=== PATIENT | female | born 1960 | race Caucasian/White ===

== ENCOUNTER 2023-03-08 10:03 | Outpatient (CLI) | payer MEDICARE, MEDICAID, SELFPAY | END 2023-03-08 10:04 | disposition home or self-care (01) | LOC: AMB 03-13 17:09 | PROVIDERS: PCP Family Medicine; Visit Provider Student in an Organized Health Care Education/Training Program | DX: S79.912A Unspecified injury of left hip, initial encounter (principal); W06.XXXA Fall from bed, initial encounter; Y92.003 Bedroom of unspecified non-institutional (private) residence as the place of occurrence of the external cause | CPT/HCPCS: A0425; A0427 ==

== ENCOUNTER 2023-03-08 10:17 | Inpatient (IN) | payer MEDICARE, MEDICAID, SELFPAY ==
[2023-03-08] VITALS (11 sets, daily range): BP systolic 83–154; BP diastolic 26–84; PULSE 90–110; RESP 16–18; TEMP 36.7–37; O2SAT 86–97; BMI 55.7; BMI 57.2
--- NOTE | 2023-03-08 11:15 | CRLHL7_ITS ---
For Patients: As a result of the Century Cures Act, medical imaging exams and procedure reports are released immediately into your electronic medical record. You may view this report before your referring provider. If you have questions, please contact your health care provider. HISTORY: Blunt trauma. Fall. Pain. TECHNIQUE: Intravenous contrast enhanced CT of the chest, abdomen and pelvis. 150 mL Isovue-370 intravenous contrast was administered. COMPARISON: Chest CT from 06/03/2021. FINDINGS: Chest: Atherosclerotic changes of the thoracic aorta without aneurysm or dissection. There is no pericardial effusion. No mediastinal hematoma. Assessment for pulmonary embolism limited by respiratory motion artifact. There is no large/central pulmonary embolism. No technically enlarged mediastinal or hilar lymph nodes. - Lung parenchymal assessment limited by respiratory motion artifact. There are areas of atelectasis within both lungs. Ground-glass opacity within the right middle lobe laterally may relate either to atelectasis or ground-glass infiltrate. There is no lung consolidation. No pleural effusion or pneumothorax. Assessment for pulmonary nodules is severely limited by respiratory motion artifact. - Rib assessment limited by motion artifact. No acute displaced rib fracture is seen. No acute sternal fracture. There degenerative changes of the thoracic spine. No acute thoracic spine fracture. ----- Abdomen and pelvis: No acute liver parenchymal injury. There is fatty infiltration of liver. Gallbladder is distended with small gallstones. No biliary ductal dilatation. No definite acute splenic parenchymal injury. The low density noted posteriorly is felt to be artifactual. No focal pancreatic abnormality. Bilateral adrenal gland nodules are unchanged. No acute renal parenchymal injury. No hydronephrosis. No renal mass is inherent. Urinary bladder is decompressed by a catheter. - No dilated small bowel loops. No appendicitis. Colonic diverticulosis without acute diverticulitis. No fluid collection or free air. - Atherosclerotic changes of the abdominal aorta without aneurysm. Small nonspecific retroperitoneal lymph nodes. - No acute pelvic fracture. There are degenerative changes of the sacroiliac joints and hips. Degenerative changes within the spine. IMPRESSION: 1. No acute fractures. 2. Areas of atelectasis within both lungs. Ground-glass opacity within the right middle lobe may relate to atelectasis or ground-glass infiltrate. No pneumothorax or pleural effusion. 3. No mediastinal hematoma or acute traumatic aortic injury. 4. No solid organ injury within the abdomen. No abdominal or pelvic free fluid. 5. Fatty infiltration of the liver. Distended gallbladder with small gallstones. 6. No change in adrenal gland nodules. Dictated by Conor Ballard MD @ 03/08/2023 4:58:35 PM Please note that all CT scans at this facility use dose modulation, iterative reconstruction, and/or weight-based dosing when appropriate to reduce radiation dose to as low as reasonably achievable. Dictated by: Conor Ballard MD @ 03/08/2023 16:59:01 (Electronically Signed)
--- NOTE | 2023-03-08 11:15 | CRLHL7_ITS ---
For Patients: As a result of the Cures Act, medical imaging exams and procedure reports are released immediately into your electronic medical record. You may view this report before your referring provider. If you have questions, please contact your health care provider. INDICATION: Fall. Neck pain. COMPARISON: 06/03/2021. TECHNIQUE: Noncontrast CT cervical spine. FINDINGS: Stable straightening and reversal of the normal cervical lordosis. Otherwise, normal vertebral body and facet alignment. No acute fractures. No vertebral body loss of height. No spondylolisthesis. No fractures of the visualized upper ribs. No prevertebral soft tissue swelling. Cervical spondylosis with multilevel disc degeneration. C1-2: No spinal canal narrowing. C2-3, C3-4 and C4-5: No spinal canal neural foraminal narrowing. C5-6: No spinal canal neural foraminal narrowing. C6-7: Disc degeneration. No narrowing of the spinal canal. Mild narrowing of the right neural foramen. No narrowing of left neural foramen. C7-T1: No spinal canal neural foraminal narrowing. Lung apices are clear. Carotid artery calcifications at the level of C3-4. IMPRESSION: 1. Straightening of the normal cervical lordosis. Otherwise normal alignment. 2. No acute fractures. No vertebral body loss of height. 3. No prevertebral soft tissue swelling. 4. Stable cervical spondylosis Please note that all CT scans at this facility use dose modulation, iterative reconstruction, and/or weight-based dosing when appropriate to reduce radiation dose to as low as reasonably achievable. Dictated by Tre Sarmiento MD @ 03/08/2023 2:18:31 PM (Electronically Signed)
--- NOTE | 2023-03-08 11:16 | CRLHL7_ITS ---
For Patients: As a result of the Century Cures Act, medical imaging exams and procedure reports are released immediately into your electronic medical record. You may view this report before your referring provider. If you have questions, please contact your health care provider. INDICATION: Head trauma. Comparison 06/03/2021. TECHNIQUE: Noncontrast CT head. FINDINGS: Mild motion artifact. Normal brain parenchymal morphology. 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 Associated ex vacuo dilatation of the right lateral ventricle. No acute intracranial hemorrhage, acute infarct, mass effect, or fracture. No midline shift. Normal calvarium and skull base. Visualized paranasal sinuses are clear. Allowing for artifact, mastoid air cells are grossly clear. IMPRESSION: 1. Motion artifact. 2. No acute intracranial abnormality. 3. 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 Ex vacuo dilatation of the right lateral ventricle Please note that all CT scans at this facility use dose modulation, iterative reconstruction, and/or weight-based dosing when appropriate to reduce radiation dose to as low as reasonably achievable. Dictated by Tre Sarmiento MD @ 03/08/2023 1:52:07 PM (Electronically Signed)
--- NOTE | 2023-03-08 11:18 | CRLHL7_ITS ---
For Patients: As a result of the Cures Act, medical imaging exams and procedure reports are released immediately into your electronic medical record. You may view this report before your referring provider. If you have questions, please contact your health care provider. INDICATION: BLUNT TRAUMA SHOULDER PAIN HISTORY: Fall. Evaluate for fracture. COMPARISON: None. TECHNIQUE: Left shoulder, 3 views. 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 There is no acute fracture visualized. Mineralization is reduced. No foreign body or soft tissue gas. The scapula appears intact. No dislocation on the transscapular Y-view. IMPRESSION: 1. No acute bone abnormality. 2. Degenerative arthrosis. Dictated by Demetrio Watkins MD @ 03/08/2023 2:19:13 PM Dictated by: Demetrio Watkins MD @ 03/08/2023 14:19:20 (Electronically Signed)
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
[2023-03-08 11:34] LABS: Lactate* 2.3 mmol/L (0.5-1.9)
[2023-03-08 11:55] LABS: Albumin* 3.7 g/dL (3.3-5.0); Chloride* 100 mmol/L (96-114)
[2023-03-08 11:56] LABS: Sodium* 135 mmol/L (135-149)
[2023-03-08 11:58] LABS: Anion Gap 11 mEq/L (7-15); Bilirubin Total* 0.9 mg/dL (0.1-1.5); Carbon Dioxide* 24 mmol/L (20-32); Creatinine* 0.9 mg/dL (0.5-1.5); Est. Creatinine Clearance* 55.31; Estimated Glomerular Filt Rate 73 ml/min; Total Protein* 6.7 g/dL (6.0-8.3)
[2023-03-08 11:59] LABS: Alanine Aminotransferase* 21 U/L (4-35); Alkaline Phosphatase* 109 U/L (40-150); Blood Urea Nitrogen* 26 mg/dL (7-30); Calcium* 8.9 mg/dL (8.4-10.6); Glucose* 105 mg/dL (60-115)
[2023-03-08 12:11] LABS: Basophils Absolute Auto 0.01 K/uL (0.00-0.30); Basophils Percent Auto 0.1 % (0.0-3.0); Eosinophils Absolute Auto 0.08 K/uL (0.00-0.50); Eosinophils Percent Auto 1.2 % (0.0-7.0); Hematocrit 39.6 % (33.0-51.0); Hemoglobin* 11.9 gm/dL (12.0-16.0); Immature Granulocytes Abs Auto 0.01 K/uL (0.00-0.30); Immature Granulocytes Pct Auto 0.1 %; Lymphocytes Percent Auto 9.9 % (20-44); Mean Corpuscular HGB Conc 30 gm/dL (32-36); Mean Corpuscular Hemoglobin 27 pg (26-34); Mean Corpuscular Volume 90 fL (80-100); Monocytes Percent Auto 8.7 % (0.0-11.0); Platelet Count* 223 K/uL (140-440)
--- NOTE | 2023-03-08 12:12 | ED.NURSE ---
placed a anderson cath in #18 fr to gravity and collected the urine from the clean anderson bag and sent to lab. urine is cloudy, straw color, and sediment. drained out 600 plus urine.
[2023-03-08 12:14] LABS: Troponin I* < 0.01 ng/mL (0.01-0.04)
[2023-03-08 12:17] LABS: PCR FLU A Negative PCR FLU A (Negative); PCR FLU B Negative PCR FLU B (Negative); PCR RSV Negative PCR RSV (Negative)
[2023-03-08 12:18] LABS: Slide Review Reflex No
[2023-03-08 12:18] LABS: SARS PCR* Negative SARS-CoV-2 (Negative)
[2023-03-08 12:23] LABS: INR 2.62 (0.91-1.10); Prothrombin Time 29.3 Seconds
[2023-03-08 12:28] LABS: Aspartate Amino Transferase* 51 U/L (12-35); Potassium* 5.1 mmol/L (3.6-5.1)
[2023-03-08 12:32] LABS: Appearance Urine Cloudy (Clear); Bilirubin Urine Negative (Negative); Blood Urine 3+ (Negative); Color Urine Dark yellow (Yellow); Glucose Urine Negative (Negative); Ketones Urine Trace (Negative); Leukocyte Esterase Urine 3+ (Negative); Nitrite Urine Positive (Negative); Protein Urine 2+ (Negative); Specific Gravity Urine 1.025 (1.000-1.030); Urobilinogen Urine 0.2 (0.2-1.0)
[2023-03-08 12:38] LABS: Bacteria Urine Many; RBC Urine >100 (0-2); WBC Urine >100 (0-5)
[2023-03-08] MEDS: 0.9 % SODIUM CHLORIDE 1000 ml 1,000 ML IV (13:58)
[2023-03-08] MEDS: fentaNYL 100 MCG/2 ML inj 25 MCG IVP (14:01)
[2023-03-08] MEDS: cefTRIAXone 1 GM in 0.9 % SODIUM CHLORIDE Mini-bag 100 ML IVPB (14:29)
--- NOTE | 2023-03-08 18:58 | P.IMHP_ITS ---
Hospitalist- H&P: JUDY History of Present Illness Time Seen by Provider: 18:59 Date Seen: 03/08/23 Chief complaint: Fall, hip pain Narrative: Tatianna Stinson is a 62 year old female history of left arm and partial leg paresis secondary to a stroke in 2018 who lives at home with several generations, fell out of bed this morning and when EMS arrived, was reportedly covered in feces and the house was in shambles. Her daughter, Harriet, who does not live with her, is here with her and called Douglas, the patient's son who lives in [place], and put him on speaker for the duration of the visit. Harriet and Douglas asked me if the ER physician had clued me in, but would not speak of anything about the condition of the home or her care in front of her, and remained in her room with her. Tatianna remembers trying to get out of bed using the bar that she has above her bed. She felt dizzy and ended up falling onto her left side. She has been feeling dizzy frequently lately for which she saw Dr. Damon just this past week. Her daughter, Harriet, took her to that visit. At that visit her blood pressure was low as it had been for several visits previously. Dr. Damon decreased her lisinopril from 20 to 5. She just started taking that dose 2 days ago. He also stopped warfarin because she had been supratherapeutic for several checks and she was going to start on Eliquis instead. Please also says that she has been feeling foggy or cloudy in the head lately. Her children have not noticed any changes in her mentation, but note that she sometimes forgets what day it is and her memory has been declining over months. Harriet works at [employer], and tries to check in on her mom as often as she can. Douglas calls her to talk with her, but because he lives in [place] has only been able to see her about once a year, and does have a visit scheduled in a few weeks. Ivory tells me that she has been working with Tatianna's home health care case manager to get various things around the house fixed such as a tub. Tatianna has not been able to bathe in quite some time because the tub is not working and Tatianna often refuses care. Her children tell me that Tatianna will pick favorites for caregivers and if things are not done exactly as Tatianna wants, she will refuse cares altogether. Tatianna has been refusing to wear her home oxygen during the day. She will bleed it through her CPAP at night, but the mask is broken and so she just holds the hose near her mouth. Harriet tells me that this is what they were told to do until Harriet could get a new mask for it. Douglas is concerned that Tatianna has gained weight since she had a stroke in 2018 and her weight gain has made it difficult for her to move and so she has gotten weak. She is now using a wheelchair. Douglas also notes that Tatianna has had problems with incontinence of urine and he thinks that the mesh from her bladder repair many years ago is starting to give out. They have seen Dr. Damon about this, no referrals were made. Tatianna has had chronic lower extremity edema, but no shortness of breath. She has difficulty swallowing pills, but this is not new. Also since her stroke she has had chronic left shoulder pain and they have been told that this is likely from nerve damage from the stroke. In the last few days to weeks she has had increas ed frequency of urine, incontinence of urine although this is not new, and felt extra thirsty. All of them tell me that anxiety and depression have been a big problem and Tatianna has been working with a psychiatrist to adjust medications for insomnia. Review of Systems Status of ROS: Reports: 10 or more systems reviewed and unremarkable except as noted in History and below Narrative: Feels cold now in the hospital, but did not have chills before presenting here. Const: Reports: change in weight (weight gain since stroke, depression) and change in sleep pattern (worked nights for years, now retired, has difficulty sleeping); Denies: fever or chills Eyes: Denies: change in vision ENMT: Reports: difficulty swallowing (pills, h/o dysphagia, esoph dilation procedure) Cardio: Reports: edema, swelling of feet/ankles and lightheadedness; Denies: shortness of breath with exertion Resp: Denies: shortness of breath GI: Reports: difficulty swallowing (pills, h/o dysphagia, esoph dilation procedure); Denies: abdominal pain, nausea or vomiting : Reports: urinary frequency and urinary incontinence; Denies: painful urination Musculo: Reports: muscle weakness (generalized, also left arm from stroke) Integ/Breast: Reports: rash, skin pain and sores Neuro: Reports: dizziness and other Psych: Reports: anxiety, loss of interest, memory loss and other (cries out at night) Endo: Reports: excessive urination, excessive thirst and change in body appearance Justin/Lymph: Reports: easy bruising [facility] History (Updated 03/08/23 @ 23:23 by Diane Colvin MD) Pap smear for cervical cancer screening ?Z12.4 - Encounter for screening for malignant neoplasm of cervix (ICD-10) Morbid exogenous obesity ?E66.01 - Morbid (severe) obesity due to excess calories (ICD-10) Dementia with mood disturbance ?F03.93 - Unspecified dementia, unspecified severity, with mood disturbance (ICD-10) Seizures ?R56.9 - Unspecified convulsions (ICD-10) Paroxysmal atrial fibrillation ?I48.0 - Paroxysmal atrial fibrillation (ICD-10) Sensorineural hearing loss of both ears ?H90.3 - Sensorineural hearing loss, bilateral (ICD-10) Insomnia ?G47.00 - Insomnia, unspecified (ICD-10) Personality disorder ?F60.9 - Personality disorder, unspecified (ICD-10) Pharyngoesophageal dysphagia (~07/2017) ?R13.14 - Dysphagia, pharyngoesophageal phase (ICD-10) Pain medication agreement ?Z02.89 - Encounter for other administrative examinations (ICD-10) Hemiplegia ?G81.90 - Hemiplegia, unspecified affecting unspecified side (ICD-10) Anxiety disorder ?F41.9 - Anxiety disorder, unspecified (ICD-10) Severe episode of recurrent major depressive disorder, without psychotic features ?F33.2 - Major depressive disorder, recurrent severe without psychotic features (ICD-10) Hyperplastic colon polyp (~06/2012) ?K63.5 - Polyp of colon (ICD-10) Essential hypertension ?I10 - Essential (primary) hypertension (ICD-10) GERD (gastroesophageal reflux disease) ?K21.9 - Gastro-esophageal reflux disease without esophagitis (ICD-10) Nonunion of joint fusion Tobacco dependency ?F17.200 - Nicotine dependence, unspecified, uncomplicated (ICD-10) Hypercholesteremia ?E78.00 - Pure hypercholesterolemia, unspecified (ICD-10) CVA (cerebral vascular accident) (~09/2020) ?I63.9 - Cerebral infarction, unspecified (ICD-10) Surgical History (Updated 03/08/23 @ 18:51 by Diane Colvin MD) History of tubal ligation (~1988) ?Z98.51 - Tubal ligation status (ICD-10) Hx of tonsillectomy (~1969) ?Z90.89 - Acquired absence of other organs (ICD-10) H/O foot surgery (~09/15/12) ?Z98.890 - Other specified postprocedural states (ICD-10) History of axillary surgery (~11/08/10) ?Z98.890 - Other specified postprocedural states (ICD-10) Status post right foot surgery (~01/23/10) ?Z98.890 - Other specified postprocedural states (ICD-10) History of lumbar laminectomy (~1997) ?Z98.890 - Other specified postprocedural states (ICD-10) History of total knee arthroplasty ?Z96.659 - Presence of unspecified artificial knee joint (ICD-10) History of section ?Z98.891 - History of uterine scar from previous surgery (ICD-10) History of carpal tunnel release (~2010) ?Z98.890 - Other specified postprocedural states (ICD-10) History of bunionectomy (~2005) ?Z98.890 - Other specified postprocedural states (ICD-10) H/O bladder repair surgery ?Z98.890 - Other specified postprocedural states (ICD-10) H/O arthroscopy (~03/07/15) ?Z98.890 - Other specified postprocedural states (ICD-10) H/O esophagogastroduodenoscopy ?Z98.890 - Other specified postprocedural states (ICD-10) Hx of colonoscopy ?Z98.890 - Other specified postprocedural states (ICD-10) Family History (Updated 03/08/23 @ 18:55 by Diane Colvin MD) Brother Alcohol dependence Sister Alcohol dependence Brother Cancer Father Lymphoma Mother Lung cancer Diabetes Aunt Breast cancer Maternal Grandmother Breast cancer Brother Myocardial infarction, Onset Age: 47 Aunt Heart disease Uncle Heart disease Social History (Updated 03/08/23 @ 20:44 by Diane Colvin MD) Narrative: Lives with , 1 daughter and her son and his fiancee. She has smoked 1 pack of cigarettes per day for 30 years. She denies alcohol use. She tried some THC gummies earlier this month for sleeping, but they did not do anything, so she stopped them, and she says that was the only time she has ever used recreational drugs. What is your current living situation?: I presently have a place to live Problems where you live: no known problems Problems where you live details: n/a In the past 12 months, utilities in danger of being shut off: no In past 12 months, lack of transportation kept you from medical appts, meetings, work, or getting things needed for daily living: no In the past 12 mos, have been you worried that your food would run out before you had money to buy more?: never true In the past 12 mos, the food you bought just didn't last and you didn't have money to buy more?: never true Do you use any of these nicotine containing products: None Second hand tobacco smoke exposure: No How often do you have a drink containing alcohol: never How often do you have six or more drinks on one occasion: Never AUDIT-C Alcohol total score: 0 Caffeine: Yes (Soda) How often does anyone, including family, friends and others, physically hurt you : rarely How often does anyone, including family, friends and others, insult or talk down to you: frequently How often does anyone, including family, friends and others, threaten you with harm: rarely How often does anyone, including family, friends and others, scream or curse at you: rarely Meds Home Medications and Allergies Home Medications Medication Instructions Recorded Confirmed Type albuterol sulfate 90 mcg/actuation 2 puff inhalation Q4H PRN 03/08/23 03/08/23 History aerosol inhaler apixaban 5 mg tablet (Eliquis) 5 mg PO BID 03/08/23 03/08/23 History aspirin 81 mg capsule 81 mg PO DAILY 03/08/23 03/08/23 History atorvastatin 40 mg tablet 40 mg PO DAILY 03/08/23 03/08/23 History buspirone 30 mg tablet 30 mg PO BID 03/08/23 03/08/23 History escitalopram oxalate 20 mg tablet 20 mg PO DAILY 03/08/23 03/08/23 History fluticasone propionate 50 1 spray intranasal DAILY 03/08/23 03/08/23 History mcg/actuation nasal spray,suspension gabapentin 400 mg capsule 400 mg PO TID 03/08/23 03/08/23 History lamotrigine 100 mg tablet 200 mg PO QPM 03/08/23 03/08/23 History levetiracetam 500 mg tablet 500 mg PO BID 03/08/23 03/08/23 History lisinopril 5 mg tablet 5 mg PO DAILY 03/08/23 03/08/23 History loratadine 10 mg tablet (Claritin) 10 mg PO DAILY 03/08/23 03/08/23 History melatonin 5 mg capsule 10 mg PO QPM 03/08/23 03/08/23 History mirtazapine 30 mg tablet 30 mg PO QPM 03/08/23 03/08/23 History omeprazole 20 mg capsule,delayed 20 mg PO DAILY 03/08/23 03/08/23 History release oxybutynin chloride 15 mg 15 mg PO DAILY 03/08/23 03/08/23 History tablet,extended release 24 hr trazodone 100 mg tablet 200 mg PO QPM 03/08/23 03/08/23 History trazodone 50 mg tablet 25 mg PO DAILY PRN 03/08/23 03/08/23 History Home Medication Comments: Uses CPAP, home O2 (2L continuous), and wheelchair Allergies Allergy/AdvReac Type Severity Reaction Status Date / Time Penicillins Allergy Intermediate Verified 03/08/23 10:42 venlafaxine [From Effexor] Allergy Mild Hives Verified 03/08/23 10:42 Venlafaxine Analogues Allergy Mild hives Verified 03/08/23 14:21 Exam Narrative: Exam Narrative: General: No acute distress. Awake alert oriented x3 and to situation. Morbidly obese. Affect: Depressed, withdrawn. HEENT: Normocephalic atraumatic, pupils equally round and reactive to light and accommodation. Oropharynx clear, does not have teeth. Mucous membranes are moist. No cervical lymphadenopathy, thyromegaly or carotid bruits. No JVD. Cardiovascular: Regular rate and rhythm. No murmurs, gallops, or rubs. Chest: No increased work of breathing. Clear to auscultation bilaterally. No crackles or wheezes. Abdomen: Bowel sounds present. Soft, nondistended, nontender. Extremities: 2+ pitting edema bilaterally to the back of her thighs, no cyanosis or clubbing. Feet are edematous, without redness or ulcers. Skin: No jaundice, no pallor, extensive maceration and erythema in all skin folds especially the left groin and right breast. Large areas of ecchymosis over the anterior left chest, lateral left thigh, and posterior lateral left ankle. Neuro: Decreased strength of left leg and marked left arm. Strength of right arm and leg are intact. According to her daughter was in the room, these are baseline deficits. Const: Vital Signs, click to edit/add: Vital Signs - 24 hr 03/08/23 10:20 03/08/23 10:30 03/08/23 10:33 Temperature 98.6 F Pulse Rate [Pulse Oximeter] 106 H 102 H 107 H Respiratory Rate 18 18 16 Blood Pressure [Ri ght Arm] Blood Pressure [Ri ght Upper Arm] 112/59 L 83/64 L 112/59 L Pulse Oximetry 88 88 86 L Oxygen Delivery Me thod Room Air Room Air Room Air 03/08/23 11:00 03/08/23 11:45 03/08/23 12:00 Temperature Pulse Rate [Pulse Oximeter] 110 H 102 H 108 H Respiratory Rate 18 18 18 Blood Pressure [Ri ght Arm] Blood Pressure [Ri ght Upper Arm] 121/65 131/55 L 154/84 H Pulse Oximetry 89 91 91 Oxygen Delivery Mn thod Room Air Nasal Cannula Nasal Cannula 03/08/23 14:00 03/08/23 18:03 Temperature 98.4 F Pulse Rate [Pulse Oximeter] 97 90 Respiratory Rate 16 16 Blood Pressure [Ri ght Arm] 114/42 L Blood Pressure [Ri ght Upper Arm] 117/54 L Pulse Oximetry 97 90 Oxygen Delivery Me thod Room Air Room Air Hospitalist - H&P: Result Labs Labs: Short CBC 03/08/23 Range/Units 11:40 WBC 6.80 (4.50-11.00) K/uL Hgb 11.9 L (12.0-16.0) gm/dL Hct 39.6 (33.0-51.0) % Plt Count 223 (140-440) K/uL BMP 03/08/23 11:15 Sodium 135 Potassium 5.1 Chloride 100 Carbon Dioxide 24 BUN 26 Creatinine 0.9 Glucose 105 Calcium 8.9 Cardiac Enzymes 03/08/23 Range/Units 11:15 Troponin I < 0.01 L (0.01-0.04) ng/mL Liver Function 03/08/23 Range/Units 11:15 Total Bilirubin 0.9 (0.1-1.5) mg/dL AST 51 H (12-35) U/L ALT 21 (4-35) U/L Alkaline Phosphatase 109 (40-150) U/L Albumin 3.7 (3.3-5.0) g/dL Urine 03/08/23 Range/Units 12:10 Urine Color Dark yellow (Yellow) Urine Appearance Cloudy A (Clear) Urine pH 7.0 (5.0-8.5) Ur Specific [place] 1.025 (1.000-1.030) Urine Protein 2+ A (Negative) Urine Glucose (UA) Negative (Negative) EKG: Normal sinus rhythm, 97 beats per minute, cannot rule out anterior infarct, age undetermined. Ordering Physician: Carmelo Patel M.D. Date of Service: 03/08/23 Procedure(s): CT cervical spine wo con Accession Number(s): [id number] cc: Carmelo Patel M.D.; Cruz Damon M.D.~ For Patients: As a result of the Cures Act, medical imaging exams and procedure reports are released immediately into your electronic medical record. You may view this report before your referring provider. If you have questions, please contact your health care provider. INDICATION: Fall. Neck pain. COMPARISON: 06/03/2021. TECHNIQUE: Noncontrast CT cervical spine. FINDINGS: Stable straightening and reversal of the normal cervical lordosis. Otherwise, normal vertebral body and facet alignment. No acute fractures. No vertebral body loss of height. No spondylolisthesis. No fractures of the visualized upper ribs. No prevertebral soft tissue swelling. Cervical spondylosis with multilevel disc degeneration. C1-2: No spinal canal narrowing. C2-3, C3-4 and C4-5: No spinal canal neural foraminal narrowing. C5-6: No spinal canal neural foraminal narrowing. C6-7: Disc degeneration. No narrowing of the spinal canal. Mild narrowing of the right neural foramen. No narrowing of left neural foramen. C7-T1: No spinal canal neural foraminal narrowing. Lung apices are clear. Carotid artery calcifications at the level of C3-4. IMPRESSION: 1. Straightening of the normal cervical lordosis. Otherwise normal alignment. 2. No acute fractures. No vertebral body loss of height. 3. No prevertebral soft tissue swelling. 4. Stable cervical spondylosis Please note that all CT scans at this facility use dose modulation, iterative reconstruction, and/or weight-based dosing when appropriate to reduce radiation dose to as low as reasonably achievable. Dictated by Tre Sarmiento MD @ 03/08/2023 2:18:31 PM (Electronically Signed) Ordering Physician: Carmelo Patel M.D. Date of Service: 03/08/23 Procedure(s): CT chest abdomen pelv w con Accession Number(s): [id number] cc: Carmelo Patel M.D.; Cruz Damon M.D.~ For Patients: As a result of the Cures Act, medical imaging exams and procedure reports are released immediately into your electronic medical record. You may view this report before your referring provider. If you have questions, please contact your health care provider. HISTORY: Blunt trauma. Fall. Pain. TECHNIQUE: Intravenous contrast enhanced CT of the chest, abdomen and pelvis. 150 mL Isovue-370 intravenous contrast was administered. COMPARISON: Chest CT from 06/03/2021. FINDINGS: Chest: Atherosclerotic changes of the thoracic aorta without aneurysm or dissection. There is no pericardial effusion. No mediastinal hematoma. Assessment for pulmonary embolism limited by respiratory motion artifact. There is no large/central pulmonary embolism. No technically enlarged mediastinal or hilar lymph nodes. - Lung parenchymal assessment limited by respiratory motion artifact. There are areas of atelectasis within both lungs. Ground-glass opacity within the right middle lobe laterally may relate either to atelectasis or ground-glass infiltrate. There is no lung consolidation. No pleural effusion or pneumothorax. Assessment for pulmonary nodules is severely limited by respiratory motion artifact. - Rib assessment limited by motion artifact. No acute displaced rib fracture is seen. No acute sternal fracture. There degenerative changes of the thoracic spine. No acute thoracic spine fracture. ----- Abdomen and pelvis: No acute liver parenchymal injury. There is fatty infiltration of liver. Gallbladder is distended with small gallstones. No biliary ductal dilatation. No definite acute splenic parenchymal injury. The low density noted posteriorly is felt to be artifactual. No focal pancreatic abnormality. Bilateral adrenal gland nodules are unchanged. No acute renal parenchymal injury. No hydronephrosis. No renal mass is inherent. Urinary bladder is decompressed by a catheter. - No dilated small bowel loops. No appendicitis. Colonic diverticulosis without acute diverticulitis. No fluid collection or free air. - Atherosclerotic changes of the abdominal aorta without aneurysm. Small nonspecific retroperitoneal lymph nodes. - No acute pelvic fracture. There are degenerative changes of the sacroiliac joints and hips. Degenerative changes within the spine. IMPRESSION: 1. No acute fractures. 2. Areas of atelectasis within both lungs. Ground-glass opacity within the right middle lobe may relate to atelectasis or ground-glass infiltrate. No pneumothorax or pleural effusion. 3. No mediastinal hematoma or acute traumatic aortic injury. 4. No solid organ injury within the abdomen. No abdominal or pelvic free fluid. 5. Fatty infiltration of the liver. Distended gallbladder with small gallstones. 6. No change in adrenal gland nodules. Dictated by Conor Ballard MD @ 03/08/2023 4:58:35 PM Please note that all CT scans at this facility use dose modulation, iterative reconstruction, and/or weight-based dosing when appropriate to reduce radiation dose to as low as reasonably achievable. Dictated by: Conor Ballard MD @ 03/08/2023 16:59:01 (Electronically Signed) Ordering Physician: Carmelo Patel M.D. Date of Service: 03/08/23 Procedure(s): CT head/brain wo [facility] Accession Number(s): [id number] cc: Carmelo Patel M.D.; Cruz Damon M.D.~ For Patients: As a result of the 21st Century Cures Act, medical imaging exams and procedure reports are released immediately into your electronic medical record. You may view this report before your referring provider. If you have questions, please contact your health care provider. INDICATION: Head trauma. Comparison 06/03/2021. TECHNIQUE: Noncontrast CT head. FINDINGS: Mild motion artifact. Normal brain parenchymal morphology. 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 Associated ex vacuo dilatation of the right lateral ventricle. No acute intracranial hemorrhage, acute infarct, mass effect, or fracture. No midline shift. Normal calvarium and skull base. Visualized paranasal sinuses are clear. Allowing for artifact, mastoid air cells are grossly clear. IMPRESSION: 1. Motion artifact. 2. No acute intracranial abnormality. 3. 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 Ex vacuo dilatation of the right lateral ventricle Please note that all CT scans at this facility use dose modulation, iterative reconstruction, and/or weight-based dosing when appropriate to reduce radiation dose to as low as reasonably achievable. Dictated by Tre Sarmiento MD @ 03/08/2023 1:52:07 PM (Electronically Signed) Ordering Physician: Carmelo Patel M.D. Date of Service: 03/08/23 Procedure(s): XR shoulder LT min 2V Accession Number(s): [id number] cc: Carmelo Patel M.D.; Cruz Damon M.D.~ For Patients: As a result of the Century Cures Act, medical imaging exams and procedure reports are released immediately into your electronic medical record. You may view this report before your referring provider. If you have questions, please contact your health care provider. INDICATION: BLUNT TRAUMA SHOULDER PAIN HISTORY: Fall. Evaluate for fracture. COMPARISON: None. TECHNIQUE: Left shoulder, 3 views. 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 There is no acute fracture visualized. Mineralization is reduced. No foreign body or soft tissue gas. The scapula appears intact. No dislocation on the transscapular Y-view. IMPRESSION: 1. No acute bone abnormality. 2. Degenerative arthrosis. Dictated by Demetrio Watkins MD @ 03/08/2023 2:19:13 PM Dictated by: Demetrio Watkins MD @ 03/08/2023 14:19:20 (Electronically Signed Assessment and Plan Assessment and plan (1) Fall: Problem comment: - Multifactorial secondary to dizziness from low blood pressure, chronic weakne ss of the left arm and left leg from previous stroke, and possibly exacerbated by UTI and pneumonia. Status: Acute (2) Pneumonia: Problem comment: - RML infiltrate, got azithromycin in the emergency department. Will also start Vantin for community-acquired pneumonia. Status: Acute (3) UTI (urinary tract infection): Problem comment: - Symptoms of frequency, was covered in stool on admission, frequently resists cares at home - Start vantin, await culture results Status: Acute (4) Poor social situation: Problem comment: - consult SW Status: Acute (5) Contusion of hip: Problem comment: - CT pelvis shows no fracture - XR femur and ankle pending Status: Acute (6) Hemiparesis affecting left side as late effect of cerebrovascular accident: Status: Chronic (7) Morbid exogenous obesity: Problem comment: - Checked HgbA1C and TSH, both unremarkable Status: Chronic (8) Seizures: Problem comment: - Continue home medications Status: Chronic (9) Anxiety disorder: Problem comment: - Continue home medications Status: Chronic (10) CVA (cerebral vascular accident): Problem comment: - Ischemic embolic - Chronic left arm and some left leg weakness Status: Chronic (11) Pharyngoesophageal dysphagia: Problem comment: - Speech therapy consult for h/o dysphagia, possible aspiration Status: Chronic (12) Personality disorder: Problem comment: - Cluster B traits - Her daughter and son tell me she will have favorites, and this changes frequently. She frequently withdraws. She refuses various cares and does best when spoken to in a quiet voice with good eye contact, not talked down to. Status: Chronic (13) Paroxysmal atrial fibrillation: Problem comment: - She was on warfarin for anticoagulation, but was chronically supratherapeutic and warfarin was discontinued in late February 2023 with the intention of starting Eliquis instead. - She has not been on rate control. HR is mildly elevated, but regular and EKG shows NSR. Monitor on tele. Status: Chronic Plan - Admit for observation, PT, OT, SW consults - Speech therapy for dysphagia and pneumonia, possible aspiration - SW for VA and social situation concerns. - Hold antihypertensives due to low BPs, dizziness. I will try to avoid IVF since she is clinically hypervolemic. - VTE prophylaxis with anticoagulants. TEDs for edema.
[2023-03-08] MEDS: AZITHROMYCIN 500 MG in 0.9 % SODIUM CHLORIDE 250 ml 250 ML 255 MG IVPB (19:09)
--- NOTE | 2023-03-08 20:22 | CRLHL7_ITS ---
For Patients: As a result of the Century Cures Act, medical imaging exams and procedure reports are released immediately into your electronic medical record. You may view this report before your referring provider. If you have questions, please contact your health care provider. INDICATION: Pain and bruising. TECHNIQUE: Three views left ankle. COMPARISON : 05 Nov 2020 IMPRESSION: Band of high attenuation in the medial tibial metaphysis and plafond. Query methylmethacrylate cement from prior surgery. Recessed anchor screw medial pole of the navicular. No acute fracture. Mild osteoarthritis narrowing in the ankle. No obvious effusion. Spurring at the Achilles insertion posterior process calcaneus and moderate os calcis spur. Recessed screw incompletely assessed at the 1st metatarsal distal metaphysis and head. Overall, no meaningful change from comparison. Dictated by Clinton jJ MD @ 03/09/2023 7:24:14 AM (Electronically Signed)
--- NOTE | 2023-03-08 20:22 | CRLHL7_ITS ---
For Patients: As a result of the Cures Act, medical imaging exams and procedure reports are released immediately into your electronic medical record. You may view this report before your referring provider. If you have questions, please contact your health care provider. INDICATION: Fall with pain and bruising. TECHNIQUE: Two views left femur. IMPRESSION: Anatomic alignment at the hip. No obvious dislocation or significant degenerative or inflammatory change with some limitation due to body habitus. Total knee prosthesis. No knee joint effusion. No femoral fracture. Dictated by Clinton Jj MD @ 03/09/2023 7:22:11 AM (Electronically Signed)
[2023-03-08] MEDS: BUSPIRONE 10 MG TABLET 30 MG PO (21:34)
[2023-03-08] MEDS: GABAPENTIN 100 MG CAPSULE 400 MG PO (21:35)
[2023-03-08] MEDS: CEFPODOXIME PROXETIL 200 MG TABLET PO (21:35)
[2023-03-08] MEDS: NYSTATIN POWDER 1 APPLIC TOPICAL (21:36)
[2023-03-08] MEDS: levETIRAcetam 500 MG TABLET PO (21:36)
[2023-03-08] MEDS: APIXABAN 5 MG TABLET PO (21:36)
[2023-03-08 21:41] LABS: Hemoglobin A1C* 5.51 % (0-5.6)
--- NOTE | 2023-03-08 22:09 | PC.NURSE ---
Assist with cares as pt want to be turned. Encouraged to turn to other side to insistent on going back to same side. Repositioned with air mattress and multiple surrounding pillows with all cares explained. Pt yells out that she is scared she will fall off the bed. All cares explained that she is in the hospital with side rails and help as needed. Pt remains anxious. Md aware-no further orders noted.
[2023-03-08] MEDS: TRAZODONE HCL 50 MG TABLET 25 MG PO (22:12)
[2023-03-08] MEDS: ACETAMINOPHEN 325 MG TABLET PO (22:12)
[2023-03-09] VITALS (8 sets, daily range): BP systolic 96–126; BP diastolic 46–64; PULSE 90–99; RESP 16–20; TEMP 36.8–37.5; O2SAT 92–100
--- NOTE | 2023-03-09 05:59 | PC.NURSE ---
Addendum entered by Miguel Peacock RN 03/09/23 06:56: According to lab staff, pt refused lab drawn today. Original Note: Shift note: Pt has been in throughout the shift. Turn and reposition Q2h. Bp was soft at the start of the shift (90/26). Improved to 120/59 at 0300. Pt has been calling more frequently. Continue to has weakness to the left side. No pain reported. Patient has been 2L of oxygen throughout the night.
[2023-03-09] MEDS: BUSPIRONE 10 MG TABLET 30 MG PO ×2 (09:20→20:56)
[2023-03-09] MEDS: levETIRAcetam 500 MG TABLET PO ×2 (09:20→20:50)
[2023-03-09] MEDS: ASPIRIN 81 MG TABLET EC PO (09:20)
[2023-03-09] MEDS: LORATADINE 10 MG TABLET PO (09:20)
[2023-03-09] MEDS: OMEPRAZOLE 20 MG CAPSULE DR PO (09:21)
[2023-03-09] MEDS: GABAPENTIN 100 MG CAPSULE 400 MG PO ×3 (09:21→21:17)
[2023-03-09] MEDS: oxyBUTYnin chloride 5 MG TAB.ER.24 15 MG PO (09:21)
[2023-03-09] MEDS: ATORVASTATIN CALCIUM 40 MG TABLET PO (09:21)
[2023-03-09] MEDS: SODIUM CHLORIDE 0.9 % (FLUSH) 10 ML SYRINGE 5 ML IVF ×2 (09:22→20:57)
[2023-03-09] MEDS: NYSTATIN POWDER 1 APPLIC TOPICAL ×3 (09:23→20:56)
[2023-03-09 09:58] LABS: Eosinophils Absolute Auto 0.08 K/uL (0.00-0.50); Eosinophils Percent Auto 1.5 % (0.0-7.0); Hematocrit 35.5 % (33.0-51.0); Hemoglobin* 10.6 gm/dL (12.0-16.0); Immature Granulocytes Abs Auto 0.01 K/uL (0.00-0.30); Immature Granulocytes Pct Auto 0.2 %; Lymphocytes Percent Auto 18.9 % (20-44); Mean Corpuscular HGB Conc 30 gm/dL (32-36); Mean Corpuscular Hemoglobin 27 pg (26-34); Mean Corpuscular Volume 91 fL (80-100); Monocytes Percent Auto 7.1 % (0.0-11.0); Neutrophils Percent Auto 72.3 % (42.0-72.0); Platelet Count* 209 K/uL (140-440); RDW Coefficient of Variation % 16.9 % (11.5-15.5)
[2023-03-09 10:15] LABS: Slide Review Reflex Yes
[2023-03-09 10:19] LABS: Chloride* 101 mmol/L (96-114); Sodium* 137 mmol/L (135-149)
[2023-03-09 10:20] LABS: Potassium* 4.2 mmol/L (3.6-5.1)
[2023-03-09 10:22] LABS: Anion Gap 7 mEq/L (7-15); Blood Urea Nitrogen* 15 mg/dL (7-30); Carbon Dioxide* 29 mmol/L (20-32); Creatinine* 0.7 mg/dL (0.5-1.5); Est. Creatinine Clearance* 48.87; Estimated Glomerular Filt Rate 98 ml/min
[2023-03-09 10:23] LABS: Calcium* 8.7 mg/dL (8.4-10.6); Glucose* 110 mg/dL (60-115)
[2023-03-09 10:30] LABS: INR 2.31 (0.91-1.10); Prothrombin Time 26.5 Seconds
[2023-03-09 10:35] LABS: Slide Review Acceptable Review (Acceptable)
[2023-03-09] MEDS: ACETAMINOPHEN 325 MG TABLET PO ×2 (11:10→16:45)
[2023-03-09] MEDS: CEFPODOXIME PROXETIL 200 MG TABLET PO ×2 (11:10→20:50)
--- NOTE | 2023-03-09 15:31 | PC.NURSE ---
Shift Note: Significant valentina-cares/bed bath to armpits and groin this morning. Pt noted to have breakdown in both armpits, under right breast, and in her groin folds/under pannus. Nystatin powder applied to all reddened areas after cleansing and drying. Some areas macerated with small amounts of red blood on wiping. Kelley patent and draining cloudy, los colored, foul smelling urine. Total left sided weakness, left extremities padded and elevated. Encouraged low fat meal choices.
--- NOTE | 2023-03-09 16:42 | P.IMPN_ITS ---
Progress Note: A&P Assessment and plan (1) Fall: Problem details: - Multifactorial secondary to dizziness from low blood pressure, chronic weakness of the left arm and left leg from previous stroke, and possibly exacerbated by UTI and pneumonia. Status: Acute (2) UTI (urinary tract infection): Problem details: - Symptoms of frequency, was covered in stool on admission, frequently resists cares at home - Start vantin, await culture results Status: Acute (3) Pneumonia: Problem details: - RML infiltrate, got azithromycin in the emergency department. Will also start Vantin for community-acquired pneumonia. Status: Acute (4) Poor social situation: Problem details: - consult SW Status: Acute (5) CVA (cerebral vascular accident): Problem details: - Ischemic embolic - Chronic left arm and some left leg weakness Status: Chronic (6) Personality disorder: Problem details: - Cluster B traits - Her daughter and son tell me she will have favorites, and this changes frequently. She frequently withdraws. She refuses various cares and does best when spoken to in a quiet voice with good eye contact, not talked down to. Status: Chronic (7) Paroxysmal atrial fibrillation: Problem details: - She was on warfarin for anticoagulation, but was chronically supratherapeutic and warfarin was discontinued in late February 2023 with the intention of starting Eliquis instead. - She has not been on rate control. HR is mildly elevated, but regular and EKG shows NSR. Monitor on tele. Status: Chronic (8) Seizures: Problem details: - Continue home medications Status: Chronic (9) Morbid exogenous obesity: Problem details: - Checked HgbA1C and TSH, both unremarkable Status: Chronic (10) Hypoxia: Problem details: Chronic. Uncertain what baseline is. Also sleep apnea Status: Acute (11) Hemiparesis affecting left side as late effect of cerebrovascular accident: Status: Chronic (12) Acute shoulder pain: Status: Acute (13) Anxiety disorder: Problem details: - Continue home medications Status: Chronic (14) Dementia with mood disturbance: Problem details: Unclear how much cognitive impairment is present. Ongoing assessment. Status: Acute (15) Disability due to neurological disorder: Problem details: Patient is currently fairly severely disabled by left-sided weakness which is old but now recent history of subacute decline with inability to manage at home Status: Acute (16) Obstructive sleep apnea: Status: Acute (17) Pharyngoesophageal dysphagia: Problem details: - Speech therapy consult for h/o dysphagia, possible aspiration Status: Chronic Plan Patient is hospitalized for evaluation and treatment of multiple acute on chronic medical problems. My impression today is that she is fairly severely disabled and unable to care for herself and is not getting the care she needs in her home. Patient is seeking [facility] facility placement for rehabilitation as well. Acutely will treat her UTI and pneumonia and initiate evaluation for management of chronic disabilities and discharge planning Time Spent With Patient Total time spent: Total time spent today is 70 minutes, 50 minutes in coordination of care and discussing with patient and other providers ongoing evaluation management of disabilities and acute illness Subjective Date Seen: 03/09/23 Interval history: Tatianna Stinson is a 62 year old female history of left arm and partial leg paresis secondary to a stroke in 2018 who lives at home with several generations, fell out of bed this morning. When EMS arrived, was reportedly covered in feces and the house was in shambles. Tatianna remembers trying to get out of bed using the bar that she has above her bed. She felt dizzy and ended up falling onto her left side. She has been feeling dizzy frequently lately for which she saw Dr. Damon just this past week. Her daughter, Harriet, took her to that visit. At that visit her blood pressure was low as it had been for several visits previously. Dr. Damon decreased her lisinopril from 20 to 5. She just started taking that dose 2 days ago. He also stopped warfarin because she had been supratherapeutic for several checks and she was going to start on Eliquis instead. Please also says that she has been feeling foggy or cloudy in the head lately. Her children have not no ticed any changes in her mentation, but note that she sometimes forgets what day it is and her memory has been declining over months. Harriet works at [employer], and tries to check in on her mom as often as she can. Douglas calls her to talk with her, but because he lives in [place] has only been able to see her about once a year, and does have a visit scheduled in a few weeks. Harriet tells me that she has been working with Tatianna's manager case management to get various things around the house fixed such as a tub. Tatianna has not been able to bathe in quite some time because the tub is not working and Tatianna often refuses care. Her children tell me that Tatianna will pick favorites for caregivers and if things are not done exactly as Tatianna wants, she will refuse cares altogether. Tatianna has been refusing to wear her home oxygen during the day. She will bleed it through her CPAP at night, but the mask is broken and so she just holds the hose near her mouth. Harriet tells me that this is what they were told to do until Harriet could get a new mask for it. Douglas is concerned that Tatianna has gained weight since she had a stroke in 2018 and her weight gain has made it difficult for her to move and so she has gotten weak. She is now using a wheelchair. Douglas also notes that Tatianna has had problems with incontinence of urine and he thinks that the mesh from her bladder repair many years ago is starting to give out. Since her stroke she has had chronic left shoulder pain and they have been told that this is likely from nerve damage from the stroke. In the last few days to weeks she has had increased frequency of urine, incontinence of urine although this is not new, and felt extra thirsty. All of them tell me that anxiety and depression have been a big problem and Tatianna has been working with a psychiatrist to adjust medications for insomnia. On admission she was identified as having a urinary tract infection and possible pneumonia and was started on ceftriaxone for this. Evaluation today is shown that her hygiene remains poor and nursing staff or able to provide some cleaning. She was found to have erythema and superficial ulcerations in multiple areas of skin folds including her left axilla under breasts under her abdominal pannus and in the inguinal folds. She denies fever or dyspnea but does report she has had some cough. She tells me today that she is able to walk with a 3 prong cane at home but when I see her today she is unable to roll over in bed or sit up without assistance. She is requiring heavy assist of 2 for repositioning. She lives at home with her , a daughter and her daughter's fiance and a grandchild. She tells me that she would like her daughter to move out of their house. This was supposed to be a temporary arrangement but she is concerned it has become more permanent. Her daughter Harriet lives in [place] and is the healthcare power of deputy county attorney. Harriet also sets up her medications. Her son in [place] manages her finances Exam Narrative: Exam Narrative: She is alert and appears in no distress. Her speech is normal. She gives history of recent events with fairly good detail though a number of inconsistencies from what other providers report. Head is without trauma. Oropharynx with small airway. Respirations are clear to auscultation. Cardiovascular: S1, S2, distant heart sounds. Abdomen is soft. She reports mild diffuse tenderness with palpation. Skin folds with erythema and slight ulceration especially in inguinal areas and in the left axilla. Poor hygiene noted. She tolerates very poorly movement on her left side particular left shoulder is very painful with any repositioning. Also her left lower extremity is painful to move. Const: Vital Signs, click to edit/add: Vital Signs - 24 hr 03/08/23 18:03 03/08/23 18:03 03/08/23 19:00 Temperature 98.4 F 98.4 F Pulse Rate Pulse Rate [Pulse Oximeter] 90 102 H Respiratory Rate 16 16 16 Blood Pressure [Ri ght Arm] 114/42 L 90/26 L Pulse Oximetry 90 90 92 Oxygen Delivery Me thod Room Air Room Air Room Air Oxygen Flow Rate 03/08/23 22:37 03/08/23 22:37 03/08/23 22:37 Temperature 98.1 F Pulse Rate Pulse Rate [Pulse Oximeter] 96 96 Respiratory Rate 16 16 16 Blood Pressure [Ri ght Arm] 105/52 L Pulse Oximetry 90 90 Oxygen Delivery Me thod Room Air Nasal Cannula Oxygen Flow Rate 2 03/08/23 23:00 03/09/23 03:00 03/09/23 07:00 Temperature 98.3 F Pulse Rate 95 Pulse Rate [Pulse Oximeter] 92 Respiratory Rate 16 20 Blood Pressure [Ri ght Arm] 120/59 L Pulse Oximetry 93 100 Oxygen Delivery Me thod Nasal Cannula Nasal Cannula Oxygen Flow Rate 2 2 03/09/23 07:00 03/09/23 07:00 03/09/23 07:00 Temperature 98.6 F Pulse Rate 90 Pulse Rate [Pulse Oximeter] 90 90 Respiratory Rate 20 20 Blood Pressure [Ri ght Arm] 111/64 Pulse Oximetry 100 Oxygen Delivery Me thod Nasal Cannula Oxygen Flow Rate 1 03/09/23 11:00 03/09/23 15:40 03/09/23 15:40 Temperature 98.2 F 98.3 F Pulse Rate Pulse Rate [Pulse Oximeter] 92 94 Respiratory Rate 20 18 Blood Pressure [Ri ght Arm] 126/54 L 116/47 L Pulse Oximetry 95 92 92 Oxygen Delivery Me thod Nasal Cannula Room Air Oxygen Flow Rate 1 03/09/23 16:35 Temperature Pulse Rate 94 Pulse Rate [Pulse Oximeter] Respiratory Rate Blood Pressure [Ri ght Arm] Pulse Oximetry Oxygen Delivery Me thod Oxygen Flow Rate Documenting provider has reviewed patient's vital signs: yes Labs Labs: Laboratory Results - last 24 hr 03/08/23 03/08/23 03/09/23 11:15 20:31 09:46 WBC 5.50 RBC 3.90 L Hgb 10.6 L Hct 35.5 MCV 91 MCH 27 MCHC 30 L RDW Coeff of Arturo 16.9 H Plt Count 209 Neut % (Auto) 72.3 H Lymph % (Auto) 18.9 L Kershaw % (Auto) 7.1 Eos % (Auto) 1.5 Baso % (Auto) 0.0 Neut # (Auto) 4.00 Lymph # (Auto) 1.00 Kershaw # (Auto) 0.40 Eos # (Auto) 0.08 Baso # (Auto) 0.00 Abs Immat Gran (auto) 0.01 Imm/Tot Granulo (auto) 0.2 Diff Slide Review Acceptable Review INR 2.31 H Sodium 137 Potassium 4.2 Chloride 101 Carbon Dioxide 29 Anion Gap 7 BUN 15 Creatinine 0.7 Estimated Creat Clear 48.87 Estimated GFR 98 Glucose 110 Hemoglobin A1c 5.51 Calcium 8.7 TSH 2.970 3.250 Lab Acknowledgement Test Added
[2023-03-09] MEDS: AZITHROMYCIN 500 MG in 0.9 % SODIUM CHLORIDE 250 ml 250 ML 255 MG IVPB (17:07)
[2023-03-09] MEDS: lamoTRIgine 100 MG TABLET 200 MG PO (18:03)
[2023-03-09] MEDS: TRAZODONE HCL 50 MG TABLET 200 MG PO (18:04)
[2023-03-09] MEDS: MIRTAZAPINE 15 MG TABLET 30 MG PO (18:04)
--- NOTE | 2023-03-09 22:26 | PC.NURSE ---
Addendum entered by Lizabeth Ayala RN 03/09/23 23:00: Should read: Patient is turned and repositioned more often than Q2H... Original Note: Shift [id number]- Patient is often turned and repositioned >Q2H per her request, though does not want to be positioned toward left side. Ceiling lift utilized, tolerates well, though with some anxiety. Pillows used for offloading. Temperature is a little elevated this evening, later patient complains of being too hot, temperature is decreased at that time- see charting. She is cleaned between skin folds and nystatin applied. Kelley in place and patent. O2 saturations are decreased tonight, 1L O2 applied to keep saturation >90%.
[2023-03-10] VITALS (9 sets, daily range): BP systolic 108–123; BP diastolic 54–62; PULSE 78–92; RESP 16–19; TEMP 36–37.1; O2SAT 86–97
[2023-03-10] MEDS: ACETAMINOPHEN 325 MG TABLET PO ×2 (02:17→09:37)
[2023-03-10] MEDS: TRAZODONE HCL 50 MG TABLET 25 MG PO (02:17)
--- NOTE | 2023-03-10 06:44 | PC.NURSE ---
Shift note: Turned and repo in bed, c/o back discomfort, RN treated per eMAR with relief.
[2023-03-10] MEDS: CEFEPIME HCL 2 GM in 0.9 % SODIUM CHLORIDE Mini-bag 100 ML IVPB ×2 (08:24→20:10)
[2023-03-10] MEDS: NYSTATIN POWDER 1 APPLIC TOPICAL ×3 (08:25→20:36)
[2023-03-10] MEDS: APIXABAN 5 MG TABLET PO ×2 (09:12→20:37)
[2023-03-10] MEDS: levETIRAcetam 500 MG TABLET PO ×2 (09:13→20:36)
[2023-03-10] MEDS: ATORVASTATIN CALCIUM 40 MG TABLET PO (09:13)
[2023-03-10] MEDS: BUSPIRONE 10 MG TABLET 30 MG PO ×2 (09:13→20:37)
[2023-03-10] MEDS: ASPIRIN 81 MG TABLET EC PO (09:13)
[2023-03-10] MEDS: oxyBUTYnin chloride 5 MG TAB.ER.24 15 MG PO (09:13)
[2023-03-10] MEDS: OMEPRAZOLE 20 MG CAPSULE DR PO (09:14)
[2023-03-10] MEDS: FLUTICASONE PROPIONATE NASAL 1 SPRAY NOSTRIL-B (09:14)
[2023-03-10] MEDS: LORATADINE 10 MG TABLET PO (09:14)
[2023-03-10] MEDS: SODIUM CHLORIDE 0.9 % (FLUSH) 10 ML SYRINGE 5 ML IVF ×2 (09:15→23:38)
[2023-03-10] MEDS: GABAPENTIN 100 MG CAPSULE 400 MG PO ×3 (09:37→20:37)
[2023-03-10 09:46] LABS: INR 1.69 (0.91-1.10); Prothrombin Time 20.8 Seconds
--- NOTE | 2023-03-10 13:17 | PM.IMPN1 ---
Progress Note: A&P Assessment and plan (1) Fall: Problem details: - Multifactorial secondary to dizziness from low blood pressure, chronic weakness of the left arm and left leg from previous stroke, and possibly exacerbated by UTI and pneumonia. PT and OT evaluation and treatment. So far patient is requiring a lot of assistance for standing and transferring. Probably needs detention facility Status: Acute (2) UTI (urinary tract infection): Problem details: Gram-negative rods x3 on urine culture pending. Cefepime Status: Acute (3) Pneumonia: Problem details: Possible right middle lobe pneumonia. Initially treated with a azithromycin and ceftriaxone. Now on vancomycin and cefepime. Status: Acute (4) Poor social situation: Problem details: - consult SW. Current arrangements arm not meeting the patient's needs due to her immobility. There appears to be significant family issues. Concern about household and personal hygiene as well Status: Acute (5) CVA (cerebral vascular accident): Problem details: - Ischemic embolic - Chronic left arm and some left leg weakness. Also chronic pain on the left Status: Chronic (6) Personality disorder: Problem details: - Cluster B traits - Her daughter and son tell me she will have favorites, and this changes frequently. She frequently withdraws. She refuses various cares and does best when spoken to in a quiet voice with good eye contact, not talked down to. Status: Chronic (7) Paroxysmal atrial fibrillation: Problem details: - She was on warfarin for anticoagulation, but was chronically supratherapeutic and warfarin was discontinued in late February 2023 with the intention of starting Eliquis instead. - She has not been on rate control. HR is mildly elevated, but regular and EKG shows NSR. Monitor on tele. Status: Chronic (8) Seizures: Problem details: - Continue home medications Status: Chronic (9) Morbid exogenous obesity: Problem details: - Checked HgbA1C and TSH, both unremarkable Status: Chronic (10) Hypoxia: Problem details: Chronic. Uncertain what baseline is. Also sleep apnea. Status: Acute (11) Anxiety disorder: Problem details: - Continue home medications Status: Chronic (12) Dementia with mood disturbance: Problem details: Unclear how much cognitive impairment is present. Ongoing assessment. Status: Acute (13) Disability due to neurological disorder: Problem details: Patient is currently fairly severely disabled by left-sided weakness which is old but now recent history of subacute decline with inability to manage at home Status: Acute (14) Obstructive sleep apnea: Problem details: Not using CPAP Status: Acute (15) Pharyngoesophageal dysphagia: Problem details: Bedside evaluation by speech therapy is reassuring. No need for current dietary modifications Status: Chronic (16) Bacteremia: Problem details: Blood culture positive for Gram-positive cocci. Vancomycin. Recheck cultures. Monitor for source. Status: Acute Plan Admitted to hospital for management of multiple disabilities, urinary tract infection, bacteremia. IV antibiotics. Physical therapy. Barmaid consult Time Spent With Patient Total time spent: Total time spent today is 55 minutes, 40 minutes in coordination of care discussing with patient and other providers management of disabilities, acute infection, disposition Subjective Date Seen: 03/10/23 Interval history: Tatianna Stinson is a 62 year old female history of left arm and partial leg paresis secondary to a stroke in 2018 who lives at home with several generations, fell out of bed this morning. When EMS arrived, was reportedly covered in feces and the house was in shambles. Tatianna remembers trying to get out of bed using the bar that she has above her bed. She felt dizzy and ended up falling onto her left side. She has been feeling dizzy frequently lately for which she saw Dr. Damon just this past week. Her daughter, Harriet, took her to that visit. At that visit her blood pressure was low as it had been for several visits previously. Dr. Damon decreased her lisinopril from 20 to 5. She just started taking that dose 2 days ago. He also stopped warfarin because she had been supratherapeutic for several checks and she was going to start on Eliquis instead. Please also says that she has been feeling foggy or cloudy in the head lately. Her children have not noticed any changes in her mentation, but note that she sometimes forgets what day it is and her memory has been declining over months. Harriet works at [employer], and tries to check in on her mom as often as she can. Douglas calls her to talk with her, but because he lives in [place] has only been able to see her about once a year, and does have a visit scheduled in a few weeks. Harriet tells me that she has been working with Tatianna's rifle case repairer to get various things around the house fixed such as a tub. Tatianna has not been able to bathe in quite some time because the tub is not working and Tatianna often refuses care. Her children tell me that Tatianna will pick favorites for caregivers and if things are not done exactly as Tatianna wants, she will refuse cares altogether. Tatianna has been refusing to wear her home oxygen during the day. She will bleed it through her CPAP at night, but the mask is broken and so she just holds the hose near her mouth. Harriet tells me that this is what they were told to do until Harriet could get a new mask for it. Douglas is concerned that Tatianna has gained weight since she had a stroke in 2018 and her weight gain has made it difficult for her to move and so she has gotten weak. She is now using a wheelchair. Douglas also notes that Tatianna has had problems with incontinence of urine and he thinks that the mesh from her bladder repair many years ago is starting to give out. Since her stroke she has had chronic left shoulder pain and they have been told that this is likely from nerve damage from the stroke. In the last few days to weeks she has had increased frequency of urine, incontinence of urine although this is not new, and felt extra thirsty. All of them tell me that anxiety and depression have been a big problem and Tatianna has been working with a psychiatrist to adjust medications for insomnia. On admission she was identified as having a urinary tract infection and possible pneumonia and was started on ceftriaxone for this. Evaluation today is shown that her hygiene remains poor and nursing staff or able to provide some cleaning. She was found to have erythema and superficial ulcerations in multiple areas of skin folds including her left axilla under breasts under her abdominal pannus and in the inguinal folds. She denies fever or dyspnea but does report she has had some cough. She tells me today that she is able to walk with a 3 prong cane at home but when I see her today she is unable to roll over in bed or sit up without assistance. She is requiring heavy assist of 2 for repositioning. She lives at home with her , a daughter and her daughter's fiance and a grandchild. She tells me that she would like her daughter to move out of their house. Her daughter and family living with her was supposed to be a temporary arrangement but she is concerned it has become more permanent. Her daughter Harriet lives in [place] and is the healthcare power of assistant district attorney. Harriet also sets up her medications. Her son in [place] manages her finances Today she was able to stand holding onto a walker. Nursing staff for still using a ceiling lift to transfer bed to chair. One of her blood cultures is positive. Her urine cultures are still pending showing 3 different gram-negative rods. Exam Narrative: Exam Narrative: She is alert and appears in no distress. Breathing is unlabored with supplemental oxygen. Respirations are clear to auscultation. Cardiovascular: S1, S2, regular rate and rhythm. Abdomen: Bowel sounds active. She has mild diffuse tenderness. She has discomfort with attempts to move her left side. She has no significant edema. Const: Vital Signs, click to edit/add: Vital Signs - 24 hr 03/09/23 15:40 03/09/23 15:40 03/09/23 16:35 Temperature 98.3 F Pulse Rate 94 Pulse Rate [Pulse Oximeter] 94 Respiratory Rate 18 Blood Pressure [Le ft Radial Artery] Blood Pressure [Ri ght Arm] 116/47 L Pulse Oximetry 92 92 Oxygen Delivery Me thod Room Air Oxygen Flow Rate 03/09/23 19:05 03/09/23 23:00 03/09/23 23:00 Temperature 99.5 F Pulse Rate Pulse Rate [Pulse Oximeter] 99 99 Respiratory Rate 18 18 Blood Pressure [Le ft Radial Artery] Blood Pressure [Ri ght Arm] 110/46 L Pulse Oximetry 92 95 Oxygen Delivery Me thod Nasal Cannula Nasal Cannula Oxygen Flow Rate 1 1 03/09/23 23:00 03/09/23 23:54 03/10/23 03:00 Temperature 98.5 F Pulse Rate 92 Pulse Rate [Pulse Oximeter] 92 92 Respiratory Rate 18 18 Blood Pressure [Le ft Radial Artery] 96/51 L Blood Pressure [Ri ght Arm] Pulse Oximetry 94 93 Oxygen Delivery Me thod Nasal Cannula Nasal Cannula Oxygen Flow Rate 1 1 03/10/23 08:28 03/10/23 08:45 03/10/23 08:50 Temperature 96.8 F L Pulse Rate 78 Pulse Rate [Pulse Oximeter] 84 Respiratory Rate 16 Blood Pressure [Le ft Radial Artery] 115/56 L Blood Pressure [Ri ght Arm] Pulse Oximetry 86 L 92 Oxygen Delivery Me thod Room Air Nasal Cannula Oxygen Flow Rate 2 03/10/23 08:52 03/10/23 12:06 Temperature 98.2 F Pulse Rate Pulse Rate [Pulse Oximeter] 85 Respiratory Rate 16 Blood Pressure [Le ft Radial Artery] Blood Pressure [Ri ght Arm] 112/54 L Pulse Oximetry 92 97 Oxygen Delivery Me thod Nasal Cannula Nasal Cannula Oxygen Flow Rate 2 2 Labs Labs: Laboratory Results - last 24 hr 03/10/23 09:21 INR 1.69 H
[2023-03-10] MEDS: ONDANSETRON 2 MG/ML inj 4 MG IVP (14:18)
--- NOTE | 2023-03-10 14:46 | PC.NURSE ---
End of shift report: Patient has been up to the chair X2 for meals today via ceiling lift. Worked with PT/OT today. Was able to stand but very weak and fearful. PIV leaked, new IV placed in right hand. Continues to get IV antibiotics for pneumonia and UTI. Kelley patent and intact. Urine output adequate but on the low end. Encouraging fluids. Speech did a swallow evaluation today and no concerns of aspiration. Encouraged to be up in chair for all meals and tuck chin to swallow. Attempted multiple times to wean off of oxygen but continues to require 2L NC to stay above 90%. Incentive spirometer at bedside and has been doing every hour when nurse enters. Patient does not initiate herself. Left side is paralyzed from previous CVA. Able to feed herself with right hand. Telemetry shows NSR. manager clinical services following for likely need for placement after hospital stay. Skin folds are red and macerated. Bed bath was given and hair was washed. All folds cleaned and dried and nystatin placed. Bruising throughout on arms, legs and buttocks. Patient stated these are from the fall. Has left leg pain but states it is not neuropathic pain, it is from the fall. Tylenol was given for this for relief. Developed 2 bouts of nausea post meals. Zofran was given at 1430 with relief but patient did not want to take all of her gabapentin as she stated I am done, i want to nap, I don't want to take anymore. Patient felt cold all day but no fever present. Heating pad and warm blankets for comfort.
--- NOTE | 2023-03-10 16:39 | PC.SOCIAL ---
Discharge planning: Met with pt regarding d/c plan. Pt states she is willing to go for s short term rehab stay at a alf facility at discharge. Pt does not want to go to [facility] or [facility]. Pt requested hospice social worker contact [facility] and [facility]. Pt requested hospice social worker contact her son, Douglas, regarding other facilities to contact. Called sonDouglas, . Douglas states he lives in [place] and pt wants to come live with him, but needs to be stronger and more independent prior to that move. Emailed resource lists of nursing homes to son and awaiting a list from her regarding potential placement options. Son is aware options may be limited due to pt's weight and that not all facilities can provide care to patients of her weight. Son is pt;'s Healthcare agent and POA for finances. Completed forms are in medical chart.Called [facility], [facility] and [facility] at annika,s request and left messages requesting calls back regarding bed availability and weight limits. Received call from Maria E Pratt at [facility] office stating they have received a report on pt and pt can not safely return to her home. Informed hospice social worker that pt is agreeable to snf placement and this will be the plan for discharge. tanyard worker to update [facility] when placement is located. tanyard worker to follow up as needed. Faxed healthcare directive and POA forms to [facility] Department as requested.
[2023-03-10] MEDS: TRAZODONE HCL 50 MG TABLET 200 MG PO (18:07)
[2023-03-10] MEDS: MIRTAZAPINE 15 MG TABLET 30 MG PO (18:07)
[2023-03-10] MEDS: lamoTRIgine 100 MG TABLET 200 MG PO (18:08)
[2023-03-10] MEDS: MELATONIN 3 MG TABLET 9 MG FEED TUBE (21:35)
--- NOTE | 2023-03-10 23:00 | PC.NURSE ---
Patient alert and oriented to person, place, and time. Patient is 2 assist with ceiling lift. Frequent turn and reposition in bed. Patient has indwelling catheter and is continent of bowel. Patient denies pain at rest, but complains of left leg pain during repositioning. Patient reported mild nausea with movement, no emesis, tolerating regular diet. Family at bedside in evening, patient resting comfortably at end of shift.
[2023-03-11] VITALS (8 sets, daily range): BP systolic 98–127; BP diastolic 52–67; PULSE 75–94; RESP 12–22; TEMP 35.8–37.2; O2SAT 92–97
[2023-03-11 06:32] LABS: HCO3 VBG 33 mmol/L (21-28); PO2 VBG 35.2 mmHG (25-47); pH VBG 7.312 (7.32-7.43)
[2023-03-11 06:35] LABS: PCO2 VBG 65 mmHG (40-50)
[2023-03-11 06:43] LABS: Basophils Absolute Auto 0.01 K/uL (0.00-0.30); Basophils Percent Auto 0.2 % (0.0-3.0); Eosinophils Absolute Auto 0.17 K/uL (0.00-0.50); Hematocrit 39.6 % (33.0-51.0); Hemoglobin* 11.6 gm/dL (12.0-16.0); Immature Granulocytes Abs Auto 0.03 K/uL (0.00-0.30); Immature Granulocytes Pct Auto 0.5 %; Lymphocytes Absolute Auto 1.15 K/uL (0.90-2.90); Lymphocytes Percent Auto 20.3 % (20-44); Mean Corpuscular HGB Conc 29 gm/dL (32-36); Mean Corpuscular Hemoglobin 27 pg (26-34); Mean Corpuscular Volume 91 fL (80-100); Monocytes Percent Auto 7.1 % (0.0-11.0); Neutrophils Absolute Auto 3.91 K/uL (1.7-7.0); Neutrophils Percent Auto 68.9 % (42.0-72.0); Platelet Count* 226 K/uL (140-440); RDW Coefficient of Variation % 16.9 % (11.5-15.5); Red Blood Count 4.34 m/uL (4.00-5.20); White Blood Count* 5.67 K/uL (4.50-11.00)
[2023-03-11 06:49] LABS: Slide Review Reflex No
--- NOTE | 2023-03-11 06:49 | PC.NURSE ---
End of shift [id number]: Patient slept well throughout this shift. Pain to left leg reported with repositioning but denies pain at rest. Catheter patent, draining straw colored urine that is cloudy and has strong odor. Oxygen on at 3L per NC, attempted to reduce oxygen while sleeping but patient's O2 sats fell to 85%, able to maintain sats >89% on 3L. Patient goes between feeling hot and requesting all the bedding be removed to feeling chilled and requesting several warm blankets. Remained afebrile through the night, no diaphoresis noted.
[2023-03-11 07:03] LABS: Chloride* 104 mmol/L (96-114); Potassium* 4.1 mmol/L (3.6-5.1); Sodium* 141 mmol/L (135-149)
[2023-03-11 07:05] LABS: INR 1.59 (0.91-1.10); Prothrombin Time 19.8 Seconds
[2023-03-11 07:06] LABS: Creatinine* 0.6 mg/dL (0.5-1.5); Est. Creatinine Clearance* 48.87; Estimated Glomerular Filt Rate 102 ml/min
[2023-03-11 07:07] LABS: Anion Gap 7 mEq/L (7-15); Blood Urea Nitrogen* 10 mg/dL (7-30); Calcium* 8.7 mg/dL (8.4-10.6); Carbon Dioxide* 30 mmol/L (20-32); Glucose* 102 mg/dL (60-115)
[2023-03-11 07:10] LABS: C Reactive Protein* 5.8 mg/dL (0.5-1.0)
[2023-03-11] MEDS: 0.9 % SODIUM CHLORIDE 250 ml IV (07:49)
[2023-03-11] MEDS: CEFEPIME HCL 2 GM in 0.9 % SODIUM CHLORIDE Mini-bag 100 ML IVPB (07:50)
[2023-03-11] MEDS: SODIUM CHLORIDE 0.9 % (FLUSH) 10 ML SYRINGE 5 ML IVF ×2 (07:51→21:03)
[2023-03-11] MEDS: NYSTATIN POWDER 1 APPLIC TOPICAL ×3 (08:42→21:03)
[2023-03-11] MEDS: ATORVASTATIN CALCIUM 40 MG TABLET PO (09:17)
[2023-03-11] MEDS: APIXABAN 5 MG TABLET PO ×2 (09:17→21:02)
[2023-03-11] MEDS: ASPIRIN 81 MG TABLET EC PO (09:17)
[2023-03-11] MEDS: BUSPIRONE 10 MG TABLET 30 MG PO ×2 (09:18→21:02)
[2023-03-11] MEDS: FLUTICASONE PROPIONATE NASAL 1 SPRAY NOSTRIL-B (09:18)
[2023-03-11] MEDS: LORATADINE 10 MG TABLET PO (09:19)
[2023-03-11] MEDS: GABAPENTIN 100 MG CAPSULE 400 MG PO ×3 (09:19→21:02)
[2023-03-11] MEDS: levETIRAcetam 500 MG TABLET PO ×2 (09:19→21:02)
[2023-03-11] MEDS: oxyBUTYnin chloride 5 MG TAB.ER.24 15 MG PO (09:20)
[2023-03-11] MEDS: OMEPRAZOLE 20 MG CAPSULE DR PO (09:20)
[2023-03-11] MEDS: ACETAMINOPHEN 325 MG TABLET PO ×2 (09:21→21:44)
[2023-03-11] MEDS: DOCUSATE SODIUM 100 MG CAPSULE PO (09:38)
--- NOTE | 2023-03-11 09:47 | PC.NURSE ---
PROJECT FINANCIAL ANALYST ATTEMPTED TO WEAN O2 TO 2 LPM O2 SAT WAS NOTED TO BE 97% ON 2 LPM THOUGH PATIENT'S O2 SAT DROPPED TO 86-87% ON 2 LPM. O2 WAS THEN INCREASED BACK TO 2.5 LPM.
[2023-03-11] MEDS: levoFLOXacin 500 MG TABLET PO (11:47)
--- NOTE | 2023-03-11 14:32 | PC.NURSE ---
NURSING STAFF ASSISTED PATIENT WITH PIVOT TRANSFER FROM RECLINER TO COMMODE THIS MORNING WITH PHYSICAL THERAPIST ALSO ASSISTING. PATIENT BECOMES FEARFUL WHEN STANDING AND REQUIRES MUCH ENCOURAGEMENT TO INSURANCE INSTRUCTOR ORDER TO PIVOT TRANSFER. PATIENT UNABLE TO SAFELY AMBULATE AT THIS TIME. CEILING LIFT HAS OTHERWISE BEEN REQUIRED FOR TRANSFERRING THROUGHOUT THE REST OF THE SHIFT TODAY. PATIENT HAS NOT HAD A BM THIS SHIFT THOUGH BOWEL SOUNDS NOTED TO BE ACTIVE IN ALL FOUR QUADRANTS WITH FLUIDS ENCOURAGED AND PRN COLACE GIVEN. NYSTATIN POWDER CONTINUES TO BE APPLIED TO REDDENED AREAS UNDER R BREAST AND UNDER ABDOMINAL/GROIN FOLDS AFTER CLEANSING AND PATTING DRY. INTERDRY ALSO PLACED. PATIENT ABLE TO EAT INDEPENDENTLY AFTER SETUP SHE FEEDS HERSELF WITH RIGHT HAND. SHE ATE 90% FOR BREAKFAST AND 75% FOR LUNCH. SHE IS DEPENDENT ON STAFF FOR TOILETING AND REPOSITIONING. 350 ML URINARY OUTPUT FROM [employer] CATHETER THIS SHIFT. URINE IS NOT NOTED TO BE VALERY IN COLOR THOUGH URINE IS NOT NOTED TO BE CONCENTRATED. LS HAVE BEEN CLEAR THROUGHOUT THE SHIFT.
--- NOTE | 2023-03-11 14:42 | PM.IMPN1 ---
Progress Note: A&P Assessment and plan (1) Fall: Problem details: - Multifactorial secondary to dizziness from low blood pressure, chronic weakness of the left arm and left leg from previous stroke, and possibly exacerbated by UTI and pneumonia. PT and OT evaluation and treatment. So far patient is requiring a lot of assistance for standing and transferring. Probably needs fdc facility Status: Acute (2) UTI (urinary tract infection): Problem details: To Gram-negative organisms on urine culture susceptible to quinolones. Treat with Levaquin Status: Acute (3) Pneumonia: Problem details: Possible right middle lobe pneumonia. Clinically I do not suspect pneumonia. Will treat her UTI and possible pneumonia with Levaquin Status: Acute (4) Poor social situation: Problem details: - consult SW. Current arrangements arm not meeting the patient's needs due to her immobility. There appears to be significant family issues. Concern about household and personal hygiene as well. Patient has initially requested fdc facility rehab. She has changed her mind on a few occasions. Currently agreeing to fdc facility placement Status: Acute (5) CVA (cerebral vascular accident): Problem details: - Ischemic embolic - Chronic left arm and some left leg weakness. Also chronic pain on the left Status: Chronic (6) Personality disorder: Problem details: - Cluster B traits - Her daughter and son tell me she will have favorites, and this changes frequently. She frequently withdraws. She refuses various cares and does best when spoken to in a quiet voice with good eye contact, not talked down to. Status: Chronic (7) Paroxysmal atrial fibrillation: Problem details: - She was on warfarin for anticoagulation, but was chronically supratherapeutic and warfarin was discontinued in late February 2023 with the intention of starting Eliquis instead. - She has not been on rate control. HR is mildly elevated, but regular and EKG shows NSR. Monitor on tele. Status: Chronic (8) Seizures: Problem details: - Continue home medications Status: Chronic (9) Morbid exogenous obesity: Problem details: - Checked HgbA1C and TSH, both unremarkable Status: Chronic (10) Hypoxia: Problem details: Chronic. Uncertain what baseline is. Also sleep apnea. Status: Acute (11) Anxiety disorder: Problem details: - Continue home medications Status: Chronic (12) Dementia with mood disturbance: Problem details: Unclear how much cognitive impairment is present. Ongoing assessment. Appears competent to make decisions. Status: Acute (13) Disability due to neurological disorder: Problem details: Patient is currently fairly severely disabled by left-sided weakness which is old but now recent history of subacute decline with inability to manage at home Status: Acute (14) Obstructive sleep apnea: Problem details: Not using CPAP. Have daughter bring in equipment to see if it is salvageable and fixable Status: Acute (15) Pharyngoesophageal dysphagia: Problem details: Bedside evaluation by speech therapy is reassuring. No need for current dietary modifications Status: Chronic (16) Bacteremia: Problem details: Blood culture positive for Staph epi. Likely contaminant. Stop vanco. Status: Acute Plan Continue in hospital pending safe discharge plan. Continue therapy and appropriate wound care. Time Spent With Patient Total time spent: Total time spent today is 60 minutes, 40 minutes in coordination of care and discussing with patient and other providers management of above medical problems and disposition Subjective Date Seen: 03/11/23 Interval history: Tatianna Stinson is a 62 year old female history of left arm and partial leg paresis secondary to a stroke in 2018 who lives at home with several generations, fell out of bed this morning. When EMS arrived, was reportedly covered in feces and the house was in shambles. Tatianna remembers trying to get out of bed using the bar that she has above her bed. She felt dizzy and ended up falling onto her left side. She has been feeling dizzy frequently lately for which she saw Dr. Damon just this past week. Her daughter, Harriet, took her to that visit. At that visit her blood pressure was low as it had been for several visits previously. Dr. Damon decreased her lisinopril from 20 to 5. She just started taking that dose 2 days ago. He also stopped warfarin because she had been supratherapeutic for several checks and she was going to start on Eliquis instead. Please also says that she has been feeling foggy or cloudy in the head lately. Her children have not noticed any changes in her mentation, but note that she sometimes forgets what day it is and her memory has been declining over months. Harriet works at [employer], and tries to check in on her mom as often as she can. Douglas calls her to talk with her, but because he lives in [place] has only been able to see her about once a year, and does have a visit scheduled in a few weeks. Harriet tells me that she has been working with Tatianna's field nurse case manager to get various things around the house fixed such as a tub. Tatianna has not been able to bathe in quite some time because the tub is not working and Tatianna often refuses care. Her children tell me that Tatianna will pick favorites for caregivers and if things are not done exactly as Tatianna wants, she will refuse cares altogether. Tatianna has been refusing to wear her home oxygen during the day. She will bleed it through her CPAP at night, but the mask is broken and so she just holds the hose near her mouth. Harriet tells me that this is what they were told to do until Harriet could get a new mask for it. Douglas is concerned that Tatianna has gained weight since she had a stroke in 2018 and her weight gain has made it difficult for her to move and so she has gotten weak. She is now using a wheelchair. Douglas also notes that Tatianna has had problems with incontinence of urine and he thinks that the mesh from her bladder repair many years ago is starting to give out. Since her stroke she has had chronic left shoulder pain and they have been told that this is likely from nerve damage from the stroke. In the last few days to weeks she has had increased frequency of urine, incontinence of urine although this is not new, and felt extra thirsty. All of them tell me that anxiety and depression have been a big problem and Tatianna has been working with a psychiatrist to adjust medications for insomnia. On admission she was identified as having a urinary tract infection and possible pneumonia and was started on ceftriaxone for this. Evaluation on admission shows that her hygiene is poor and nursing staff are able to provide some cleaning. She was found to have erythema and superficial ulcerations in multiple areas of skin folds including her left axilla under breasts under her abdominal pannus and in the inguinal folds. She denies fever or dyspnea but does report she has had some cough. She tells me today that she is able to walk with a 3 prong cane at home but when I see her today she is unable to roll over in bed or sit up without assistance. She is requiring heavy assist of 2 for repositioning. She lives at home with her , a daughter and her daughter's fiance and a grandchild. She tells me that she would like her daughter to move out of their house. Her daughter and family living with her was supposed to be a temporary arrangement but she is concerned it has become more permanent. Her daughter Harriet lives in [place] and is the healthcare power of tag clerk. Harriet also sets up her medications. Her son in [place] manages her finances Today she was able to stand holding onto a walker. On March 10 Nursing staff were still using a ceiling lift to transfer bed to chair. On March 11 she was able to stand and hold onto a walker to pivot transfer. One of her blood cultures is positive for Staph epidermidis. Her urine cultures are still pending showing 2 different Gram-negative rods, both susceptible to quinolones. She is observed to be hypoxic at night and is on supplemental oxygen. Oxygen was turned up to 3 L due to O2 sats in the low 80s. This morning her venous blood gas shows a pCO2 of 65. Her daughter was asked to bring in her CPAP to see if this can be fixed to address her sleep apnea Exam Narrative: Exam Narrative: She is alert and appears in no distress. Respirations are clear to auscultation. Cardiovascular: S1, S2, regular rhythm. Abdomen: Bowel sounds are active. Abdomen is soft with mild tenderness primarily on the left side today. No mass no peritonitis. She has tenderness with palpation anywhere on her low left upper or lower extremity. No marked edema redness or swelling. Const: Vital Signs, click to edit/add: Vital Signs - 24 hr 03/10/23 15:00 03/10/23 15:00 03/10/23 15:00 Temperature 98.7 F Pulse Rate 83 Pulse Rate [Pulse Oximeter] 83 Respiratory Rate 16 16 Blood Pressure [Ri t Arm] 121/62 Pulse Oximetry 95 95 Oxygen Delivery Me thod Nasal Cannula Nasal Cannula Oxygen Flow Rate 2 2 03/10/23 19:00 03/10/23 23:00 03/10/23 23:00 Temperature 98.4 F 98.3 F Pulse Rate Pulse Rate [Pulse Oximeter] 84 79 Respiratory Rate 16 19 19 Blood Pressure [Ri ght Arm] 123/54 L 108/56 L Pulse Oximetry 92 93 93 Oxygen Delivery Me thod Nasal Cannula Nasal Cannula Nasal Cannula Oxygen Flow Rate 1 2.5 2.5 03/10/23 23:00 03/11/23 03:00 03/11/23 07:00 Temperature 98.4 F Pulse Rate 81 87 Pulse Rate [Pulse Oximeter] 88 Respiratory Rate 22 Blood Pressure [Nv ght Arm] 121/59 L Pulse Oximetry 93 Oxygen Delivery Me thod Room Air Oxygen Flow Rate 03/11/23 07:58 03/11/23 07:59 03/11/23 11:00 Temperature 98.2 F 97.9 F Pulse Rate Pulse Rate [Pulse Oximeter] 86 78 Respiratory Rate 16 16 18 [facility] 98/66 105/60 Pulse Oximetry 97 97 92 Oxygen Delivery Me thod Nasal Cannula Nasal Cannula Nasal Cannula Oxygen Flow Rate 2 2 Documenting provider has reviewed patient's vital signs: yes Labs Labs: Laboratory Results - last 24 hr 03/11/23 06:07 WBC 5.67 RBC 4.34 Hgb 11.6 L Hct 39.6 MCV 91 MCH 27 MCHC 29 L RDW Coeff of Arturo 16.9 H Plt Count 226 Neut % (Auto) 68.9 Lymph % (Auto) 20.3 [place] % (Auto) 7.1 Eos % (Auto) 3.0 Baso % (Auto) 0.2 Neut # (Auto) 3.91 Lymph # (Auto) 1.15 [place] # (Auto) 0.40 Eos # (Auto) 0.17 Baso # (Auto) 0.01 Abs Immat Gran (auto) 0.03 Imm/Tot Granulo (auto) 0.5 INR 1.59 H VBG pH 7.312 L VBG pCO2 65 H* VBG pO2 35.2 VBG HCO3 33 H Sodium 141 Potassium 4.1 Chloride 104 Carbon Dioxide 30 Anion Gap 7 BUN 10 Creatinine 0.6 Estimated Creat Clear 48.87 Estimated GFR 102 Glucose 102 Calcium 8.7 C-Reactive Protein 5.8 H
--- NOTE | 2023-03-11 16:07 | ED.GENADULT ---
HPI - General Adult General Chief complaint: Hip Injury/Pain Stated complaint: Fall, hip pain Time Seen by Provider: 03/08/23 11:02 History of Present Illness HPI narrative: THIS NOTE IS AN ADDENDUM TO MY ER NOTE FROM 03/08/23 (the date of service for this patient). THIS NOTE INCLUDES THE DIAGNOSES/CLINICAL IMPRESSION (below) THAT WERE INADVERTENTLY OMITTED FROM MY ORIGINAL NOTE Related Data Home Medications Medication Instructions Recorded Confirmed albuterol sulfate 90 mcg/actuation 2 puff inhalation Q4H PRN 03/08/23 03/08/23 aerosol inhaler apixaban 5 mg tablet (Eliquis) 5 mg PO BID 03/08/23 03/08/23 aspirin 81 mg capsule 81 mg PO DAILY 03/08/23 03/08/23 atorvastatin 40 mg tablet 40 mg PO DAILY 03/08/23 03/08/23 buspirone 30 mg tablet 30 mg PO BID 03/08/23 03/08/23 escitalopram oxalate 20 mg tablet 20 mg PO DAILY 03/08/23 03/08/23 fluticasone propionate 50 1 spray intranasal DAILY 03/08/23 03/08/23 mcg/actuation nasal spray,suspension gabapentin 400 mg capsule 400 mg PO TID 03/08/23 03/08/23 lamotrigine 100 mg tablet 200 mg PO QPM 03/08/23 03/08/23 levetiracetam 500 mg tablet 500 mg PO BID 03/08/23 03/08/23 lisinopril 5 mg tablet 5 mg PO DAILY 03/08/23 03/08/23 loratadine 10 mg tablet (Claritin) 10 mg PO DAILY 03/08/23 03/08/23 melatonin 5 mg capsule 10 mg PO QPM 03/08/23 03/08/23 mirtazapine 30 mg tablet 30 mg PO QPM 03/08/23 03/08/23 omeprazole 20 mg capsule,delayed 20 mg PO DAILY 03/08/23 03/08/23 release oxybutynin chloride 15 mg 15 mg PO DAILY 03/08/23 03/08/23 tablet,extended release 24 hr trazodone 100 mg tablet 200 mg PO QPM 03/08/23 03/08/23 trazodone 50 mg tablet 25 mg PO DAILY PRN 03/08/23 03/08/23 Allergies Allergy/AdvReac Type Severity Reaction Status Date / Time Penicillins Allergy Intermediate Verified 03/08/23 10:42 venlafaxine [From Effexor] Allergy Mild Hives Verified 03/08/23 10:42 Venlafaxine Analogues Allergy Mild hives Verified 03/08/23 14:21 [facility] Medical History (Updated 03/11/23 @ 14:49 by Remington Angel MD) Obstructive sleep apnea ?G47.33 - Obstructive sleep apnea (adult) (pediatric) (ICD-10) Disability due to neurological disorder ?R29.818 - Other symptoms and signs involving the nervous system (ICD-10) Pap smear for cervical cancer screening ?Z12.4 - Encounter for screening for malignant neoplasm of cervix (ICD-10) Morbid exogenous obesity ?E66.01 - Morbid (severe) obesity due to excess calories (ICD-10) Dementia with mood disturbance ?F03.93 - Unspecified dementia, unspecified severity, with mood disturbance (ICD-10) Seizures ?R56.9 - Unspecified convulsions (ICD-10) Paroxysmal atrial fibrillation ?I48.0 - Paroxysmal atrial fibrillation (ICD-10) Sensorineural hearing loss of both ears ?H90.3 - Sensorineural hearing loss, bilateral (ICD-10) Insomnia ?G47.00 - Insomnia, unspecified (ICD-10) Personality disorder ?F60.9 - Personality disorder, unspecified (ICD-10) Pharyngoesophageal dysphagia (~07/2017) ?R13.14 - Dysphagia, pharyngoesophageal phase (ICD-10) Pain medication agreement ?Z02.89 - Encounter for other administrative examinations (ICD-10) Hemiplegia ?G81.90 - Hemiplegia, unspecified affecting unspecified side (ICD-10) Anxiety disorder ?F41.9 - Anxiety disorder, unspecified (ICD-10) Severe episode of recurrent major depressive disorder, without psychotic features ?F33.2 - Major depressive disorder, recurrent severe without psychotic features (ICD-10) Hyperplastic colon polyp (~06/2012) ?K63.5 - Polyp of colon (ICD-10) Essential hypertension ?I10 - Essential (primary) hypertension (ICD-10) GERD (gastroesophageal reflux disease) ?K21.9 - Gastro-esophageal reflux disease without esophagitis (ICD-10) Nonunion of joint fusion Tobacco dependency ?F17.200 - Nicotine dependence, unspecified, uncomplicated (ICD-10) Hypercholesteremia ?E78.00 - Pure hypercholesterolemia, unspecified (ICD-10) CVA (cerebral vascular accident) (~09/2020) ?I63.9 - Cerebral infarction, unspecified (ICD-10) Surgical History (Updated 03/08/23 @ 18:51 by Diane Colvin MD) History of tubal ligation (~1988) ?Z98.51 - Tubal ligation status (ICD-10) Hx of tonsillectomy (~1969) ?Z90.89 - Acquired absence of other organs (ICD-10) H/O foot surgery (~09/15/12) ?Z98.890 - Other specified postprocedural states (ICD-10) History of axillary surgery (~11/08/10) ?Z98.890 - Other specified postprocedural states (ICD-10) Status post right foot surgery (~01/23/10) ?Z98.890 - Other specified postprocedural states (ICD-10) History of lumbar laminectomy (~1997) ?Z98.890 - Other specified postprocedural states (ICD-10) History of total knee arthroplasty ?Z96.659 - Presence of unspecified artificial knee joint (ICD-10) History of section ?Z98.891 - History of uterine scar from previous surgery (ICD-10) History of carpal tunnel release (~2010) ?Z98.890 - Other specified postprocedural states (ICD-10) History of bunionectomy (~2005) ?Z98.890 - Other specified postprocedural states (ICD-10) H/O bladder repair surgery ?Z98.890 - Other specified postprocedural states (ICD-10) H/O arthroscopy (~03/07/15) ?Z98.890 - Other specified postprocedural states (ICD-10) H/O esophagogastroduodenoscopy ?Z98.890 - Other specified postprocedural states (ICD-10) Hx of colonoscopy ?Z98.890 - Other specified postprocedural states (ICD-10) Family History (Updated 03/08/23 @ 18:55 by Diane Colvin MD) Brother Alcohol dependence Sister Alcohol dependence Brother Cancer Father Lymphoma Mother Lung cancer Diabetes Aunt Breast cancer Maternal Grandmother Breast cancer Brother Myocardial infarction, Onset Age: 47 Aunt Heart disease Uncle Heart disease Social History (Updated 03/08/23 @ 20:44 by Diane Colvin MD) Narrative: Lives with , 1 daughter and her son and his fiancee. She has smoked 1 pack of cigarettes per day for 30 years. She denies alcohol use. She tried some THC gummies earlier this month for sleeping, but they did not do anything, so she stopped them, and she says that was the only time she has ever used recreational drugs. What is your current living situation?: I presently have a place to live Problems where you live: no known problems Problems where you live details: n/a In the past 12 months, utilities in danger of being shut off: no In past 12 months, lack of transportation kept you from medical appts, meetings, work, or getting things needed for daily living: no In the past 12 mos, have been you worried that your food would run out before you had money to buy more?: never true In the past 12 mos, the food you bought just didn't last and you didn't have money to buy more?: never true Do you use any of these nicotine containing products: None Second hand tobacco smoke exposure: No How often do you have a drink containing alcohol: never How often do you have six or more drinks on one occasion: Never AUDIT-C Alcohol total score: 0 Caffeine: Yes (Soda) How often does anyone, including family, friends and others, physically hurt you: rarely How often does anyone, including family, friends and others, insult or talk down to you: frequently How often does anyone, including family, friends and others, threaten you with harm: rarely How often does anyone, including family, friends and others, scream or curse at you: rarely Course Vital Signs Vital signs: Initial Vital Signs Pulse Rate 106 H 03/08/23 10:20 Respiratory Rate 18 03/08/23 10:20 Respiratory Effort Normal, Spontaneous 03/08/23 10:20 Respiratory Depth Normal 03/08/23 10:20 Respiratory Pattern Normal 03/08/23 10:20 Blood Pressure 112/59 L 03/08/23 10:20 Blood Pressure Mean 76 03/08/23 10:20 Blood Pressure Position Supine 03/08/23 10:20 Pulse Oximetry 88 03/08/23 10:20 Oxygen Delivery Method Room Air 03/08/23 10:20 Vital Signs Pulse Rate 106 H 03/08/23 10:20 Respiratory Rate 18 03/08/23 10:20 Blood Pressure 112/59 L 03/08/23 10:20 Pulse Oximetry 88 03/08/23 10:20 Oxygen Delivery Method Room Air 03/08/23 10:20 Temperature 96.5 F L 03/11/23 15:00 Pulse Rate 77 03/11/23 15:00 Respiratory Rate 12 03/11/23 15:00 Blood Pressure 113/53 L 03/11/23 15:00 Pulse Oximetry 92 03/11/23 15:00 Oxygen Delivery Method Nasal Cannula 03/11/23 15:00 Oxygen Flow Rate 2 03/11/23 15:00 Medical Decision Making Lab Data Labs: Lab Results 03/08/23 03/08/23 03/08/23 Range/Units 11:15 11:33 11:40 WBC 6.80 (4.50-11.00) K/uL RBC 4.40 (4.00-5.20) m/uL Hgb 11.9 L (12.0-16.0) gm/dL Hct 39.6 (33.0-51.0) % MCV 90 (80-100) fL MCH 27 (26-34) pg MCHC 30 L (32-36) gm/dL RDW Coeff of Arturo 17.0 H (11.5-15.5) % Plt Count 223 (140-440) K/uL Neut % (Auto) 80.0 H (42.0-72.0) % Lymph % (Auto) 9.9 L (20-44) % [place] % (Auto) 8.7 (0.0-11.0) % Eos % (Auto) 1.2 (0.0-7.0) % Baso % (Auto) 0.1 (0.0-3.0) % Neut # (Auto) 5.40 (1.7-7.0) K/uL Lymph # (Auto) 0.70 L (0.90-2.90) K/uL [place] # (Auto) 0.60 (0.00-0.90) K/UL Eos # (Auto) 0.08 (0.00-0.50) K/uL Baso # (Auto) 0.01 (0.00-0.30) K/uL Abs Immat Gran (auto) 0.01 (0.00-0.30) K/uL Imm/Tot Granulo (auto) 0.1 % Diff Slide Review (Acceptable) INR 2.62 H (0.91-1.10) Sodium 135 (135-149) mmol/L Potassium 5.1 (3.6-5.1) mmol/L Chloride 100 (96-114) mmol/L Carbon Dioxide 24 (20-32) mmol/L Anion Gap 11 (7-15) mEq/L BUN 26 (7-30) mg/dL Creatinine 0.9 (0.5-1.5) mg/dL Estimated Creat Clear 55.31 Estimated GFR 73 ml/min Glucose 105 (60-115) mg/dL Hemoglobin A1c 5.51 (0-5.6) % Lactate 2.3 H (0.5-1.9) mmol/L Calcium 8.9 (8.4-10.6) mg/dL Total Bilirubin 0.9 (0.1-1.5) mg/dL AST 51 H (12-35) U/L ALT 21 (4-35) U/L Alkaline Phosphatase 109 (40-150) U/L Troponin I < 0.01 L (0.01-0.04) ng/mL Total Protein 6.7 (6.0-8.3) g/dL Albumin 3.7 (3.3-5.0) g/dL TSH 2.970 (0.270-4.20) uIU/mL Urine Color (Yellow) Urine Appearance (Clear) Urine pH (5.0-8.5) Ur Specific [place] (1.000-1.030) Urine Protein (Negative) Urine Glucose (UA) (Negative) Urine Ketones (Negative) Urine Blood (Negative) Urine Nitrite (Negative) Urine Bilirubin (Negative) Urine Urobilinogen (0.2-1.0) Ur Leukocyte Esterase (Negative) Urine RBC (0-2) Urine WBC (0-5) Ur Squamous Epith Cells (None-Few) Urine Bacteria (None) SARS-CoV-2 (PCR) Negative SARS-CoV-2 (Negative) Influenza Type A (PCR) Negative PCR FLU A (Negative) Influenza Type B (PCR) Negative PCR FLU B (Negative) RSV (PCR) Negative PCR RSV (Negative) Lab Acknowledgement 03/08/23 03/08/23 03/09/23 Range/Units 12:10 20:31 09:46 WBC 5.50 (4.50-11.00) K/uL RBC 3.90 L (4.00-5.20) m/uL Hgb 10.6 L (12.0-16.0) gm/dL Hct 35.5 (33.0-51.0) % MCV 91 (80-100) fL MCH 27 (26-34) pg MCHC 30 L (32-36) gm/dL RDW Coeff of Arturo 16.9 H (11.5-15.5) % Plt Count 209 (140-440) K/uL Neut % (Auto) 72.3 H (42.0-72.0) % Lymph % (Auto) 18.9 L (20-44) % [place] % (Auto) 7.1 (0.0-11.0) % Eos % (Auto) 1.5 (0.0-7.0) % Baso % (Auto) 0.0 (0.0-3.0) % Neut # (Auto) 4.00 (1.7-7.0) K/uL Lymph # (Auto) 1.00 (0.90-2.90) K/uL [place] # (Auto) 0.40 (0.00-0.90) K/UL Eos # (Auto) 0.08 (0.00-0.50) K/uL Baso # (Auto) 0.00 (0.00-0.30) K/uL Abs Immat Gran (auto) 0.01 (0.00-0.30) K/uL Imm/Tot Granulo (auto) 0.2 % Diff Slide Review Acceptable Review (Acceptable) INR 2.31 H (0.91-1.10) Sodium 137 (135-149) mmol/L Potassium 4.2 (3.6-5.1) mmol/L Chloride 101 (96-114) mmol/L Carbon Dioxide 29 (20-32) mmol/L Anion Gap 7 (7-15) mEq/L BUN 15 (7-30) mg/dL Creatinine 0.7 (0.5-1.5) mg/dL Estimated Creat Clear 48.87 Estimated GFR 98 ml/min Glucose 110 (60-115) mg/dL Hemoglobin A1c (0-5.6) % Lactate (0.5-1.9) mmol/L Calcium 8.7 (8.4-10.6) mg/dL Total Bilirubin (0.1-1.5) mg/dL AST (12-35) U/L ALT (4-35) U/L Alkaline Phosphatase (40-150) U/L Troponin I (0.01-0.04) ng/mL Total Protein (6.0-8.3) g/dL Albumin (3.3-5.0) g/dL TSH 3.250 (0.270-4.20) uIU/mL Urine Color Dark yellow (Yellow) Urine Appearance Cloudy A (Clear) Urine pH 7.0 (5.0-8.5) Ur Specific [place] 1.025 (1.000-1.030) Urine Protein 2+ A (Negative) Urine Glucose (UA) Negative (Negative) Urine Ketones Trace A (Negative) Urine Blood 3+ A (Negative) Urine Nitrite Positive A (Negative) Urine Bilirubin Negative (Negative) Urine Urobilinogen 0.2 (0.2-1.0) Ur Leukocyte Esterase 3+ A (Negative) Urine RBC >100 A (0-2) Urine WBC >100 A (0-5) Ur Squamous Epith Cells None (None-Few) Urine Bacteria Many A (None) SARS-CoV-2 (PCR) (Negative) Influenza Type A (PCR) (Negative) Influenza Type B (PCR) (Negative) RSV (PCR) (Negative) Lab Acknowledgement Test Added Discharge Plan Discharge Clinical Impression: Acute shoulder pain, UTI (urinary tract infection), Hemiparesis affecting left side as late effect of cerebrovascular accident, Contusion of hip, Hypoxia, Pneumonia, Fall Patient Disposition: Admitted As Observation
--- NOTE | 2023-03-11 16:19 | PC.SOCIAL ---
Addendum entered by ELSA Lobato 03/12/23 14:00: Received calls back from [facility] and [facility], stating they are declining pt for admit. baby formula worker to continue to look for placement. Original Note: Discharge planning: Met with pt in room and she conference called her son Douglas to participate in the conversation. Pt is requesting short term rehab placement in a chcf facility. Her goal is to get stronger so that she can move to [place] near her son, Douglas. Pt is not interested in alf placement in a half-way and does not want to discuss this at all. Provided pt and son with list of chcf facilities with their department of health ratings. Son and pt are not interested in placement at [facility] [place] but are interested in any other facilities nearby who can meet pt's needs, including her weight of 323 pounds. Son requested social worker delinquency prevention try [facility], [facility] and [facility]. baby formula worker contacted the following facilities with the listed results: 1. [facility] - declined pt, as weight is over their weight limit. 2. [facility] - sent information for evaluation and awaiting decision on admit. 3. [facility] - sent information for evaluation and awaiting decision on admit. 4. [facility] in [place] - declined pt due to not having available bariatric bed. 5. [facility] - declined pt due to not having available bariatric bed. baby formula worker to follow up as needed.
[2023-03-11] MEDS: MIRTAZAPINE 15 MG TABLET 30 MG PO (17:35)
[2023-03-11] MEDS: TRAZODONE HCL 50 MG TABLET 200 MG PO (17:35)
[2023-03-11] MEDS: lamoTRIgine 100 MG TABLET 200 MG PO (17:36)
[2023-03-11] MEDS: MELATONIN 3 MG TABLET 9 MG PO (21:02)
--- NOTE | 2023-03-11 22:58 | PC.NURSE ---
CPAP was checked by RT and cleaned by RN per RT recommendation. Patient compliant with CPAP use, O2 sat 88-89 while in use. Afebrile, no cough noted. Patient complaint of 10/10 pain in lower leg, interventions per MAR with improvement. Patient resting comfortably at end of shift.
[2023-03-11] MEDS: fentaNYL 100 MCG/2 ML inj 25 MCG IVP (23:52)
[2023-03-12] VITALS (8 sets, daily range): BP systolic 94–122; BP diastolic 42–70; PULSE 73–83; RESP 16–22; TEMP 36.6–36.9; O2SAT 90–96
--- NOTE | 2023-03-12 06:44 | PC.NURSE ---
Patient reporting pain to low back, assisted with repositioning per patient request with no relief of pain. Patient requesting medication due to increase back pain, prn utilized with effective results. CPAP utilized until 0000 when patient's O2 sats decreased to 82%, pattern chart writer attempted changing pulse oximeter to different fingers and new pulse oximeter utilized without change in O2 sats, CPAP removed and and O2 applied at 2L, patient has maintained sats >90% while on oxygen. Denies any shortness of breath or dyspnea. Kelley catheter patent, draining tea colored urine.
[2023-03-12 06:50] LABS: Eosinophils Percent Auto 3.4 % (0.0-7.0); Hematocrit 30.7 % (33.0-51.0); Hemoglobin* 9.1 gm/dL (12.0-16.0); Immature Granulocytes Pct Auto 0.9 %; Lymphocytes Percent Auto 24.5 % (20-44); Mean Corpuscular HGB Conc 30 gm/dL (32-36); Mean Corpuscular Hemoglobin 27 pg (26-34); Mean Corpuscular Volume 91 fL (80-100); Monocytes Percent Auto 8.8 % (0.0-11.0); Neutrophils Percent Auto 62.4 % (42.0-72.0); Platelet Count* 190 K/uL (140-440); Red Blood Count 3.37 m/uL (4.00-5.20); White Blood Count* 4.45 K/uL (4.50-11.00)
[2023-03-12 07:07] LABS: Chloride* 103 mmol/L (96-114); Potassium* 3.7 mmol/L (3.6-5.1); Sodium* 138 mmol/L (135-149)
[2023-03-12 07:10] LABS: Creatinine* 0.6 mg/dL (0.5-1.5); Est. Creatinine Clearance* 48.87; Estimated Glomerular Filt Rate 102 ml/min
[2023-03-12 07:11] LABS: Anion Gap 6 mEq/L (7-15); Blood Urea Nitrogen* 11 mg/dL (7-30); Calcium* 8.3 mg/dL (8.4-10.6); Carbon Dioxide* 29 mmol/L (20-32); Glucose* 88 mg/dL (60-115)
[2023-03-12 07:12] LABS: Slide Review Reflex No
[2023-03-12 07:14] LABS: C Reactive Protein* 3.9 mg/dL (0.5-1.0)
[2023-03-12] MEDS: ACETAMINOPHEN 325 MG TABLET PO ×2 (08:42→20:33)
[2023-03-12] MEDS: DOCUSATE SODIUM 100 MG CAPSULE PO (08:42)
[2023-03-12] MEDS: FLUTICASONE PROPIONATE NASAL 1 SPRAY NOSTRIL-B (08:47)
[2023-03-12] MEDS: oxyBUTYnin chloride 5 MG TAB.ER.24 15 MG PO (08:49)
[2023-03-12] MEDS: LORATADINE 10 MG TABLET PO (08:49)
[2023-03-12] MEDS: OMEPRAZOLE 20 MG CAPSULE DR PO (08:49)
[2023-03-12] MEDS: GABAPENTIN 100 MG CAPSULE 400 MG PO ×3 (08:49→20:32)
[2023-03-12] MEDS: ATORVASTATIN CALCIUM 40 MG TABLET PO (08:50)
[2023-03-12] MEDS: levoFLOXacin 500 MG TABLET PO (08:50)
[2023-03-12] MEDS: ASPIRIN 81 MG TABLET EC PO (08:50)
[2023-03-12] MEDS: APIXABAN 5 MG TABLET PO ×2 (08:50→20:33)
[2023-03-12] MEDS: BUSPIRONE 10 MG TABLET 30 MG PO ×2 (08:50→20:33)
[2023-03-12] MEDS: SODIUM CHLORIDE 0.9 % (FLUSH) 10 ML SYRINGE 5 ML IVF ×2 (08:51→20:40)
[2023-03-12] MEDS: levETIRAcetam 500 MG TABLET PO ×2 (09:03→20:33)
[2023-03-12] MEDS: ONDANSETRON 2 MG/ML inj 4 MG IVP (12:52)
[2023-03-12] MEDS: SENNOSIDES 1 TAB TABLET 2 TAB PO ×2 (12:53→20:33)
[2023-03-12] MEDS: NYSTATIN POWDER 1 APPLIC TOPICAL (12:53)
[2023-03-12] MEDS: polyethylene glycoL 3350 17 GM PACK PO (12:54)
--- NOTE | 2023-03-12 14:01 | PC.SOCIAL ---
Addendum entered by ELSA Lobato 03/12/23 15:17: Received call back from [facility] stating they do not have any bariatric availability. Called these additional facilities with the listed results: 11. [facility] in [place]-Currently no available bariatric bed. 12. [facility] in [place] - Currently no available bariatric bed. 13. [facility] in [place] - Currently no available bariatric bed. fishing worker to follow up as needed. Original Note: Discharge planning: Emailed list of bariatric assisted facilities and update on facilities already declining pt to her son, Douglas and requested a new list of facilities to try for placement. Son is aware, child protective services social worker will continue to contact facilities in order of how near they are to [place] unless he requests a different plan. Called the following facilities with the listed results: 1. [facility] - Left message requesting call back if interested in receiving referral packet on this patient. 2. [facility] in [place] - Left message requesting call back if interested in receiving referral packet on this patient. 3. [facility] - [phone] - faxed information and awaiting call back with decision on admit. 4. [facility] - Left message requesting call back if interested in receiving referral packet on this patient. 5. [facility] in [place] - Left message requesting call back if interested in receiving referral packet on this patient. 6. [facility] in [place] - [phone] Faxed information and awaiting call back with decision on admit. 7. [facility] - Left message requesting call back if interested in receiving referral packet on this patient. 8. [facility] - Left message requesting call back if interested in receiving referral packet on this patient. 9 [facility] in [place] - Left message requesting call back if interested in receiving referral packet on this patient. 10. [facility] in [place] - Left message requesting call back if interested in receiving referral packet on this patient. fishing worker to follow up as needed.
--- NOTE | 2023-03-12 14:44 | PC.NURSE ---
RN spoke to Familia special education case manager for [facility] via phone. Adult Protection case has been opened. Disposition of this patient is still undecided. Field Technical Specialist given Familia's number for d/c planning on this patient. Please see eMar for medications provided. Tele indicates NSR. Report will be given to oncoming shift RN.
--- NOTE | 2023-03-12 15:46 | P.IMPN_ITS ---
Progress Note: A&P Assessment and plan (1) Fall: Problem details: - Multifactorial secondary to dizziness from low blood pressure, chronic weakness of the left arm and left leg from previous stroke, and possibly exacerbated by UTI and pneumonia. PT and OT evaluation and treatment. So far patient is requiring a lot of assistance for standing and transferring. Probably needs residential facility Status: Acute (2) UTI (urinary tract infection): Problem details: Proteus mirabilis and E coli on urine culture susceptible to quinolones. Treat with Levaquin Status: Acute (3) Pneumonia: Problem details: Possible right middle lobe pneumonia. Clinically I do not suspect pneumonia. Will treat her UTI and possible pneumonia with Levaquin Status: Acute (4) Poor social situation: Problem details: - consult SW. Current arrangements arm not meeting the patient's needs due to her immobility. There appears to be significant family issues. Concern about household and personal hygiene as well. Patient has initially requested residential facility rehab. She has changed her mind on a few occasions. Currently agreeing to residential facility placement Status: Acute (5) CVA (cerebral vascular accident): Problem details: - Ischemic embolic - Chronic left arm and some left leg weakness. Also chronic pain on the left Status: Chronic (6) Personality disorder: Problem details: - Cluster B traits - Her daughter and son tell me she will have favorites, and this changes frequently. She frequently withdraws. She refuses various cares and does best when spoken to in a quiet voice with good eye contact, not talked down to. Status: Chronic (7) Paroxysmal atrial fibrillation: Problem details: - She was on warfarin for anticoagulation, but was chronically supratherapeutic and warfarin was discontinued in late February 2023 with the intention of starting Eliquis instead. - She has not been on rate control. HR is mildly elevated, but regular and EKG shows NSR. Monitor on tele. Status: Chronic (8) Seizures: Problem details: - Continue home medications Status: Chronic (9) Morbid exogenous obesity: Problem details: - Checked HgbA1C and TSH, both unremarkable Status: Chronic (10) Hypoxia: Problem details: Chronic. Uncertain what baseline is. Also sleep apnea. Status: Acute (11) Anxiety disorder: Problem details: - Continue home medications Status: Chronic (12) Dementia with mood disturbance: Problem details: Unclear how much cognitive impairment is present. Ongoing assessment. Appears competent to make decisions. Status: Acute (13) Disability due to neurological disorder: Problem details: Patient is currently fairly severely disabled by left-sided weakness which is old but now recent history of subacute decline with inability to manage at home Status: Acute (14) Obstructive sleep apnea: Problem details: Not using CPAP. Have daughter bring in equipment to see if it is salvageable and fixable Status: Acute (15) Pharyngoesophageal dysphagia: Problem details: Bedside evaluation by speech therapy is reassuring. No need for current dietary modifications Status: Chronic (16) Bacteremia: Problem details: Blood culture positive for Staph epi. Likely contaminant. Stop vanco. Status: Acute (17) Discharge planning issues: Problem details: Patient would like to be home with family caring for her. It is not clear that this plan will work for her. Look into alternatives. Status: Acute Plan Continue in hospital pending safe discharge plan. Addressed constipation more aggressively today. Continue work with therapies to improve functional status. Time Spent With Patient Total time spent: Total time spent today is 40 minutes, 30 minutes in coordination care discussing with patient other providers ongoing evaluation management of disabilities and disposition Subjective Date Seen: 03/12/23 Interval history: Tatianna Stinson is a 62 year old female history of left arm and partial leg paresis secondary to a stroke in 2018 who lives at home with several generations, fell out of bed this morning. When EMS arrived, was reportedly covered in feces and the house was in shambles. Tatianna remembers trying to get out of bed using the bar that she has above her bed. She felt dizzy and ended up falling onto her left side. She has been feeling dizzy frequently lately for which she saw Dr. Damon just this past week. Her daughter, Harriet, took her to that visit. At that visit her blood pressure was low as it had been for several visits previously. Dr. Damon decreased her lisinopril from 20 to 5. She just started taking that dose 2 days ago. He also stopped warfarin because she had been supratherapeutic for several checks and she was going to start on Eliquis instead. Please also says that she has been feeling foggy or cloudy in the head lately. Her children have not noticed any changes in her mentation, but note that she sometimes forgets what day it is and her memory has been declining over months. Harriet works at [employer], and tries to check in on her mom as often as she can. Douglas calls her to talk with her, but because he lives in [place] has only been able to see her about once a year, and does have a visit scheduled in a few weeks. Harriet tells me that she has been working with Tatianna's field nurse case manager to get various things around the house fixed such as a tub. Tatianna has not been able to bathe in quite some time because the tub is not working and Tatianna often refuses care. Her children tell me that Tatianna will pick favorites for caregivers and if things are not done exactly as Tatianna wants, she will refuse cares altogether. Tatianna has been refusing to wear her home oxygen during the day. She will bleed it through her CPAP at night, but the mask is broken and so she just holds the hose near her mouth. Harriet tells me that this is what they were told to do until Harriet could get a new mask for it. Douglas is concerned that Tatianna has gained weight since she had a stroke in 2018 and her weight gain has made it difficult for her to move and so she has gotten weak. She is now using a wheelchair. Douglas also notes that Tatianna has had problems with incontinence of urine and he thinks that the mesh from her bladder repair many years ago is starting to give out. Since her stroke she has had chronic left shoulder pain and they have been told that this is likely from nerve damage from the stroke. In the last few days to weeks she has had increased frequency of urine, incontinence of urine although this is not new, and felt extra thirsty. All of them tell me that anxiety and depression have been a big problem and Tatianna has been working with a psychiatrist to adjust medications for insomnia. On admission she was identified as having a urinary tract infection and possible pneumonia and was started on ceftriaxone for this. Evaluation on admission shows that her hygiene is poor and nursing staff are able to provide some cleaning. She was found to have erythema and superficial ulcerations in multiple areas of skin folds including her left axilla under breasts under her abdominal pannus and in the inguinal folds. She denies fever or dyspnea but does report she has had some cough. She tells me today that she is able to walk with a 3 prong cane at home but when I see her today she is unable to roll over in bed or sit up without assistance. She is requiring heavy assist of 2 for repositioning. She lives at home with her , a daughter and her daughter's fiance and a grandchild. She tells me that she would like her daughter to move out of their house. Her daughter and family living with her was supposed to be a temporary arrangement but she is concerned it has become more permanent. Her daughter Harriet lives in [place] and is the healthcare power of associate attorney. Harriet also sets up her medications. Her son in [place] manages her finances On March 10 Nursing staff were still using a ceiling lift to transfer bed to chair. On March 11 she was able to stand and hold onto a walker to pivot transfer. One of her blood cultures is positive for Staph epidermidis. Her urine cultures are still pending showing 2 different Gram-negative rods, both susceptible to quinolones. She is observed to be hypoxic at night and is on supplemental oxygen. Oxygen was turned up to 3 L due to O2 sats in the low 80s. This morning her venous blood gas shows a pCO2 of 65. Her daughter was asked to bring in her CPAP to see if this can be fixed to address her sleep apnea. She reports some abdominal discomfort today. She has not had a bowel movement since admission. She reports a decreased appetite as well. No fever. Exam Narrative: Exam Narrative: She is alert, tired appearing but otherwise in no distress. Respirations are clear to auscultation. Cardiovascular: S1, S2, relatively regular rhythm. Abdomen: Bowel sounds are present. Abdomen is soft. She has mild diffuse low abdominal tenderness. Skin under the abdominal pannus as mild chronic induration better khan is unchanged without new ulcerations. Extremities with trace edema. She has good peripheral perfusion and good peripheral pulses. Const: Vital Signs, click to edit/add: Vital Signs - 24 hr 03/11/23 19:00 03/11/23 23:00 03/11/23 23:00 Temperature 98.6 F 98.9 F Pulse Rate Pulse Rate [Pulse Oximeter] 94 82 Respiratory Rate 20 18 Blood Pressure [Ri ght Arm] 109/52 L 127/67 Pulse Oximetry 94 92 92 Oxygen Delivery Me thod Nasal Cannula Nasal Cannula Room Air Oxygen Flow Rate 2 2 03/11/23 23:00 03/12/23 03:00 03/12/23 07:26 Temperature 97.9 F Pulse Rate 84 74 Pulse Rate [Pulse Oximeter] 83 Respiratory Rate 22 Blood Pressure [Nh ght Arm] 118/52 L Pulse Oximetry 96 Oxygen Delivery Me thod Nasal Cannula Oxygen Flow Rate 2 03/12/23 08:30 03/12/23 08:30 03/12/23 11:00 Temperature 98.5 F 97.9 F Pulse Rate Pulse Rate [Pulse Oximeter] 80 77 Respiratory Rate 20 16 20 Blood Pressure [Nh ght Arm] 122/42 L 94/70 Pulse Oximetry 95 95 96 Oxygen Delivery Me thod Nasal Cannula Nasal Cannula Room Air Oxygen Flow Rate 2 2 Documenting provider has reviewed patient's vital signs: yes Labs Labs: Laboratory Results - last 24 hr 03/12/23 06:27 WBC 4.45 L RBC 3.37 L Hgb 9.1 L Hct 30.7 L MCV 91 MCH 27 MCHC 30 L RDW Coeff of Arturo 17.0 H Plt Count 190 Neut % (Auto) 62.4 Lymph % (Auto) 24.5 Crosby % (Auto) 8.8 Eos % (Auto) 3.4 Baso % (Auto) 0.0 Neut # (Auto) 2.80 Lymph # (Auto) 1.10 Crosby # (Auto) 0.40 Eos # (Auto) 0.20 Baso # (Auto) 0.00 Abs Immat Gran (auto) 0.00 Imm/Tot Granulo (auto) 0.9 Sodium 138 Potassium 3.7 Chloride 103 Carbon Dioxide 29 Anion Gap 6 L BUN 11 Creatinine 0.6 Estimated Creat Clear 48.87 Estimated GFR 102 Glucose 88 Calcium 8.3 L C-Reactive Protein 3.9 H
--- NOTE | 2023-03-12 18:24 | PC.NURSE ---
End of shift. pt has been pleasant. he is on the call light alot. Pt is alert x4 no pain this shift, except of valentina cares. Kelley was d/c per PA order. it was leaking. 3 times pt had leaked urine around the Kelley. Pt is 2-3 cares and 2 assist with ceiling lift. Q2-3 Hours, reposition in bed. pt has some mild nausea with movement, no emesis, , no nausea hen laying still. tolerating regular diet. she is a fall risk and alarms are on. he has a brief on. alejandro wraps to her legs. SL is patent. while cleaning her CPA I did find 8 more flies int he water chamber that connects to the C-PAP this was along with the 8 other flies that I found in the water container. pt still says she uses her Cpap every day. the whole machine was wiped, tubbing was washed and ceased. her left side she cant not move and needs to be protected when moving it.
[2023-03-12] MEDS: MIRTAZAPINE 15 MG TABLET 30 MG PO (18:42)
[2023-03-12] MEDS: TRAZODONE HCL 50 MG TABLET 200 MG PO (18:42)
[2023-03-12] MEDS: lamoTRIgine 100 MG TABLET 200 MG PO (18:43)
[2023-03-12] MEDS: MELATONIN 3 MG TABLET 9 MG PO (20:32)
[2023-03-13 03:00] VITALS: BP 113/53; PULSE 78; RESP 18; TEMP 36.6; O2SAT 89
[2023-03-13 06:32] LABS: Eosinophils Percent Auto 4.7 % (0.0-7.0); Hematocrit 30.7 % (33.0-51.0); Hemoglobin* 9.2 gm/dL (12.0-16.0); Immature Granulocytes Pct Auto 0.2 %; Lymphocytes Percent Auto 27.1 % (20-44); Mean Corpuscular HGB Conc 30 gm/dL (32-36); Mean Corpuscular Hemoglobin 27 pg (26-34); Mean Corpuscular Volume 91 fL (80-100); Monocytes Percent Auto 9.2 % (0.0-11.0); Neutrophils Percent Auto 58.8 % (42.0-72.0); Platelet Count* 203 K/uL (140-440); RDW Coefficient of Variation % 16.9 % (11.5-15.5); Red Blood Count 3.37 m/uL (4.00-5.20); White Blood Count* 4.47 K/uL (4.50-11.00)
[2023-03-13 06:50] LABS: Slide Review Reflex No
--- NOTE | 2023-03-13 06:57 | PC.NURSE ---
SHIFT NOTE -: Pt A&O, consistently on the call light until around 0300 when the pt appeared to start resting comfortably. Pt turned and repositioned with a heavy 2 assist, incontinent of urine, valentina care provided. Pt reported back pain around 0200, MD updated and order received, but pt pain improved with repositioning and denied needing PRN. CPAP on at HS with O2 sats in the upper 80's to low 90's. Pt denies N/V, CP, and SOB.
[2023-03-13 07:00] VITALS: O2SAT 94
[2023-03-13 07:43] LABS: Chloride* 102 mmol/L (96-114)
[2023-03-13 07:44] LABS: Potassium* 3.7 mmol/L (3.6-5.1); Sodium* 138 mmol/L (135-149)
[2023-03-13 07:46] LABS: Creatinine* 0.6 mg/dL (0.5-1.5); Est. Creatinine Clearance* 48.87; Estimated Glomerular Filt Rate 102 ml/min
[2023-03-13 07:47] LABS: Anion Gap 6 mEq/L (7-15); Blood Urea Nitrogen* 12 mg/dL (7-30); Carbon Dioxide* 30 mmol/L (20-32); Glucose* 88 mg/dL (60-115)
[2023-03-13 07:48] LABS: Calcium* 8.4 mg/dL (8.4-10.6)
[2023-03-13 07:50] LABS: C Reactive Protein* 3.2 mg/dL (0.5-1.0)
[2023-03-13] MEDS: ASPIRIN 81 MG TABLET EC PO (08:42)
[2023-03-13] MEDS: BUSPIRONE 10 MG TABLET 30 MG PO ×2 (08:42→20:48)
[2023-03-13] MEDS: LORATADINE 10 MG TABLET PO (08:42)
[2023-03-13] MEDS: levETIRAcetam 500 MG TABLET PO ×2 (08:42→20:48)
[2023-03-13] MEDS: SENNOSIDES 1 TAB TABLET 2 TAB PO (08:42)
[2023-03-13] MEDS: APIXABAN 5 MG TABLET PO ×2 (08:43→20:48)
[2023-03-13] MEDS: OMEPRAZOLE 20 MG CAPSULE DR PO (08:43)
[2023-03-13] MEDS: oxyBUTYnin chloride 5 MG TAB.ER.24 15 MG PO (08:43)
[2023-03-13] MEDS: GABAPENTIN 100 MG CAPSULE 400 MG PO ×3 (08:43→20:48)
[2023-03-13] MEDS: ATORVASTATIN CALCIUM 40 MG TABLET PO (08:43)
[2023-03-13] MEDS: FLUTICASONE PROPIONATE NASAL 1 SPRAY NOSTRIL-B ×2 (08:48→08:50)
[2023-03-13] MEDS: SODIUM CHLORIDE 0.9 % (FLUSH) 10 ML SYRINGE 5 ML IVF ×2 (08:49→20:48)
[2023-03-13 11:00] VITALS: BP 109/87; PULSE 77; RESP 20; TEMP 36.3; O2SAT 94
[2023-03-13] MEDS: levoFLOXacin 500 MG TABLET PO (11:50)
[2023-03-13 15:00] VITALS: BP 113/50; PULSE 72; PULSE 77; RESP 16; RESP 20; TEMP 36.8; O2SAT 95
--- NOTE | 2023-03-13 15:42 | P.IMPN_ITS ---
Progress Note: A&P Assessment and plan (1) Fall: Problem details: - Multifactorial secondary to dizziness from low blood pressure, chronic weakness of the left arm and left leg from previous stroke, and possibly exacerbated by UTI and pneumonia. PT and OT evaluation and treatment. So far patient is requiring a lot of assistance for standing and transferring. Probably needs longterm facility Status: Acute (2) UTI (urinary tract infection): Problem details: Proteus mirabilis and E coli on urine culture susceptible to quinolones. Treat with Levaquin for 5 days. Status: Acute (3) Pneumonia: Problem details: Possible right middle lobe pneumonia. Clinically I do not suspect pneumonia. Will treat her UTI and possible pneumonia with Levaquin Status: Acute (4) Poor social situation: Problem details: - consult SW. Current arrangements arm not meeting the patient's needs due to her immobility. There appears to be significant family issues. Concern about household and personal hygiene as well. Patient has initially requested longterm facility rehab. She has changed her mind on a few occasions. Currently agreeing to longterm facility placement Status: Acute (5) CVA (cerebral vascular accident): Problem details: - Ischemic embolic - Chronic left arm and some left leg weakness. Also chronic pain on the left Status: Chronic (6) Personality disorder: Problem details: - Cluster B traits - Her daughter and son tell me she will have favorites, and this changes frequently. She frequently withdraws. She refuses various cares and does best when spoken to in a quiet voice with good eye contact, not talked down to. Status: Chronic (7) Paroxysmal atrial fibrillation: Problem details: - She was on warfarin for anticoagulation, but was chronically supratherapeutic and warfarin was discontinued in late February 2023 with the intention of starting Eliquis instead. - She has not been on rate control. HR is mildly elevated, but regular and EKG shows NSR. Monitor on tele. Status: Chronic (8) Seizures: Problem details: - Continue home medications Status: Chronic (9) Morbid exogenous obesity: Problem details: - Checked HgbA1C and TSH, both unremarkable Status: Chronic (10) Hypoxia: Problem details: Chronic. Uncertain what baseline is. Also sleep apnea. Status: Acute (11) Anxiety disorder: Problem details: - Continue home medications Status: Chronic (12) Dementia with mood disturbance: Problem details: Unclear how much cognitive impairment is present. Ongoing assessment. Appears competent to make decisions. Status: Acute (13) Disability due to neurological disorder: Problem details: Patient is currently fairly severely disabled by left-sided weakness which is old but now recent history of subacute decline with inability to manage at home Status: Acute (14) Obstructive sleep apnea: Problem details: Not using CPAP. Have daughter bring in equipment to see if it is salvageable and fixable Status: Acute (15) Pharyngoesophageal dysphagia: Problem details: Bedside evaluation by speech therapy is reassuring. No need for current dietary modifications Status: Chronic (16) Bacteremia: Problem details: Blood culture positive for Staph epi. Likely contaminant. Stop vanco. Status: Acute (17) Discharge planning issues: Problem details: Patient would like to be home with family caring for her. It is not clear that this plan will work for her. Look into alternatives. Status: Acute (18) Dermatitis: Problem details: Skin erythema, particularly in the skin folds and intertriginous areas, much improved with treatment with nystatin and good hygiene provided by the nurses Status: Acute Plan Continue in hospital pending safe discharge plan. Subjective Date Seen: 03/13/23 Interval history: Tatianna Stinson is a 62 year old female history of left arm and partial leg paresis secondary to a stroke in 2018 who lives at home with several generations, fell out of bed this morning. When EMS arrived, was reportedly covered in feces and the house was in shambles. Tatianna remembers trying to get out of bed using the bar that she has above her bed. She felt dizzy and ended up falling onto her left side. She has been feeling dizzy frequently lately for which she saw Dr. Damon just this past week. Her daughter, Harriet, took her to that visit. At that visit her blood pressure was low as it had been for several visits previously. Dr. Damon decreased her lisinopril from 20 to 5. She just started taking that dose 2 days ago. He also stopped warfarin because she had been supratherapeutic for several checks and she was going to start on Eliquis instead. Please also says that she has been feeling foggy or cloudy in the head lately. Her children have not noticed any changes in her mentation, but note that she sometimes forgets what day it is and her memory has been declining over months. Harriet works at [employer], and tries to check in on her mom as often as she can. Douglas calls her to talk with her, but because he lives in [place] has only been able to see her about once a year, and does have a visit scheduled in a few weeks. Harriet tells me that she has been working with Tatianna's gearcase assembler to get various things around the house fixed such as a tub. Tatianna has not been able to bathe in quite some time because the tub is not working and Tatianna often refuses care. Her children tell me that Tatianna will pick favorites for caregivers and if things are not done exactly as Tatianna wants, she will refuse cares altogether. Tatianna has been refusing to wear her home oxygen during the day. She will bleed it through her CPAP at night, but the mask is broken and so she just holds the hose near her mouth. Harriet tells me that this is what they were told to do until Harriet could get a new mask for it. Douglas is concerned that Tatianna has gained weight since she had a stroke in 2018 and her weight gain has made it difficult for her to move and so she has gotten weak. She is now using a wheelchair. Douglas also notes that Tatianna has had problems with incontinence of urine and he thinks that the mesh from her bladder repair many years ago is starting to give out. Since her stroke she has had chronic left shoulder pain and they have been told that this is likely from nerve damage from the stroke. In the last few days to weeks she has had increased frequency of urine, incontinence of urine although this is not new, and felt extra thirsty. All of them tell me that anxiety and depression have been a big problem and Tatianna has been working with a psychiatrist to adjust medications for insomnia. On admission she was identified as having a urinary tract infection and possible pneumonia and was started on ceftriaxone for this. Evaluation on admission shows that her hygiene is poor and nursing staff are able to provide some cleaning. She was found to have erythema and superficial ulcerations in multiple areas of skin folds including her left axilla under breasts under her abdominal pannus and in the inguinal folds. She denies fever or dyspnea but does report she has had some cough. She tells me today that she is able to walk with a 3 prong cane at home but when I see her today she is unable to roll over in bed or sit up without assistance. She is requiring heavy assist of 2 for repositioning. She lives at home with her , a daughter and her daughter's fiance and a grandchild. She tells me that she would like her daughter to move out of their house. Her daughter and family living with her was supposed to be a temporary arrangement but she is concerned it has become more permanent. Her daughter Harriet lives in [place] and is the healthcare power of insurance defense attorney. Harriet also sets up her medications. Her son in [place] manages her finances On March 10 Nursing staff were still using a ceiling lift to transfer bed to chair. On March 11 she was able to stand and hold onto a walker to pivot transfer. One of her blood cultures is positive for Staph epidermidis. Her urine cultures are still pending showing 2 different Gram-negative rods, both susceptible to quinolones. She is observed to be hypoxic at night and is on supplemental oxygen. Oxygen was turned up to 3 L due to O2 sats in the low 80s. This morning her venous blood gas shows a pCO2 of 65. Her daughter was asked to bring in her CPAP to see if this can be fixed to address her sleep apnea. Today she reports feeling a little better. Her appetite is improved. Nurses note that her skin is better. Less erythema in the skin folds and around her decubitus ulcers.. Exam Narrative: Exam Narrative: She is alert and appears in no distress. Mood and affect are brighter. Respirations are clear to auscultation. Cardiovascular: S1, S2 abdomen is soft without tenderness or mass. Left axilla, under the breasts, in the groin skin folds all much improved. Const: Vital Signs, click to edit/add: Vital Signs - 24 hr 03/12/23 19:00 03/12/23 23:00 03/12/23 23:00 Temperature 98.5 F Pulse Rate [Pulse Oximeter] 75 Respiratory Rate 20 20 20 Blood Pressure [Ri ght Arm] 99/48 L Pulse Oximetry 94 90 Oxygen Delivery Me thod Room Air CPAP Oxygen Flow Rate 2 03/12/23 23:00 03/13/23 03:00 03/13/23 07:00 Temperature 98 F 97.8 F Pulse Rate [Pulse Oximeter] 76 78 Respiratory Rate 20 18 Blood Pressure [Ri ght Arm] 101/52 L 113/53 L Pulse Oximetry 90 89 94 Oxygen Delivery Me thod CPAP CPAP Nasal Cannula Oxygen Flow Rate 2 03/13/23 11:00 Temperature 97.4 F L Pulse Rate [Pulse Oximeter] 77 Respiratory Rate 20 Blood Pressure [Ri ght Arm] 109/87 Pulse Oximetry 94 Oxygen Delivery Me thod Nasal Cannula Oxygen Flow Rate 2 Documenting provider has reviewed patient's vital signs: yes Labs Labs: Laboratory Results - last 24 hr 03/13/23 05:40 WBC 4.47 L RBC 3.37 L Hgb 9.2 L Hct 30.7 L MCV 91 MCH 27 MCHC 30 L RDW Coeff of Arturo 16.9 H Plt Count 203 Neut % (Auto) 58.8 Lymph % (Auto) 27.1 Mchenry % (Auto) 9.2 Eos % (Auto) 4.7 Baso % (Auto) 0.0 Neut # (Auto) 2.60 Lymph # (Auto) 1.20 Mchenry # (Auto) 0.40 Eos # (Auto) 0.20 Baso # (Auto) 0.00 Abs Immat Gran (auto) 0.00 Imm/Tot Granulo (auto) 0.2 Sodium 138 Potassium 3.7 Chloride 102 Carbon Dioxide 30 Anion Gap 6 L BUN 12 Creatinine 0.6 Estimated Creat Clear 48.87 Estimated GFR 102 Glucose 88 Calcium 8.4 C-Reactive Protein 3.2 H
[2023-03-13] MEDS: ACETAMINOPHEN 325 MG TABLET PO (15:53)
--- NOTE | 2023-03-13 16:21 | PC.SOCIAL ---
Discharge planning: Re-contacted facilities that were considering patient with the following results [facility] [place]- no bariatric beds left [facility] - No [facility]- faxed packet and are considering Social work to follow up as needed.
[2023-03-13] MEDS: MIRTAZAPINE 15 MG TABLET 30 MG PO (18:11)
[2023-03-13] MEDS: lamoTRIgine 100 MG TABLET 200 MG PO (18:12)
[2023-03-13] MEDS: TRAZODONE HCL 50 MG TABLET 200 MG PO (18:12)
--- NOTE | 2023-03-13 18:48 | PC.NURSE ---
Patient cooperative throughout shift with episodes of apprehension. Up with ceiling lift to chair and commode, able to stand with therapy. Patient reported pain in lower back and L shoulder, managed with MAR with verbalized improvement. Loose stool, MD aware. Panis, under arm, under breast skin folds cleansed and dried. Interdry x2 in panis and groin. Tolerating regular diet, able to feed self. Turn and reposition regularly, left side arm and leg remain weak.
[2023-03-13] MEDS: MELATONIN 3 MG TABLET 9 MG PO (20:48)
[2023-03-13 23:00] VITALS: BP 116/68; PULSE 72; PULSE 80; RESP 16; RESP 18; TEMP 36.6; O2SAT 91
--- NOTE | 2023-03-14 06:47 | PC.NURSE ---
SHIFT NOTE : Pt is alert, oriented with forgetfulness noted. Pt turned and repositioned frequently with a heavy 2-3 assist, pt encouraged to participate in cares but keeps stating I can't. Incontinent of urine, valentina care provided. CPAP on at HS, otherwise 2L O2 PNC when awake. Denies pain, SOB, CP, and N/V. Afebrile.
[2023-03-14 07:05] LABS: HCO3 VBG 33 mmol/L (21-28); PCO2 VBG 52 mmHG (40-50); PO2 VBG 65.2 mmHG (25-47); pH VBG 7.414 (7.32-7.43)
[2023-03-14 07:21] LABS: Basophils Absolute Auto 0.01 K/uL (0.00-0.30); Basophils Percent Auto 0.2 % (0.0-3.0); Eosinophils Absolute Auto 0.14 K/uL (0.00-0.50); Eosinophils Percent Auto 2.7 % (0.0-7.0); Hematocrit 31.6 % (33.0-51.0); Hemoglobin* 9.3 gm/dL (12.0-16.0); Immature Granulocytes Abs Auto 0.01 K/uL (0.00-0.30); Immature Granulocytes Pct Auto 0.2 %; Mean Corpuscular HGB Conc 29 gm/dL (32-36); Mean Corpuscular Hemoglobin 27 pg (26-34); Mean Corpuscular Volume 92 fL (80-100); Monocytes Percent Auto 8.4 % (0.0-11.0); Neutrophils Absolute Auto 3.42 K/uL (1.7-7.0); Neutrophils Percent Auto 65.5 % (42.0-72.0); Platelet Count* 212 K/uL (140-440); Red Blood Count 3.44 m/uL (4.00-5.20); White Blood Count* 5.22 K/uL (4.50-11.00)
[2023-03-14 07:41] LABS: Chloride* 100 mmol/L (96-114); Sodium* 136 mmol/L (135-149)
[2023-03-14 07:43] LABS: Creatinine* 0.6 mg/dL (0.5-1.5); Est. Creatinine Clearance* 48.87; Estimated Glomerular Filt Rate 102 ml/min
[2023-03-14 07:44] LABS: Anion Gap 3 mEq/L (7-15); Blood Urea Nitrogen* 13 mg/dL (7-30); Calcium* 8.7 mg/dL (8.4-10.6); Carbon Dioxide* 33 mmol/L (20-32); Glucose* 91 mg/dL (60-115)
[2023-03-14 07:50] LABS: Slide Review Reflex No
[2023-03-14 09:03] VITALS: BP 106/52; PULSE 75; RESP 18; TEMP 36.4; O2SAT 95
[2023-03-14] MEDS: oxyBUTYnin chloride 5 MG TAB.ER.24 15 MG PO (09:04)
[2023-03-14] MEDS: SENNOSIDES 1 TAB TABLET 2 TAB PO ×2 (09:04→20:43)
[2023-03-14] MEDS: ATORVASTATIN CALCIUM 40 MG TABLET PO (09:04)
[2023-03-14] MEDS: ASPIRIN 81 MG TABLET EC PO (09:04)
[2023-03-14] MEDS: GABAPENTIN 100 MG CAPSULE 400 MG PO ×3 (09:04→20:44)
[2023-03-14] MEDS: BUSPIRONE 10 MG TABLET 30 MG PO ×2 (09:04→20:45)
[2023-03-14] MEDS: APIXABAN 5 MG TABLET PO ×2 (09:04→20:43)
[2023-03-14] MEDS: levETIRAcetam 500 MG TABLET PO ×2 (09:05→20:44)
[2023-03-14] MEDS: OMEPRAZOLE 20 MG CAPSULE DR PO (09:05)
[2023-03-14] MEDS: LORATADINE 10 MG TABLET PO (09:05)
[2023-03-14] MEDS: SODIUM CHLORIDE 0.9 % (FLUSH) 10 ML SYRINGE 5 ML IVF ×3 (09:05→23:09)
[2023-03-14] MEDS: levoFLOXacin 500 MG TABLET PO (11:50)
--- NOTE | 2023-03-14 14:31 | PC.SOCIAL ---
Addendum entered by Brenda Ayala LCSW 03/14/23 16:04: Update: Talked to [facility] in [place] about bed possibility for this patient. They cannot accommodate patient due to currently only having shared rooms available and would not be able to use a Papo in those rooms. Social work to follow up as needed. Original Note: Discharge Plan: Continued contacting bariatric facilities with the following results. A few facilities are reviewing her referral. Contacted son Douglas by e-mail and updated him on this list. Social work to follow up as needed.? 1.? [facility] [place]- No 2.?[facility]- No 3.? [facility] -No 4.?[facility]- No 5.? [facility] msg # 2 6.? [facility] Msg # 2 7.? [facility] -Msg # 2 8.? [facility]-msg # 2 9.? [facility]- reviewing msg left 10.?? [facility]- msg #2 11.?? [facility]- Msg # 2 12.?? [facility] in [place] ? No 13.?? [facility]-msg 14.?? [facility] No 15.?? [facility] -Msg 16.?? [facility] [place] [phone]- Msg 17.?? [facility] [phone] 18.?? [facility] [phone] Can not accept Papo currently. 19.?? [facility] [phone] Msg 20.?? [facility]) [phone] Faxed to [phone] Considering for Friday.?? [facility] [phone] faxed to [phone] Considering 22.?? [facility] [phone]- No beds 23.?? [facility] [place] Mailbox full 24.?? [facility] [phone] Msg 25.?? [facility] ([facility] [place] [phone]) faxed to [phone] Considering 26.?? [facility] [phone] faxed to [phone] Considering 27.?? [facility] [phone] No female beds 28.?? [facility] [phone] No 29.?? [facility] [phone] ? [place] 30.?? [facility]
--- NOTE | 2023-03-14 14:59 | PM.IMPN1 ---
Progress Note: A&P Assessment and plan (1) Fall: Problem details: - Multifactorial secondary to dizziness from low blood pressure, chronic weakness of the left arm and left leg from previous stroke, and possibly exacerbated by UTI and pneumonia. PT and OT evaluation and treatment. So far patient is requiring a lot of assistance for standing and transferring. Probably needs group home facility Status: Acute (2) UTI (urinary tract infection): Problem details: Proteus mirabilis and E coli on urine culture susceptible to quinolones. Treated with Levaquin for 5 days, last dose March 14. Status: Acute (3) Pneumonia: Problem details: Possible right middle lobe pneumonia. Clinically I do not suspect pneumonia. Will treat her UTI and possible pneumonia with Levaquin Status: Acute (4) Poor social situation: Problem details: - consult SW. Current arrangements arm not meeting the patient's needs due to her immobility. There appears to be significant family issues. Concern about household and personal hygiene as well. Patient has initially requested group home facility rehab. She has changed her mind on a few occasions. Currently agreeing to group home facility placement. Retail Business Development Manager reports no success with finding a retirement. Status: Acute (5) CVA (cerebral vascular accident): Problem details: - Ischemic embolic - Chronic left arm and some left leg weakness. Also chronic pain on the left Status: Chronic (6) Personality disorder: Problem details: - Cluster B traits - Her daughter and son tell me she will have favorites, and this changes frequently. She frequently withdraws. She refuses various cares and does best when spoken to in a quiet voice with good eye contact, not talked down to. Status: Chronic (7) Paroxysmal atrial fibrillation: Problem details: - She was on warfarin for anticoagulation, but was chronically supratherapeutic and warfarin was discontinued in late February 2023 with the intention of starting Eliquis instead. - She has not been on rate control. HR is mildly elevated, but regular and EKG shows NSR. Monitor on tele. Status: Chronic (8) Seizures: Problem details: - Continue home medications Status: Chronic (9) Morbid exogenous obesity: Problem details: BMI 57 Status: Chronic (10) Hypoxia: Problem details: Chronic. Uncertain what baseline is. Also sleep apnea. Does not reliably use oxygen at home. CPAP equipment in poor condition and probably not using this either. Status: Acute (11) Anxiety disorder: Problem details: - Continue home medications Status: Chronic (12) Dementia with mood disturbance: Problem details: Unclear how much cognitive impairment is present. Ongoing assessment. Appears competent to make decisions. Status: Acute (13) Disability due to neurological disorder: Problem details: Patient is currently fairly severely disabled by left-sided weakness which is old but now recent history of subacute decline with inability to manage at home Status: Acute (14) Obstructive sleep apnea: Problem details: Not using CPAP. Home CPAP mask and filter in poor condition Status: Acute (15) Pharyngoesophageal dysphagia: Problem details: Bedside evaluation by speech therapy is reassuring. No need for current dietary modifications Status: Chronic (16) Bacteremia: Problem details: Blood culture positive for Staph epi. Likely contaminant. Stop vanco. Status: Acute (17) Discharge planning issues: Problem details: Patient would like to be home with family caring for her. It is not clear that this plan will work for her. Look into alternatives. Status: Acute (18) Dermatitis: Problem details: Skin erythema, particularly in the skin folds and intertriginous areas, much improved with treatment with nystatin and good hygiene provided by the nurses Status: Acute Plan Continue in hospital pending safe discharge plan. Subjective Date Seen: 03/14/23 Interval history: Tatianna Stinson is a 62 year old female history of left arm and partial leg paresis secondary to a stroke in 2018 who lives at home with several generations, fell out of bed this morning. When EMS arrived, was reportedly covered in feces and the house was in shambles. Tatianna remembers trying to get out of bed using the bar that she has above her bed. She felt dizzy and ended up falling onto her left side. She has been feeling dizzy frequently lately for which she saw Dr. Damon just this past week. Her daughter, Harriet, took her to that visit. At that visit her blood pressure was low as it had been for several visits previously. Dr. Damon decreased her lisinopril from 20 to 5. She just started taking that dose 2 days ago. He also stopped warfarin because she had been supratherapeutic for several checks and she was going to start on Eliquis instead. Please also says that she has been feeling foggy or cloudy in the head lately. Her children have not noticed any changes in her mentation, but note that she sometimes forgets what day it is and her memory has been declining over months. Harriet works at [employer], and tries to check in on her mom as often as she can. Douglas calls her to talk with her, but because he lives in [place] has only been able to see her about once a year, and does have a visit scheduled in a few weeks. Harriet tells me that she has been working with Tatianna's continuous pillowcase cutter to get various things around the house fixed such as a tub. Tatianna has not been able to bathe in quite some time because the tub is not working and Tatianna often refuses care. Her children tell me that Tatianna will pick favorites for caregivers and if things are not done exactly as Tatianna wants, she will refuse cares altogether. Tatianna has been refusing to wear her home oxygen during the day. She will bleed it through her CPAP at night, but the mask is broken and so she just holds the hose near her mouth. Harriet tells me that this is what they were told to do until Harriet could get a new mask for it. Douglas is concerned that Tatianna has gained weight since she had a stroke in 2018 and her weight gain has made it difficult for her to move and so she has gotten weak. She is now using a wheelchair. Douglas also notes that Tatianna has had problems with incontinence of urine and he thinks that the mesh from her bladder repair many years ago is starting to give out. Since her stroke she has had chronic left shoulder pain and they have been told that this is likely from nerve damage from the stroke. In the last few days to weeks she has had increased frequency of urine, incontinence of urine although this is not new, and felt extra thirsty. All of them tell me that anxiety and depression have been a big problem and Tatianna has been working with a psychiatrist to adjust medications for insomnia. On admission she was identified as having a urinary tract infection and possible pneumonia and was started on ceftriaxone for this. Evaluation on admission shows that her hygiene is poor and nursing staff are able to provide some cleaning. She was found to have erythema and superficial ulcerations in multiple areas of skin folds including her left axilla under breasts under her abdominal pannus and in the inguinal folds. She denies fever or dyspnea but does report she has had some cough. She tells me today that she is able to walk with a 3 prong cane at home but when I see her today she is unable to roll over in bed or sit up without assistance. She is requiring heavy assist of 2 for repositioning. She lives at home with her , a daughter and her daughter's fiance and a grandchild. She tells me that she would like her daughter to move out of their house. Her daughter and family living with her was supposed to be a temporary arrangement but she is concerned it has become more permanent. Her daughter Harriet lives in [place] and is the healthcare power of subscription crew leader. Harriet also sets up her medications. Her son in [place] manages her finances On March 10 Nursing staff were still using a ceiling lift to transfer bed to chair. On March 11 she was able to stand and hold onto a walker to pivot transfer. One of her blood cultures is positive for Staph epidermidis. Her urine cultures are still pending showing 2 different Gram-negative rods, both susceptible to quinolones. She is observed to be hypoxic at night and is on supplemental oxygen. Oxygen was turned up to 3 L due to O2 sats in the low 80s. This morning her venous blood gas shows a pCO2 of 65. Her daughter was asked to bring in her CPAP to see if this can be fixed to address her sleep apnea. Today she reports feeling a little better. Her appetite is improved. Nurses note that her skin is better. Less erythema in the skin folds and around her decubitus ulcers. Retail Business Development Manager have so far been unsuccessful in arranging group home facility transfer. Exam Narrative: Exam Narrative: She is alert and appears in no distress. Mood and affect are bright. Respirations are unlabored. Abdomen is soft without tenderness. Minimal peripheral edema. Const: Vital Signs, click to edit/add: Vital Signs - 24 hr 03/13/23 15:00 03/13/23 15:00 03/13/23 15:00 Temperature 98.2 F Pulse Rate [Pulse Oximeter] 77 72 Respiratory Rate 20 16 Blood Pressure [Ri ght Arm] 113/50 L Pulse Oximetry 95 95 Oxygen Delivery Me thod Nasal Cannula Nasal Cannula Oxygen Flow Rate 2 2 03/13/23 23:00 03/13/23 23:00 03/13/23 23:00 Temperature 97.8 F Pulse Rate [Pulse Oximeter] 72 80 Respiratory Rate 16 18 18 Blood Pressure [Ri ght Arm] 116/68 Pulse Oximetry 91 91 Oxygen Delivery Me thod CPAP CPAP Oxygen Flow Rate 03/14/23 09:03 03/14/23 09:03 Temperature 97.6 F Pulse Rate [Pulse Oximeter] 75 Respiratory Rate 18 Blood Pressure [Ri ght Arm] 106/52 L Pulse Oximetry 95 95 Oxygen Delivery Me thod Nasal Cannula Nasal Cannula Oxygen Flow Rate 2 2 Documenting provider has reviewed patient's vital signs: yes Labs Labs: Laboratory Results - last 24 hr 03/14/23 06:30 WBC 5.22 RBC 3.44 L Hgb 9.3 L Hct 31.6 L MCV 92 MCH 27 MCHC 29 L RDW Coeff of Arturo 17.0 H Plt Count 212 Neut % (Auto) 65.5 Lymph % (Auto) 23.0 [place] % (Auto) 8.4 Eos % (Auto) 2.7 Baso % (Auto) 0.2 Neut # (Auto) 3.42 Lymph # (Auto) 1.20 [place] # (Auto) 0.40 Eos # (Auto) 0.14 Baso # (Auto) 0.01 Abs Immat Gran (auto) 0.01 Imm/Tot Granulo (auto) 0.2 VBG pH 7.414 VBG pCO2 52 H VBG pO2 65.2 H VBG HCO3 33 H Sodium 136 Potassium 4.0 Chloride 100 Carbon Dioxide 33 H Anion Gap 3 L BUN 13 Creatinine 0.6 Estimated Creat Clear 48.87 Estimated GFR 102 Glucose 91 Calcium 8.7
[2023-03-14 15:32] VITALS: BP 115/55; PULSE 74; RESP 18; TEMP 36.6; O2SAT 90
[2023-03-14] MEDS: TRAZODONE HCL 50 MG TABLET 200 MG PO (17:54)
[2023-03-14] MEDS: MIRTAZAPINE 15 MG TABLET 30 MG PO (17:54)
[2023-03-14] MEDS: lamoTRIgine 100 MG TABLET 200 MG PO (17:54)
[2023-03-14 20:00] VITALS: BP 135/63; PULSE 77; RESP 20; TEMP 36.7; O2SAT 89
[2023-03-14] MEDS: HYDROmorphone 2 MG TABLET PO (22:41)
[2023-03-14] MEDS: ACETAMINOPHEN 325 MG TABLET PO (22:41)
[2023-03-14] MEDS: ONDANSETRON 2 MG/ML inj 4 MG IVP (23:09)
[2023-03-14 23:30] VITALS: PULSE 84; RESP 16; RESP 20; O2SAT 88
[2023-03-15 06:55] LABS: Eosinophils Absolute Auto 0.13 K/uL (0.00-0.50); Eosinophils Percent Auto 2.2 % (0.0-7.0); Hematocrit 33.1 % (33.0-51.0); Hemoglobin* 9.6 gm/dL (12.0-16.0); Immature Granulocytes Abs Auto 0.01 K/uL (0.00-0.30); Immature Granulocytes Pct Auto 0.2 %; Lymphocytes Percent Auto 18.8 % (20-44); Mean Corpuscular HGB Conc 29 gm/dL (32-36); Mean Corpuscular Hemoglobin 27 pg (26-34); Mean Corpuscular Volume 93 fL (80-100); Monocytes Percent Auto 5.5 % (0.0-11.0); Neutrophils Percent Auto 73.3 % (42.0-72.0); Platelet Count* 208 K/uL (140-440); RDW Coefficient of Variation % 17.1 % (11.5-15.5); Red Blood Count 3.57 m/uL (4.00-5.20); White Blood Count* 5.79 K/uL (4.50-11.00)
[2023-03-15 07:08] LABS: Slide Review Reflex No
[2023-03-15 07:31] LABS: Chloride* 101 mmol/L (96-114); Sodium* 139 mmol/L (135-149)
[2023-03-15 07:32] LABS: Potassium* 3.7 mmol/L (3.6-5.1)
[2023-03-15 07:34] LABS: Creatinine* 0.6 mg/dL (0.5-1.5); Est. Creatinine Clearance* 48.87; Estimated Glomerular Filt Rate 102 ml/min
[2023-03-15 07:35] LABS: Anion Gap 8 mEq/L (7-15); Blood Urea Nitrogen* 16 mg/dL (7-30); Calcium* 8.5 mg/dL (8.4-10.6); Carbon Dioxide* 30 mmol/L (20-32); Glucose* 99 mg/dL (60-115)
--- NOTE | 2023-03-15 07:47 | PC.NURSE ---
End of shift note [id number]: Pt alert and oriented x3 with some forgetfulness. Afebrile. Pt reports 6/10 pain in left hip/buttock area, pain managed with PRN medications. Skin is dry and intact, pt does have bruises on both buttocks that pt reports is from a previous fall at home. Pt reported having to use the bathroom several times throughout the night but was unable to void on bed pain. Lead Game Designer did bladder scan, promotion writer made x4 scans ml shown ranged between 74-148 ml. Pt did void 200ml around 0600, urine was dark los/brown. Pt had CPAP on from around 2330 to 0400, CPAP continuously slid down pt's face despite attempts to readjust, and around 0400 pt's O2 stats ranged between 78-84% pt was placed on 2L of oxygen maintaining O2 stats of 88-90%. Pt slept intermittently throughout night.
[2023-03-15 08:53] VITALS: BP 116/67; PULSE 96; RESP 18; TEMP 37.2; O2SAT 90
[2023-03-15] MEDS: GABAPENTIN 100 MG CAPSULE 400 MG PO ×3 (09:15→20:33)
[2023-03-15] MEDS: FLUTICASONE PROPIONATE NASAL 1 SPRAY NOSTRIL-B (09:15)
[2023-03-15] MEDS: SENNOSIDES 1 TAB TABLET 2 TAB PO ×2 (09:16→20:32)
[2023-03-15] MEDS: LORATADINE 10 MG TABLET PO (09:16)
[2023-03-15] MEDS: APIXABAN 5 MG TABLET PO ×2 (09:16→20:32)
[2023-03-15] MEDS: BUSPIRONE 10 MG TABLET 30 MG PO ×2 (09:16→20:31)
[2023-03-15] MEDS: OMEPRAZOLE 20 MG CAPSULE DR PO (09:16)
[2023-03-15] MEDS: oxyBUTYnin chloride 5 MG TAB.ER.24 15 MG PO (09:16)
[2023-03-15] MEDS: levETIRAcetam 500 MG TABLET PO ×2 (09:17→20:32)
[2023-03-15] MEDS: ATORVASTATIN CALCIUM 40 MG TABLET PO (09:17)
[2023-03-15] MEDS: ASPIRIN 81 MG TABLET EC PO (09:17)
[2023-03-15] MEDS: SODIUM CHLORIDE 0.9 % (FLUSH) 10 ML SYRINGE 5 ML IVF ×3 (09:17→21:49)
--- NOTE | 2023-03-15 09:58 | PM.IMPN1 ---
Progress Note: A&P Assessment and plan (1) Fall: Problem details: - Multifactorial (BP med, weakness from CVA, UTI, deconditioning) - OT/PT to continue - correct underlying issues - pt is not able to care for herself and her needs are not being met within her family residence. - awaiting SNF placement. Social work working diligently on >30 locations. Status: Acute (2) UTI (urinary tract infection): Problem details: Proteus mirabilis and E coli on urine culture susceptible to quinolones. Treated with Levaquin for 5 days, last dose March 14. Status: Acute (3) Pneumonia: Problem details: RML, some cough. no fever. on RA s/p 5 days of levaquin. adding nebs and ISP/aerobika Status: Acute (4) Poor social situation: Problem details: - consult SW. Current arrangements arm not meeting the patient's needs due to her immobility. There appears to be significant family issues. Concern about household and personal hygiene as well. Patient has initially requested longterm facility rehab. She has changed her mind on a few occasions. Currently agreeing to longterm facility placement. Senior Marketing Coordinator reports no success with finding a custodial. Status: Acute (5) CVA (cerebral vascular accident): Problem details: - Ischemic embolic - Chronic left arm and some left leg weakness. Also chronic pain on the left Status: Chronic (6) Personality disorder: Problem details: - Cluster B traits - Her daughter and son tell me she will have favorites, and this changes frequently. She frequently withdraws. She refuses various cares and does best when spoken to in a quiet voice with good eye contact, not talked down to. Status: Chronic (7) Paroxysmal atrial fibrillation: Problem details: - She was on warfarin for anticoagulation, but was chronically supratherapeutic and warfarin was discontinued in late February 2023 and started on Eliquis (continued here) - She has not been on rate control. HR is mildly elevated, but regular and EKG shows NSR. Monitor on tele. Status: Chronic (8) Seizures: Problem details: - Continue home medications Status: Chronic (9) Morbid exogenous obesity: Problem details: BMI 57 therapeutic strict diet to 2000 davon and two cokes a day Status: Chronic (10) Hypoxia: Problem details: Chronic. Uncertain what baseline is. Also sleep apnea. Does not reliably use oxygen at home. CPAP equipment in poor condition and probably not using this either. Status: Acute (11) Anxiety disorder: Problem details: - Continue home medications Status: Chronic (12) Dementia with mood disturbance: Problem details: Unclear how much cognitive impairment is present. Ongoing assessment. Appears competent to make decisions. Status: Acute (13) Disability due to neurological disorder: Problem details: Patient is currently fairly severely disabled by left-sided weakness which is old but now recent history of subacute decline with inability to manage at home Status: Acute (14) Obstructive sleep apnea: Problem details: Not using CPAP. Home CPAP mask and filter in poor condition Status: Acute (15) Pharyngoesophageal dysphagia: Problem details: Bedside evaluation by speech therapy is reassuring. No need for current dietary modifications Status: Chronic (16) Bacteremia: Problem details: Blood culture positive for Staph epi. Likely contaminant. Stop vanco. Status: Acute (17) Discharge planning issues: Problem details: Patient would like to be home with family caring for her. It is not clear that this plan will work for her. Look into alternatives. Status: Acute (18) Dermatitis: Problem details: Skin erythema, particularly in the skin folds and intertriginous areas, much improved with treatment with nystatin and good hygiene provided by the nurses Status: Acute Subjective Date Seen: 03/15/23 Interval history: Daily Progress Note - Hospital Medicine #: 8 CC: fall at home, weakness, poor self care, UTI OVERNIGHT UPDATES FROM STAFF & MED, LAB, IMAGING UPDATES -reviewed comprehensive note from Dr. Angel dated 03/14. -flat affect. pt resists working with PT - anxiety over falling - drinking and eating excessive calories. -overnight: Pt alert and oriented x3 with some forgetfulness. Afebrile. Pt reports 6/10 pain in left hip/buttock area, pain managed with PRN medications. Skin is dry and intact, pt does have bruises on both buttocks that pt reports is from a previous fall at home. Pt reported having to use the bathroom several times throughout the night but was unable to void on bed pain. Workplace Relations Adviser did bladder scan, bond writer made x4 scans ml shown ranged between 74-148 ml. Pt did void 200ml around 0600, urine was dark los/brown. Pt had CPAP on from around 2330 to 0400, CPAP continuously slid down pt's face despite attempts to readjust, and around 0400 pt's O2 stats ranged between 78-84% pt was placed on 2L of oxygen maintaining O2 stats of 88-90%. Pt slept intermittently throughout night. 135/63. Pulse 84. Respirations 20. Afebrile. O2 sat 98% on room air. Daily weight is not being obtained. CBC stable with gradual decline in her hemoglobin. PH much improved from 10/3. PCO2 is minimally elevated at 52 Electrolytes, renal function are all normal. Blood cultures are negative at 96 and 72 hours. MRSA negative. Two Gram-negative rods, Proteus and E coli identified in the urine. Sensitivities reviewed. (finished 5 days of abx) Objective: flat affect. NAD Vitals: see above Lungs: Clear. Cardiac: S1S2. Disposition/Potential discharge - Likely to return to previous living situation. Today I spent 50minutes seeing the patient, reviewing Expanse and EPIC notes/diagnostics, discussing the care plan with our care time that includes social work, PT/OT, pharmacy, RT, longterm and documenting my impressions and plan in the medical record. Exam Const: Vital Signs, click to edit/add: Vital Signs - 24 hr 03/14/23 15:32 03/14/23 15:32 03/14/23 20:00 Temperature 97.8 F 98.1 F Pulse Rate [Pulse Oximeter] 74 77 Respiratory Rate 18 20 Blood Pressure [Ri ght Arm] 115/55 L 135/63 Pulse Oximetry 90 90 89 Oxygen Delivery Me thod Room Air Room Air Room Air 03/14/23 23:30 03/14/23 23:30 03/15/23 08:53 Temperature Pulse Rate [Pulse Oximeter] 84 Respiratory Rate 16 20 Blood Pressure [Ri ght Arm] Pulse Oximetry 88 90 Oxygen Delivery Me thod CPAP Room Air Labs Labs: Laboratory Results - last 24 hr 03/15/23 06:07 WBC 5.79 RBC 3.57 L Hgb 9.6 L Hct 33.1 MCV 93 MCH 27 MCHC 29 L RDW Coeff of Arturo 17.1 H Plt Count 208 Neut % (Auto) 73.3 H Lymph % (Auto) 18.8 L [place] % (Auto) 5.5 Eos % (Auto) 2.2 Baso % (Auto) 0.0 Neut # (Auto) 4.20 Lymph # (Auto) 1.10 [place] # (Auto) 0.30 Eos # (Auto) 0.13 Baso # (Auto) 0.00 Abs Immat Gran (auto) 0.01 Imm/Tot Granulo (auto) 0.2 Sodium 139 Potassium 3.7 Chloride 101 Carbon Dioxide 30 Anion Gap 8 BUN 16 Creatinine 0.6 Estimated Creat Clear 48.87 Estimated GFR 102 Glucose 99 Calcium 8.5
[2023-03-15 15:00] VITALS: RESP 18
[2023-03-15 17:00] VITALS: BP 105/59; PULSE 87; RESP 23; TEMP 37.2; O2SAT 83; O2SAT 92
[2023-03-15] MEDS: MIRTAZAPINE 15 MG TABLET 30 MG PO (17:13)
[2023-03-15] MEDS: lamoTRIgine 100 MG TABLET 200 MG PO (17:13)
[2023-03-15] MEDS: ACETAMINOPHEN 325 MG TABLET PO ×2 (17:14→23:56)
[2023-03-15] MEDS: TRAZODONE HCL 50 MG TABLET 200 MG PO (19:15)
[2023-03-15 19:25] VITALS: BP 133/60; PULSE 85; RESP 20; TEMP 37.4; O2SAT 89
--- NOTE | 2023-03-15 19:57 | PC.NURSE ---
Nursing Care Hours:[id number] Pt this shift calm and cooperative with cares. C/o pain to left leg. Changing position was effective for short period and then increased again, 09/16. Treated per eMAR. Requiring 2L NC to keep sats above 90%. No void or BM this shift. Ate 50% of meal and requested peanut butter toast.
[2023-03-15] MEDS: ONDANSETRON 2 MG/ML inj 4 MG IVP (21:43)
[2023-03-15 23:00] VITALS: PULSE 85; RESP 20; O2SAT 89
[2023-03-15 23:56] VITALS: TEMP 37.4
[2023-03-15] MEDS: IPRAT-ALBUT 0.5-2.5 MG/3 ML NEB 1 NEB IH (23:57)
[2023-03-16 06:33] LABS: HCO3 VBG 33 mmol/L (21-28); PCO2 VBG 53 mmHG (40-50); PO2 VBG 57.8 mmHG (25-47); pH VBG 7.395 (7.32-7.43)
[2023-03-16] MEDS: IPRAT-ALBUT 0.5-2.5 MG/3 ML NEB 1 NEB IH ×3 (06:37→23:45)
[2023-03-16 06:39] LABS: Hemoglobin* 9.4 gm/dL (12.0-16.0)
--- NOTE | 2023-03-16 06:44 | PC.NURSE ---
Pt alert and oriented x3. Pt reports 4/10 pain in left leg and hip, pain managed with scheduled and PRN medications. Pt O2 stats dropped to 80-84%, 2 L via nasal cannula was placed on pt and O2 stats ranged between 88-90%. Pt slept throughout most of night. Night uneventful.
[2023-03-16 06:54] LABS: Chloride* 100 mmol/L (96-114); Sodium* 138 mmol/L (135-149)
[2023-03-16 06:55] LABS: Potassium* 4.1 mmol/L (3.6-5.1)
[2023-03-16 06:57] LABS: Anion Gap 7 mEq/L (7-15); Blood Urea Nitrogen* 16 mg/dL (7-30); Carbon Dioxide* 31 mmol/L (20-32); Creatinine* 0.6 mg/dL (0.5-1.5); Est. Creatinine Clearance* 48.87; Estimated Glomerular Filt Rate 102 ml/min
[2023-03-16 06:58] LABS: Calcium* 8.4 mg/dL (8.4-10.6); Glucose* 115 mg/dL (60-115)
--- NOTE | 2023-03-16 07:40 | PM.IMPN1 ---
Progress Note: A&P Assessment and plan (1) Fall: Problem details: - Multifactorial (BP med, weakness from CVA, UTI, deconditioning) - OT/PT to continue - correct underlying issues - pt is not able to care for herself and her needs are not being met within her family residence. - awaiting SNF placement. Social work working diligently on >30 locations Status: Acute (2) UTI (urinary tract infection): Problem details: Proteus mirabilis and E coli on urine culture susceptible to quinolones. Treated with Levaquin for 5 days, last dose March 14. Status: Acute (3) Pneumonia: Problem details: RML, some cough. no fever. on RA s/p 5 days of levaquin. adding nebs and ISP/aerobika Chest x-ray on 03/16, single-view in the room: Status: Acute (4) Chronic intermittent hypoxia with obstructive sleep apnea: Problem details: multifactorial -FAIZA, pt is not compliant with CPAP at home or here -restrictive lung disease -subacute anemia -COPD? -RML questionable infilitrate here (CXR 03/16 was underwhelming; difficult to assess) -continue oxygen support 1-2L with CPAP (if patient would use) going forward. Status: Acute (5) Anemia: Problem details: -admit hemoglobin 11.9. Hemoconcentrated. -9.1-9.6, currently -has not been worked up in this admission. MCV normal. Normal renal function. no evidence of bleeding. -will add b12, folate, iron levels, retic count, peripheral smear (03/16) -liver panel was essentially normal and TSH normal this admission -will guaiac stools -start iron replacement. -will need EGD/Colonoscopy outpatient Status: Acute (6) Paroxysmal atrial fibrillation: Problem details: - She was on warfarin for anticoagulation, but was chronically supratherapeutic and warfarin was discontinued in late February 2023 and started on Eliquis (continued here) - She has not been on rate control. HR is mildly elevated, but regular and EKG shows NSR. Monitor on tele. Status: Chronic (7) Poor social situation: Problem details: - consult SW. Current arrangements are not meeting the patient's needs due to her immobility. There appears to be significant family issues. Concern about household and personal hygiene as well. Patient has initially requested halfway facility rehab. She has changed her mind on a few occasions. Currently agreeing to halfway facility placement. Retail Sales Associate Seasonal reports no success with finding a retirement. Status: Acute (8) CVA (cerebral vascular accident): Problem details: - Ischemic embolic - Chronic left arm and some left leg weakness. Also chronic pain on the left Status: Chronic (9) Personality disorder: Problem details: - Cluster B traits - Her daughter and son tell me she will have favorites, and this changes frequently. She frequently withdraws. She refuses various cares and does best when spoken to in a quiet voice with good eye contact, not talked down to. Status: Chronic (10) Seizures: Problem details: - Continue home medications Status: Chronic (11) Morbid exogenous obesity: Problem details: BMI 57 therapeutic strict diet to 2000 davon and two cokes a day Status: Chronic (12) Anxiety disorder: Problem details: - Continue home medications Status: Chronic (13) Dementia with mood disturbance: Problem details: Unclear how much cognitive impairment is present. Ongoing assessment. Appears competent to make decisions. Status: Acute (14) Disability due to neurological disorder: Problem details: Patient is currently fairly severely disabled by left-sided weakness which is old but now recent history of subacute decline with inability to manage at home Status: Acute (15) Pharyngoesophageal dysphagia: Problem details: Bedside evaluation by speech therapy is reassuring. No need for current dietary modifications Status: Chronic (16) Bacteremia: Problem details: Blood culture positive for Staph epi. Likely contaminant. Stop vanco. Status: Acute (17) Discharge planning issues: Problem details: Patient would like to be home with family caring for her. It is not clear that this plan will work for her. Look into alternatives. Status: Acute (18) Dermatitis: Problem details: Skin erythema, particularly in the skin folds and intertriginous areas, much improved with treatment with nystatin and good hygiene provided by the nurses Status: Acute Subjective Date Seen: 03/16/23 Interval history: Daily Progress Note - Hospital Medicine #: 9 CC: fall at home, weakness, poor self care, UTI OVERNIGHT UPDATES FROM STAFF & MED, LAB, IMAGING UPDATES -reviewed comprehensive note from Dr. Angel dated 03/14. -flat affect but overall no real change, denies needs from hospitalist today. -not using/refusing CPAP -overnight:Pt alert and oriented x3. Pt reports 4/10 pain in left leg and hip, pain managed with scheduled and PRN medications. Pt O2 stats dropped to 80-84%, 2 L via nasal cannula was placed on pt and O2 stats ranged between 88-90%. Pt slept throughout most of night. Night uneventful. T-max 99.3? overnight. Blood pressures have been well managed systolic as low as 105 but averaging in the 1 teens to 130s. Diastolic in the 50s. Pulse rate 80s Respiratory rate 20 Dropping to 80-85 while sleeping. Not wearing CPAP. Titrated to 2 L for sats greater than 88%. Hemoglobin 9.4, stable pH is stable. Hypercapnia is stable Electrolytes, renal function are all normal. Blood cultures continue to be negative No MRSA on screen Previously addressed her urine, completed therapy Two Gram-negative rods, Proteus and E coli identified in the urine. Sensitivities reviewed. (finished 5 days of abx) Objective: flat affect. NAD Vitals: see above Lungs: Clear. Cardiac: S1S2. Disposition/Potential discharge - Awaiting placement in halfway with long-term plan is to moved [place] to be closer to her son Today I spent 50minutes seeing the patient, reviewing Expanse and EPIC notes/diagnostics, discussing the care plan with our care time that includes social work, PT/OT, pharmacy, RT, halfway and documenting my impressions and plan in the medical record. Exam Const: Vital Signs, click to edit/add: Vital Signs - 24 hr 03/15/23 08:53 03/15/23 08:53 03/15/23 15:00 Temperature 99.0 F Pulse Rate [Pulse Oximeter] 96 Respiratory Rate 18 18 Blood Pressure [Ri t Arm] 116/67 Pulse Oximetry 90 90 Oxygen Delivery Me thod Room Air Room Air Oxygen Flow Rate 03/15/23 17:00 03/15/23 17:00 03/15/23 19:25 Temperature 98.9 F 99.3 F Pulse Rate [Pulse Oximeter] 87 85 Respiratory Rate 23 23 20 Blood Pressure [Ri ght Arm] 105/59 L 133/60 Pulse Oximetry 83 L 92 89 Oxygen Delivery Me thod Room Air Nasal Cannula Room Air Oxygen Flow Rate 2 03/15/23 23:00 03/15/23 23:00 03/15/23 23:56 Temperature 99.3 F Pulse Rate [Pulse Oximeter] 85 Respiratory Rate 20 20 Blood Pressure [Ri ght Arm] Pulse Oximetry 89 Oxygen Delivery Me thod Room Air Oxygen Flow Rate 2 Labs Labs: Laboratory Results - last 24 hr 03/15/23 03/16/23 06:07 05:58 Hgb 9.4 L VBG pH 7.395 VBG pCO2 53 H VBG pO2 57.8 H VBG HCO3 33 H Sodium 139 138 Potassium 3.7 4.1 Chloride 101 100 Carbon Dioxide 30 31 Anion Gap 8 7 BUN 16 16 Creatinine 0.6 0.6 Estimated Creat Clear 48.87 48.87 Estimated GFR 102 102 Glucose 99 115 Calcium 8.5 8.4
--- NOTE | 2023-03-16 07:46 | CRLHL7_ITS ---
For Patients: As a result of the Cures Act, medical imaging exams and procedure reports are released immediately into your electronic medical record. You may view this report before your referring provider. If you have questions, please contact your health care provider. HISTORY: Right middle lobe pneumonia. TECHNIQUE: One view of the chest. COMPARISON: CT from 03/08/2023. FINDINGS: Examination limited by patient body habitus and low lung volumes. Prominence of the pulmonary vasculature. No definite lung consolidation. No pneumothorax or pleural effusion. Cardiac size prominent but exaggerated by technique. IMPRESSION: 1. Examination limited by low lung volumes and patient body habitus. 2. No definite consolidation. Dictated by Conor Ballard MD @ 03/16/2023 8:40:45 AM Dictated by: Conor Ballard MD @ 03/16/2023 08:40:54 (Electronically Signed)
[2023-03-16 08:21] LABS: Immature Reticulocyte Fraction 36.2 % (3.0-15.9); Reticulocyte Hemoglobin Equivi 23.6 pg (29.0-35.0); Reticulocyte Percent 1.7 % (0.5-2.0); Reticulocytes Absolute 0.06 # (0.03-0.08)
[2023-03-16 08:37] LABS: Iron* 29 ug/dL (37-170)
[2023-03-16 08:39] VITALS: BP 125/56; PULSE 82; RESP 18; TEMP 36.8; O2SAT 90
[2023-03-16] MEDS: FLUTICASONE PROPIONATE NASAL 1 SPRAY NOSTRIL-B (08:40)
[2023-03-16] MEDS: APIXABAN 5 MG TABLET PO ×2 (08:41→20:16)
[2023-03-16] MEDS: OMEPRAZOLE 20 MG CAPSULE DR PO (08:41)
[2023-03-16] MEDS: BUSPIRONE 10 MG TABLET 30 MG PO ×2 (08:41→20:17)
[2023-03-16] MEDS: GABAPENTIN 100 MG CAPSULE 400 MG PO ×3 (08:41→20:19)
[2023-03-16] MEDS: oxyBUTYnin chloride 5 MG TAB.ER.24 15 MG PO (08:41)
[2023-03-16] MEDS: ATORVASTATIN CALCIUM 40 MG TABLET PO (08:41)
[2023-03-16] MEDS: levETIRAcetam 500 MG TABLET PO ×2 (08:41→20:16)
[2023-03-16] MEDS: SODIUM CHLORIDE 0.9 % (FLUSH) 10 ML SYRINGE 5 ML IVF ×2 (08:41→21:47)
[2023-03-16] MEDS: LORATADINE 10 MG TABLET PO (08:42)
[2023-03-16] MEDS: SENNOSIDES 1 TAB TABLET 2 TAB PO ×2 (08:42→20:15)
[2023-03-16] MEDS: ASPIRIN 81 MG TABLET EC PO (08:42)
[2023-03-16 08:46] LABS: Percent Iron Saturation 11 % (20-50); Total Iron Binding Capacity 257 ug/dL (265-497)
[2023-03-16 09:14] LABS: Ferritin* 33.7 ng/mL (11.1-264.0)
[2023-03-16 09:15] LABS: Vitamin B12* 310 pg/mL (243-894)
[2023-03-16] MEDS: FERROUS SULFATE 325 MG TABLET 650 MG PO (14:35)
[2023-03-16 15:00] VITALS: O2SAT 89
[2023-03-16 16:56] VITALS: BP 115/50; PULSE 90; RESP 20; TEMP 37.4; O2SAT 89
[2023-03-16] MEDS: TRAZODONE HCL 50 MG TABLET 200 MG PO (17:43)
[2023-03-16] MEDS: MIRTAZAPINE 15 MG TABLET 30 MG PO (17:43)
[2023-03-16] MEDS: lamoTRIgine 100 MG TABLET 200 MG PO (17:45)
[2023-03-16 19:30] VITALS: BP 133/70; PULSE 91; RESP 18; TEMP 36.8; O2SAT 90
[2023-03-16] MEDS: HYDROmorphone 2 MG TABLET PO (20:16)
[2023-03-16] MEDS: ONDANSETRON 2 MG/ML inj 4 MG IVP (21:47)
[2023-03-16 22:15] VITALS: PULSE 91; RESP 18; O2SAT 90
[2023-03-17 06:32] LABS: Hematocrit 33.2 % (33.0-51.0); Hemoglobin* 9.7 gm/dL (12.0-16.0); Mean Corpuscular HGB Conc 29 gm/dL (32-36); Mean Corpuscular Hemoglobin 27 pg (26-34); Mean Corpuscular Volume 93 fL (80-100); Platelet Count* 229 K/uL (140-440); Red Blood Count 3.56 m/uL (4.00-5.20); White Blood Count* 8.65 K/uL (4.50-11.00)
[2023-03-17 06:41] LABS: HCO3 VBG 33 mmol/L (21-28); PCO2 VBG 54 mmHG (40-50); pH VBG 7.389 (7.32-7.43)
[2023-03-17 06:46] LABS: Slide Review Reflex No
[2023-03-17 07:01] LABS: Albumin* 3.1 g/dL (3.3-5.0); Chloride* 99 mmol/L (96-114); Sodium* 137 mmol/L (135-149)
[2023-03-17 07:03] LABS: Anion Gap 6 mEq/L (7-15); Bilirubin Total* 0.5 mg/dL (0.1-1.5); Carbon Dioxide* 32 mmol/L (20-32); Creatinine* 0.5 mg/dL (0.5-1.5); Est. Creatinine Clearance* 48.87; Estimated Glomerular Filt Rate 107 ml/min
[2023-03-17 07:04] LABS: Alanine Aminotransferase* 18 U/L (4-35); Alkaline Phosphatase* 99 U/L (40-150); Aspartate Amino Transferase* 27 U/L (12-35); Blood Urea Nitrogen* 14 mg/dL (7-30); Calcium* 8.4 mg/dL (8.4-10.6); Glucose* 100 mg/dL (60-115); Total Protein* 5.6 g/dL (6.0-8.3)
[2023-03-17 07:56] VITALS: BP 132/59; PULSE 98; RESP 14; TEMP 37.3; O2SAT 92
[2023-03-17 08:02] VITALS: RESP 14; O2SAT 92
--- NOTE | 2023-03-17 08:16 | PC.NURSE ---
Shift note [id number]: Pt alert and oriented x3. Afebrile. Pt reports 5/10 pain in left knee and hip, managed with scheduled and PRN medications. Pt refused CPAP overnight, pt reported the straps hurt and tug at her hair, pt?s strap placement was adjusted but pt could not tolerate, education was given on benefits of CPAP, pt refused. Pt is on 2L of oxygen maintaining range between 88-90%.?Pt was turned and repositioned throughout night and pt slept intermittently throughout night.??
[2023-03-17] MEDS: bisacodyL 10 MG SUPP.RECT PR (08:40)
[2023-03-17] MEDS: ASPIRIN 81 MG TABLET EC PO (08:47)
[2023-03-17] MEDS: APIXABAN 5 MG TABLET PO ×2 (08:47→21:02)
[2023-03-17] MEDS: ATORVASTATIN CALCIUM 40 MG TABLET PO (08:47)
[2023-03-17] MEDS: BUSPIRONE 10 MG TABLET 30 MG PO ×2 (08:48→21:02)
[2023-03-17] MEDS: levETIRAcetam 500 MG TABLET PO ×2 (08:50→21:03)
[2023-03-17] MEDS: LORATADINE 10 MG TABLET PO (08:50)
[2023-03-17] MEDS: oxyBUTYnin chloride 5 MG TAB.ER.24 15 MG PO (08:51)
[2023-03-17] MEDS: OMEPRAZOLE 20 MG CAPSULE DR PO (08:51)
[2023-03-17] MEDS: SENNOSIDES 1 TAB TABLET 2 TAB PO ×2 (08:52→21:04)
[2023-03-17] MEDS: SODIUM CHLORIDE 0.9 % (FLUSH) 10 ML SYRINGE 5 ML IVF ×2 (08:53→21:04)
[2023-03-17] MEDS: GABAPENTIN 100 MG CAPSULE 400 MG PO ×3 (09:32→21:03)
[2023-03-17] MEDS: IPRAT-ALBUT 0.5-2.5 MG/3 ML NEB 1 NEB IH ×2 (11:16→18:42)
--- NOTE | 2023-03-17 11:39 | PM.IMPN1 ---
Progress Note: A&P Assessment and plan (1) Fall: Problem details: - Multifactorial (BP med, weakness from CVA/left hemiparesis, UTI, deconditioning) - OT/PT to continue - correct underlying issues - pt is not able to care for herself and her needs are not being met within her family residence. - awaiting SNF placement. Social work working diligently on >30 locations Status: Acute (2) UTI (urinary tract infection): Problem details: Proteus mirabilis and E coli on urine culture susceptible to quinolones. Treated with Levaquin for 5 days, last dose March 14. Status: Acute (3) Pneumonia: Problem details: Possible right middle lobe infiltrate on admission. Treated with Levaquin for 5 days. No ongoing signs or symptoms of pneumonia. Status: Acute (4) Chronic intermittent hypoxia with obstructive sleep apnea: Problem details: multifactorial -FAIZA, pt is not compliant with CPAP at home or here -restrictive lung disease -subacute anemia -COPD? -RML questionable infilitrate here (CXR 03/16 was underwhelming; difficult to assess) -continue oxygen support 1-2L with CPAP (if patient would use) going forward. Status: Acute (5) Anemia: Problem details: -admit hemoglobin 11.9. Hemoconcentrated. -9.1-9.6, currently -has not been worked up in this admission. MCV normal. Normal renal function. no evidence of bleeding. -will add b12, folate, iron levels, retic count, peripheral smear (03/16) -liver panel was essentially normal and TSH normal this admission -will guaiac stools -start iron replacement. -will need EGD/Colonoscopy outpatient Status: Acute (6) Paroxysmal atrial fibrillation: Problem details: - She was on warfarin for anticoagulation, but was chronically supratherapeutic and warfarin was discontinued in late February 2023 and started on Eliquis (continued here) - She has not been on rate control. HR is mildly elevated, but regular and EKG shows NSR. Monitor on tele. Status: Chronic (7) Poor social situation: Problem details: - consult SW. Current arrangements are not meeting the patient's needs due to her immobility. There appears to be significant family issues. Concern about household and personal hygiene as well. Patient has initially requested care home facility rehab. She has changed her mind on a few occasions. Currently agreeing to care home facility placement. Visual Manager reports no success with finding a [place] [facility] [place]. Status: Acute (8) CVA (cerebral vascular accident): Problem details: - Ischemic embolic - Chronic left arm and some left leg weakness. Also chronic pain on the left Status: Chronic (9) Personality disorder: Problem details: - Cluster B traits - Her daughter and son tell me she will have favorites, and this changes frequently. She frequently withdraws. She refuses various cares and does best when spoken to in a quiet voice with good eye contact, not talked down to. Status: Chronic (10) Seizures: Problem details: - Continue home medications Status: Chronic (11) Morbid exogenous obesity: Problem details: BMI 57. Discussed with patient a plan for strict calorie restriction. Calorie restriction of 1200 calories per day Status: Chronic (12) Anxiety disorder: Problem details: - Continue home medications Status: Chronic (13) Dementia with mood disturbance: Problem details: Unclear how much cognitive impairment is present. Ongoing assessment. Appears competent to make decisions. Status: Acute (14) Disability due to neurological disorder: Problem details: Patient is currently fairly severely disabled by left-sided weakness which is old but now recent history of subacute decline with inability to manage at home Status: Acute (15) Pharyngoesophageal dysphagia: Problem details: Bedside evaluation by speech therapy is reassuring. No need for current dietary modifications Status: Chronic (16) Bacteremia: Problem details: Blood culture positive for Staph epi. Likely contaminant. No treatment Status: Acute (17) Discharge planning issues: Problem details: Patient would like to be home with family caring for her. It is not clear that this plan will work for her. Look into alternatives. Status: Acute (18) Dermatitis: Problem details: Skin erythema, particularly in the skin folds and intertriginous areas, much improved with treatment with nystatin and good hygiene provided by the nurses Status: Acute Plan Continue in hospital pending safe discharge plan. Time Spent With Patient Total time spent: Total time spent today is 45 minutes, 30 minutes in coordination of care discussing with patient other providers ongoing management of disabilities, obesity, sleep apnea and disposition Subjective Date Seen: 03/17/23 Interval history: 62-year-old female with remote history of stroke causing left hemiparesis and left-sided pain admitted to the hospital after a fall at home on March 08. Initial evaluation showed no serious injury. She did have bruising around her left shoulder. She was found to have a urinary tract infection. Initially there was concern about sepsis and she was treated with broad-spectrum antibiotics. Cultures eventually grew Proteus mirabilis and E coli sensitive to quinolones. She had a 5 day course of Levaquin. Subsequently has had no further evidence of ongoing infection. On admission she was also found to have decubitus ulcers. These have largely healed. Her home situation was of concern to the paramedics. She had poor personal hygiene and her home was apparently in poor condition. Her primary care providers are her family. There was concern that they were not going to be able to take care of her. She reports at home that she is able to stand and transfer using a cane but here in the hospital she has required assist of 2 for all activities. She is noted to have hypoxia. This is a chronic diagnosis for her. She has home oxygen but has not been regularly using it. She has home CPAP which she reports that she uses at home but her equipment was in poor condition. With a new mask she has been set up for her CPAP here in the hospital but she has not been using at the last 2 nights. Exam Narrative: Exam Narrative: She is alert and appears in no distress. She is breathing comfortably on 2 L per nasal cannula. She is oriented to her circumstances. Breathing is unlabored. Abdomen is soft without tenderness. Skin on her backside is without any open ulcers or significant erythema. She has some tenderness with palpation over her entire left side. Const: Vital Signs, click to edit/add: Vital Signs - 24 hr 03/16/23 15:00 03/16/23 16:56 03/16/23 19:30 Temperature 99.3 F 98.2 F Pulse Rate [Pulse Oximeter] 90 91 Respiratory Rate 20 18 Blood Pressure [Le ft Arm] Blood Pressure [Ri ght Arm] 115/50 L 133/70 Pulse Oximetry 89 89 90 Oxygen Delivery Me thod Room Air Room Air Room Air Oxygen Flow Rate 03/16/23 22:15 03/16/23 22:15 03/17/23 07:56 Temperature 99.2 F Pulse Rate [Pulse Oximeter] 91 98 Respiratory Rate 18 18 14 Blood Pressure [Le ft Arm] 132/59 L Blood Pressure [Ri ght Arm] Pulse Oximetry 90 92 Oxygen Delivery Me thod Room Air Nasal Cannula Oxygen Flow Rate 2 2 03/17/23 08:02 Temperature Pulse Rate [Pulse Oximeter] Respiratory Rate 14 Blood Pressure [Le ft Arm] Blood Pressure [Ri ght Arm] Pulse Oximetry 92 Oxygen Delivery Me thod Nasal Cannula Oxygen Flow Rate 2 Documenting provider has reviewed patient's vital signs: yes Labs Labs: Laboratory Results - last 24 hr 03/17/23 05:53 WBC 8.65 RBC 3.56 L Hgb 9.7 L Hct 33.2 MCV 93 MCH 27 MCHC 29 L Plt Count 229 VBG pH 7.389 VBG pCO2 54 H VBG pO2 52.0 H VBG HCO3 33 H Sodium 137 Potassium 4.0 Chloride 99 Carbon Dioxide 32 Anion Gap 6 L BUN 14 Creatinine 0.5 Estimated Creat Clear 48.87 Estimated GFR 107 Glucose 100 Calcium 8.4 Total Bilirubin 0.5 AST 27 ALT 18 Alkaline Phosphatase 99 Total Protein 5.6 L Albumin 3.1 L
--- NOTE | 2023-03-17 12:08 | PC.NURSE ---
PATIENT NEEDING MUCH ENCOURAGEMENT TO PARTICIPATE IN TRANSFERRING (PIVOT TRANSFER TO COMMODE). THIS RISK ASSESSMENT CONSULTANT AND ANOTHER RN ATTEMPTED TO ASSIST PATIENT FROM SITTING TO STANDING POSITION AFTER BREAKFAST TO USE COMMODE THOUGH PATIENT SAID, YOU KNOW ABOUT MY ANXIETY RIGHT? AND WAS NOTED TO BE SAYING, I CAN'T! BEFORE ATTEMPT TO STAND WAS MADE. STAFF THEN HAD TO USE CEILING LIFT TO ASSIST PATIENT FROM RECLINER TO COMMODE FOR TOILETING. PATIENT HAS TWO THERAPY SESSIONS THIS AFTERNOON WHICH SHE IS AWARE OF.
--- NOTE | 2023-03-17 14:33 | PC.NURSE ---
SHIFT NOTE: PATIENT WAS GIVEN PRN BISACODYL SUPPOSITORY THIS MORNING WITH ONE SMALL FORMED BM NOTED UPON FOLLOWUP. NO VERBAL OR NONVERBAL C/O PAIN NOTED AT REST. DISCOMFORT WITH REPOSITIONING CONTROLLED WITH SCHEDULED PAIN MEDICATION ALONG WITH ENCOURAGING REST. LS HAVE BEEN CLEAR TO ALL LOBES BILATERALLY. BOWEL SOUNDS ACTIVE IN ALL FOUR QUADRANTS WITH FLUIDS ENCOURAGED. PATIENT CONTINUES TO REQUIRE ENCOURAGEMENT TO PARTICIPATE IN ADLS. SHE ATE 50% OF BREAKFAST AND 50% OF LUNCH. STAFF HAVE ATTEMPTED TO ASSIST WITH PIVOT TRANSFERRING TO COMMODE THOUGH PATIENT UNABLE TO SAFELY COMPLETE TASK WITH STAFF ASSISTANCE. NO C/O N/V NOTED THIS SHIFT. O2 92% ON 2 LITERS OXYGEN VIA NC. PATIENT SEEN BY MD BENITO THIS MORNING.
[2023-03-17 15:45] VITALS: BP 112/54; PULSE 84; RESP 18; TEMP 36.8; O2SAT 96
[2023-03-17 16:06] VITALS: BMI 57.2
--- NOTE | 2023-03-17 16:07 | PC.SOCIAL ---
Called the following facilities regarding placement: 1.? [facility]- declined 2.?? [facility] - no beds 3.?? [facility] [phone] - still assessing, will call back. 4.?? [facility] (Centralized Admissions through [place] [phone]) faxed to [phone] - requested information be refaxed. Awaiting call back with decision. 5.?? [facility] [phone] faxed to [phone], still assessing, will call back. 6. [facility] - information re-faxed at their request. Awaiting decision on admit. warehouse production worker to follow up as needed.
[2023-03-17] MEDS: lamoTRIgine 100 MG TABLET 200 MG PO (18:42)
[2023-03-17] MEDS: MIRTAZAPINE 15 MG TABLET 30 MG PO (18:42)
[2023-03-17] MEDS: TRAZODONE HCL 50 MG TABLET 200 MG PO (18:43)
--- NOTE | 2023-03-17 20:00 | PC.NURSE ---
Pt alert and able to express needs. Pt able to stand with Kevin PT today, however with nursing and CONVEX GRINDER, pt expresses anxiety about risk of falling like she had at home. Reassured pt proper staff and equipment is being use. Pt was able to stand but did not ambulate. Pt up with 2, and either ceiling lift or EZ-stand to bedside commode. Encouraged pt to continue standing to gain strength and confidence. [address] Cal[address] diet implement per Dr. Angel, senior asic engineer in to speak to pt about menu and goal of healthy food choice. Menu items low in nutrient, high in fat have been blacked out, allowing pt to see what options she has to choose from to gain knowledge of smart choices and give her independence in what she'd like to eat. Pt not happy about change in menu options.
[2023-03-17 21:29] LABS: Reticulocyte Hemoglobin Equivi 24.2 pg (29.0-35.0); Reticulocytes Absolute 0.07 # (0.03-0.08)
[2023-03-17] MEDS: HYDROmorphone 2 MG TABLET PO (21:40)
[2023-03-17] MEDS: TRAZODONE HCL 50 MG TABLET 25 MG PO (21:41)
[2023-03-17 23:50] VITALS: BP 137/71; PULSE 101; RESP 18; TEMP 36.8; O2SAT 85
[2023-03-17 23:55] VITALS: PULSE 101; RESP 18; O2SAT 85
[2023-03-18] MEDS: IPRAT-ALBUT 0.5-2.5 MG/3 ML NEB 1 NEB IH ×3 (01:24→21:52)
[2023-03-18 07:00] VITALS: BP 153/93; PULSE 100; RESP 18; TEMP 36.7; O2SAT 93
--- NOTE | 2023-03-18 07:08 | PC.NURSE ---
Patient dangled at bedside, but remained in her bed tonight.?Used the bedpan to urinate throughout the night. No BM. Passing gas. Moist, non-productive cough. Enc deep breathing exercises. C-Pap on with 2 LPM bleeding in, O2 sats maintaining 88-91%. Patient occasionally dips to mid 80?S on room air. Reported pain?in her gluteal rated 5/10. Repositioning and PRN pain medication given, offered relief. ?Patient requested a sleeping aide and was given PRN Trazodone, was able to sleep through the night with occasional bathroom breaks.?
[2023-03-18] MEDS: FLUTICASONE PROPIONATE NASAL 1 SPRAY NOSTRIL-B (09:47)
[2023-03-18] MEDS: PSYLLIUM HUSK (WITH SUGAR) 12 GM PACKET PO (09:47)
[2023-03-18] MEDS: BUSPIRONE 10 MG TABLET 30 MG PO ×2 (09:47→21:46)
[2023-03-18] MEDS: polyethylene glycoL 3350 17 GM PACK PO (09:47)
[2023-03-18] MEDS: GABAPENTIN 100 MG CAPSULE 400 MG PO ×3 (09:48→21:49)
[2023-03-18] MEDS: levETIRAcetam 500 MG TABLET PO ×2 (09:48→21:51)
[2023-03-18] MEDS: ATORVASTATIN CALCIUM 40 MG TABLET PO (09:48)
[2023-03-18] MEDS: ASPIRIN 81 MG TABLET EC PO (09:48)
[2023-03-18] MEDS: LORATADINE 10 MG TABLET PO (09:49)
[2023-03-18] MEDS: APIXABAN 5 MG TABLET PO ×2 (09:49→21:47)
[2023-03-18] MEDS: SENNOSIDES 1 TAB TABLET 2 TAB PO ×2 (09:49→21:51)
[2023-03-18] MEDS: oxyBUTYnin chloride 5 MG TAB.ER.24 15 MG PO (09:49)
[2023-03-18] MEDS: OMEPRAZOLE 20 MG CAPSULE DR PO (09:49)
[2023-03-18] MEDS: SODIUM CHLORIDE 0.9 % (FLUSH) 10 ML SYRINGE 5 ML IVF (09:50)
--- NOTE | 2023-03-18 10:26 | PM.IMPN1 ---
Progress Note: A&P Assessment and plan (1) Fall: Problem details: - Multifactorial (BP med, weakness from CVA/left hemiparesis, UTI, deconditioning) - OT/PT to continue - correct underlying issues - pt is not able to care for herself and her needs are not being met within her family residence. - awaiting SNF placement. Social work working diligently on >30 locations Status: Acute (2) UTI (urinary tract infection): Problem details: Proteus mirabilis and E coli on urine culture susceptible to quinolones. Treated with Levaquin for 5 days, last dose March 14. Status: Acute (3) Pneumonia: Problem details: Possible right middle lobe infiltrate on admission. Treated with Levaquin for 5 days. No ongoing signs or symptoms of pneumonia. Status: Acute (4) Chronic intermittent hypoxia with obstructive sleep apnea: Problem details: Patient has home oxygen which she has not been consistently using. Diagnosis for this I believe is COPD. She also has sleep apnea for which she is prescribed CPAP. She was not using this at home consistently. Staff if provided and new mask and cleaned up her equipment. Has not been consistent with its use here. Continue to encourage use of CPAP at night Status: Acute (5) Anemia: Problem details: -admit hemoglobin 11.9. Hemoconcentrated. -9.1-9.6, currently -has not been worked up in this admission. MCV normal. Normal renal function. no evidence of bleeding. -will add b12, folate, iron levels, retic count, peripheral smear (03/16) -liver panel was essentially normal and TSH normal this admission -will guaiac stools -start iron replacement. -will need EGD/Colonoscopy outpatient Status: Acute (6) Paroxysmal atrial fibrillation: Problem details: - She was on warfarin for anticoagulation, but was chronically supratherapeutic and warfarin was discontinued in late February 2023 and started on Eliquis (continued here) - She has not been on rate control. HR is mildly elevated, but regular and EKG shows NSR. Monitor on tele. Status: Chronic (7) Poor social situation: Problem details: - consult SW. Current arrangements are not meeting the patient's needs due to her immobility. There appears to be significant family issues. Concern about household and personal hygiene as well. Patient has initially requested half-way facility rehab. She has changed her mind on a few occasions. Currently agreeing to half-way facility placement. Director Of Medical Review reports no success with finding a care home. Status: Acute (8) CVA (cerebral vascular accident): Problem details: - Ischemic embolic - Chronic left arm and some left leg weakness. Also chronic pain on the left Status: Chronic (9) Personality disorder: Problem details: - Cluster B traits - Her daughter and son tell me she will have favorites, and this changes frequently. She frequently withdraws. She refuses various cares and does best when spoken to in a quiet voice with good eye contact, not talked down to. Status: Chronic (10) Seizures: Problem details: - Continue home medications Status: Chronic (11) Morbid exogenous obesity: Problem details: BMI 57. Discussed with patient a plan for strict calorie restriction. Weight loss will improve her chances at living arrangements that are more except including half-way facilities or returning home with family. Calorie restriction of 1200 calories per day Status: Chronic (12) Anxiety disorder: Problem details: - Continue home medications Status: Chronic (13) Dementia with mood disturbance: Problem details: Unclear how much cognitive impairment is present. Ongoing assessment. Appears competent to make decisions. Status: Acute (14) Disability due to neurological disorder: Problem details: Patient is currently fairly severely disabled by left-sided weakness which is old but now recent history of subacute decline with inability to manage at home Status: Acute (15) Pharyngoesophageal dysphagia: Problem details: Bedside evaluation by speech therapy is reassuring. No need for current dietary modifications Status: Chronic (16) Bacteremia: Problem details: Blood culture positive for Staph epi. Likely contaminant. No treatment Status: Acute (17) Discharge planning issues: Problem details: Patient would like to be home with family caring for her. It is not clear that this plan will work for her. Look into alternatives. Status: Acute (18) Dermatitis: Problem details: Skin erythema, particularly in the skin folds and intertriginous areas, much improved with treatment with nystatin and good hygiene provided by the nurses Status: Acute (19) Constipation: Problem details: She is on a number of medications causing constipation. Now with her calorie restricted diet will add in Metamucil and MiraLax and senna. Status: Acute (20) Abdominal pain: Problem details: She has been reporting a abdominal pain on and off during her hospital stay. Sometimes associated with constipation. On admission her abdominal CT was unremarkable. Abdominal pain is not associated with nausea, vomiting or loss of appetite. She is eating normally. We are working on her constipation. Status: Acute Plan Continue in hospital pending safe discharge plan. Time Spent With Patient Total time spent: Total time spent is 50 minutes, 30 minutes in coordination of care and discussing with other providers and patient weight loss, disposition, goals of care Subjective Date Seen: 03/18/23 Interval history: 62-year-old female with remote history of stroke causing left hemiparesis and left-sided pain admitted to the hospital after a fall at home on March 08. Initial evaluation showed no serious injury. She did have bruising around her left shoulder. She was found to have a urinary tract infection. Initially there was concern about sepsis and she was treated with broad-spectrum antibiotics. Cultures eventually grew Proteus mirabilis and E coli sensitive to quinolones. She had a 5 day course of Levaquin. Subsequently has had no further evidence of ongoing infection. On admission she was also found to have decubitus ulcers. These have largely healed. Her home situation was of concern to the paramedics. She had poor personal hygiene and her home was apparently in poor condition. Her primary care providers are her family. There was concern that they were not going to be able to take care of her. She reports at home that she is able to stand and transfer using a cane but here in the hospital she has required assist of 2 for all activities. She is noted to have hypoxia. This is a chronic diagnosis for her. She has home oxygen but has not been regularly using it. She has home CPAP which she reports that she uses at home but her equipment was in poor condition. With a new mask she has been set up for her CPAP here in the hospital but she has not been using consistently. She reports she did use it last night and a worked well. Yesterday discussed with her the importance of a calorie restricted diet to achieve weight loss and improve her overall health and most importantly to improve her odds of living independently with family, either her family in [place] or her son in [place]. She is agreeable to that. She subsequently is indicated to nursing staff that she is resistant to the idea of a calorie restricted diet and limitations on her food choices. I discussed again with her today and she has least open to this. She reports today that she is got some constipation and generalized abdominal pain. She was able to eat breakfast without difficulty Exam Narrative: Exam Narrative: She is alert appears in no distress. Breathing is unlabored. Abdomen: Bowel sounds active. Abdomen is soft with mild diffuse tenderness. Const: Vital Signs, click to edit/add: Vital Signs - 24 hr 03/17/23 15:45 03/17/23 15:45 03/17/23 23:50 Temperature 98.2 F 98.3 F Pulse Rate [Pulse Oximeter] 84 101 H Respiratory Rate 18 18 18 Blood Pressure [Le ft Arm] 137/71 Blood Pressure [Ri ght Arm] 112/54 L Pulse Oximetry 96 96 85 L Oxygen Delivery Me thod Nasal Cannula Nasal Cannula Room Air Oxygen Flow Rate 1 1 03/17/23 23:55 03/17/23 23:55 03/18/23 07:00 Temperature Pulse Rate [Pulse Oximeter] 101 H 100 Respiratory Rate 18 18 18 Blood Pressure [Le ft Arm] Blood Pressure [Ri ght Arm] Pulse Oximetry 85 L Oxygen Delivery Me thod Room Air Oxygen Flow Rate 03/18/23 07:00 03/18/23 07:00 Temperature 98.1 F Pulse Rate [Pulse Oximeter] 100 Respiratory Rate 18 18 Blood Pressure [Le ft Arm] Blood Pressure [Ri ght Arm] 153/93 H Pulse Oximetry 93 93 Oxygen Delivery Me thod CPAP CPAP Oxygen Flow Rate Documenting provider has reviewed patient's vital signs: yes Labs Labs: Laboratory Results - last 24 hr 03/17/23 05:53 Absolute Retic 0.07 Percent Retic 2.0 Immature Retic Fraction 41.0 H Retic Hgb Equivalent 24.2 L
--- NOTE | 2023-03-18 14:19 | NUTR.NU ---
Nutrition Follow-up: RDN followed-up with patient regarding diet order and menu. Patient reported following diet o 1200 kcals/CCD3 (3 carb choices for each meal) using modified menu provided by RDN. Patient reported that she is still hungry during visit, however she ordered mashed potatoes and cup of fruit. She wanted a grilled cheese sandwich, however this is not in compliance with her diet. RDN reviewed other protein options with patient that is in compliance with her diet including Egg or tuna salad sandwich, baked cod, turkey and chicken. Patient had no questions at this time. RDN encouraged patient to let staff know if she did have any questions or concerns. RDN to follow-up prn. Of note, no updated weight since admit has been taken. RDN asked for new weight to be taken at IDT 03/17/23 and 03/18/23.
[2023-03-18] MEDS: ALBUTEROL INHALER 2 PUFF IH (14:32)
[2023-03-18] MEDS: FERROUS SULFATE 325 MG TABLET 650 MG PO (14:32)
--- NOTE | 2023-03-18 14:51 | PC.NURSE ---
End of shift note: Pt alert, oriented, and able to express needs. Pt cleared by Kevin PT to get on bedside commode with EZ stand today, however with nursing staff and 2 FERNANDO's, pt expresses anxiety about risk of falling like she had at home. RN reassured the pt that proper staff and equipment is being used. Patient was able to tolerate movement with EZ stand. RN and nursing staff continues to encouraged pt to continue standing to gain strength and confidence. [address] per Dr[address] Angel. Menu items low in nutrient, high in fat have been blacked out, allowing pt to see what options she has to choose from to gain knowledge of smart choices and give her independence in what she'd like to eat. Pt not happy about change in menu options. Patient was unhappy and verbalized to Kevin in PT that she hates all of the nurses here. CLEVELAND Bullock met with patient alongside Pia in Patient Advocate. Patient was told to group her calls and cares during busy times but patient was still using call light inappropriately and complaining that the no one was assisting her. Charge nurse and MD aware.
--- NOTE | 2023-03-18 15:49 | PC.SOCIAL ---
Addendum entered by ELSA Lobato 03/18/23 16:04: Social workers have contacted a total of 42 assisted facilities that can provide bariatric care and have called all the SNF facilities on the hospital resource list. At this time three SNF facilities are evaluating pt for admit. rubber and plastics worker to continue to look for short term rehab placement as needed. Original Note: Discharge planning: Called the following facilities from hospital resource list of SNF's who are able to meet bariatric needs with the listed results: 1. [facility] - left message requesting call back. 2. [facility]: unable to accept pt's with MA as not certified for MA payment. 3. [facility] emailed referral to [email or web address]. Awaiting decision on admit. 4. [facility] - [phone]. Spoke with Paula and faxed information as requested to [phone]. 5. [facility] left message requesting call back. 6. [facility] - Left message requesting call back. 7. [facility] - Left message requesting call back. 8. [facility] - Left message requesting call back. Awaiting decisions from [facility] and [facility] from today's calls. [phone][facility] Called back and left message and awaiting call with decision on admit.
[2023-03-18 16:35] VITALS: BP 135/68; PULSE 92; RESP 18; TEMP 36.8; O2SAT 93
[2023-03-18] MEDS: MIRTAZAPINE 15 MG TABLET 30 MG PO (17:59)
[2023-03-18] MEDS: TRAZODONE HCL 50 MG TABLET 200 MG PO (17:59)
[2023-03-18] MEDS: lamoTRIgine 100 MG TABLET 200 MG PO (17:59)
[2023-03-18 22:23] LABS: Folate, Serum 2.9 ng/mL (>=5.9)
[2023-03-18 23:30] VITALS: RESP 18
[2023-03-18 23:45] VITALS: BP 132/54; PULSE 96; RESP 18; RESP 20; TEMP 36.8; O2SAT 82
--- NOTE | 2023-03-18 23:45 | PC.NURSE ---
Shift [id number]- Patient is repositioned with pillows for offloading per her comfort/preference. She states some pain to left side, which is improved with repositioning. She refused evening medications on first attempt, but agreeable on 2nd. IV discontinued with catheter intact.
[2023-03-19 06:00] VITALS: RESP 20
--- NOTE | 2023-03-19 07:47 | PC.NURSE ---
Shift note [id number]: Pt alert and oriented x3. Afebrile. Pt wore CPAP overnight but pt?s CPAP mask would not be in the correct position when proposal lead writer checked in on pt, mask would be readjusted back on pt?s face several times.?Pt is on 2L of oxygen via oxygen adapter with CPAP machine?and maintaining range between 88-90%. Pt was switch back to nasal cannula at 2L around 0650. Pt slept intermittently throughout night.??
[2023-03-19 08:30] VITALS: PULSE 93; RESP 20; O2SAT 92
[2023-03-19 10:00] VITALS: BP 137/58; PULSE 93; RESP 20; TEMP 36.7; O2SAT 92
[2023-03-19] MEDS: APIXABAN 5 MG TABLET PO (10:45)
[2023-03-19] MEDS: oxyBUTYnin chloride 5 MG TAB.ER.24 15 MG PO (10:45)
[2023-03-19] MEDS: ATORVASTATIN CALCIUM 40 MG TABLET PO (10:46)
[2023-03-19] MEDS: polyethylene glycoL 3350 17 GM PACK PO (10:46)
[2023-03-19] MEDS: SENNOSIDES 1 TAB TABLET 2 TAB PO (10:46)
[2023-03-19] MEDS: ASPIRIN 81 MG TABLET EC PO (10:46)
[2023-03-19] MEDS: PSYLLIUM HUSK (WITH SUGAR) 12 GM PACKET PO (10:46)
[2023-03-19] MEDS: LORATADINE 10 MG TABLET PO (10:47)
[2023-03-19] MEDS: FLUTICASONE PROPIONATE NASAL 1 SPRAY NOSTRIL-B (10:47)
[2023-03-19] MEDS: BUSPIRONE 10 MG TABLET 30 MG PO (10:47)
[2023-03-19] MEDS: GABAPENTIN 100 MG CAPSULE 400 MG PO ×2 (10:47→14:47)
[2023-03-19] MEDS: levETIRAcetam 500 MG TABLET PO (10:47)
[2023-03-19] MEDS: OMEPRAZOLE 20 MG CAPSULE DR PO (10:47)
--- NOTE | 2023-03-19 11:10 | PC.SOCIAL ---
Addendum entered by ELSA Lobato 03/19/23 16:39: PAS completed and submitted [id number]. Original Note: Discharge planning: Received calls back from [facility] and [facility] stating they can all accept pt today. Called pt's son, Douglas, who she had requesting discharge planning. Shared information on accepting facilities with son. Son is requesting placement at [facility] and requesting pt be transported by ambulance to the facility. Son is hoping grandchildren can visit after school today with pt before she transfers as this will help her to accept this discharge plan. Called [facility] plan coordinator who states pt needs to be in the building by 6:00pm and orders need to be faxed by 3:00 pm. Ambulance transport will be scheduled at 3:30 today. Shared by phone with son the Important notice from [employer]. He is in agreement with discharge today. black off worker to follow up as needed.
--- NOTE | 2023-03-19 11:15 | P.DS_ITS ---
DS: Providers Provider Date Seen: 03/19/23 Date of admission: 03/10/23 07:32 Primary care physician: Cruz Damon MD Admitting Clinician: Diane Colvin MD Attending Physician on discharge: Isac Angel MD Date of Discharge: 03/19/23 DS: Diagnosis Discharge Diagnosis (1) UTI (urinary tract infection): Status: Acute Problem details: Admitted to the hospital with acute illness. Likely UTI is the primary cause. Proteus mirabilis and E coli on urine culture susceptible to quinolones. Treated with Levaquin for 5 days, last dose March 14. (2) Pneumonia: Status: Acute Problem details: Possible right middle lobe infiltrate on admission. Treated with Levaquin for 5 days. No ongoing signs or symptoms of pneumonia. (3) Fall: Status: Acute Problem details: Fell prior to admission. Head injury to left shoulder without apparent fracture. Cause of the fall is likely acute on chronic weakness and acute infection, UTI and/or pneumonia. Illness is resolved. Weakness is persistent (4) Abdominal pain: Status: Acute Problem details: She has been reporting a abdominal pain on and off during her hospital stay. Sometimes associated with constipation. On admission her abdominal CT was unremarkable. Abdominal pain is not associated with nausea, vomiting or loss of appetite. She is eating normally. We are working on her constipation. (5) Chronic left shoulder pain: Status: Acute Problem details: Patient has chronic left shoulder pain after her stroke and re-injured her shoulder due to a fall prior to admission (6) Constipation: Status: Acute Problem details: She is on a number of medications causing constipation. Treated with senna and Metamucil. (7) Chronic intermittent hypoxia with obstructive sleep apnea: Status: Acute Problem details: Patient has home oxygen which she has not been consistently using. Diagnosis for this I believe is COPD. She also has sleep apnea for which she is prescribed CPAP. She was not using this at home consistently. Staff if provided and new mask and cleaned up her equipment. Continue to encourage use of CPAP at night. Supplemental oxygen to maintain oxygen saturations at 90% as needed (8) Anemia: Status: Acute Problem details: Chronic anemia. Hemoglobin is stable. Has iron deficiency. Started on oral iron. Outpatient follow-up evaluation is recommended. (9) Dermatitis: Status: Acute Problem details: Skin erythema, particularly in the skin folds and intertriginous areas, much improved with treatment with nystatin and good hygiene provided by the nurses (10) Bacteremia: Status: Acute Problem details: Blood culture positive for Staph epi. Likely contaminant. No treatment (11) Obstructive sleep apnea: Status: Acute Problem details: Not using CPAP consistently. Home CPAP mask and filter in poor condition. Mask replaced and cleaned equipment. (12) Disability due to neurological disorder: Status: Acute Problem details: Patient is currently fairly severely disabled by left-sided hemiparesis which is from old stroke. On this admission was found to be quite weak. Has required assist of 2 or Papo transfer on admission to the hospital (13) Anxiety disorder: Status: Chronic Problem details: - Continue home medications (14) CVA (cerebral vascular accident): Status: Chronic Problem details: - Ischemic embolic in 2018 - Chronic left arm and some left leg weakness. Also chronic pain on the left side. (15) Pharyngoesophageal dysphagia: Status: Chronic Problem details: Bedside evaluation by speech therapy is reassuring. No need for current dietary modifications (16) Seizures: Status: Chronic Problem details: - Continue home medications. No seizure activity observed in the hospital (17) Paroxysmal atrial fibrillation: Status: Chronic Problem details: Rate control and anticoagulation (18) Morbid exogenous obesity: Status: Chronic Problem details: BMI 57. Discussed with patient the benefit of calorie restricted diet for weight loss. (19) Discharge planning issues: Status: Acute Problem details: Patient would like to be home with family caring for her. Uncertain whether family is able to care for her. (20) Personality disorder: Status: Chronic Problem details: History of cluster B personality traits. (21) Poor social situation: Status: Acute Problem details: Concern about family being able to care for her in the home given her significant disabilities (22) Hypertension: Status: Acute Problem details: Treated for hypertension prior to admission. Lisinopril dose had been decreased as an outpatient because of low blood pressure. Lisinopril was stopped on admission because blood pressure continued to remain low. DS: Summary Hospital Course Hospital Course: 62-year-old female with remote history of stroke causing left hemiparesis and left-sided pain admitted to the hospital after a fall at home on March 08. Initial evaluation showed no serious injury. She did have bruising around her left shoulder. She was found to have a urinary tract infection. Initially there was concern about sepsis and she was treated with broad-spectrum antibiotics. Cultures eventually grew Proteus mirabilis and E coli sensitive to quinolones. She had a 5 day course of Levaquin. Subsequently has had no further evidence of ongoing infection. On admission she was also found to have decubitus ulcers. These have largely healed. Her home situation was of concern to the paramedics. She had poor personal hygiene and her home was apparently in poor condition. Her primary care providers are her family. There was concern that they were not going to be able to take care of her. She reports at home that she is able to stand and transfer using a cane but here in the hospital she has required assist of 2 for all activities. She is noted to have hypoxia. This is a chronic diagnosis for her. She has home oxygen but has not been regularly using it. She has home CPAP which she reports that she uses at home but her equipment was in poor condition. With a new mask she has been set up for her CPAP here in the hospital but she has not been using consistently. Time Spent with Patient Time attestation: Total time spent providing and/or coordinating discharge services: Exam Narrative: Exam Narrative: She is alert and appears in no distress. Noting ongoing pain in her left shoulder. Inspection of the shoulder shows mature bruising over the lateral chest and anterior shoulder. Left arm is flaccid. Breathing is unlabored. She is unhappy about long-term facility discharge plans Const: Vital Signs, click to edit/add: Vital Signs - 24 hr 03/18/23 16:35 03/18/23 16:35 03/18/23 23:30 Temperature 98.2 F Pulse Rate [Pulse Oximeter] 92 Respiratory Rate 18 18 Blood Pressure [Le ft Arm] 135/68 Blood Pressure [Ri ght Arm] Pulse Oximetry 93 93 Oxygen Delivery Me thod Room Air Room Air Oxygen Flow Rate 03/18/23 23:45 03/18/23 23:45 03/18/23 23:45 Temperature 98.3 F Pulse Rate [Pulse Oximeter] 96 96 Respiratory Rate 18 20 18 Blood Pressure [Le ft Arm] Blood Pressure [Ri ght Arm] 132/54 L Pulse Oximetry 82 L 82 L Oxygen Delivery Me thod CPAP CPAP Oxygen Flow Rate 0 03/19/23 06:00 Temperature Pulse Rate [Pulse Oximeter] Respiratory Rate 20 Blood Pressure [Le ft Arm] Blood Pressure [Ri ght Arm] Pulse Oximetry Oxygen Delivery Me thod Oxygen Flow Rate Documenting provider has reviewed patient's vital signs: yes DS: Data Data Completed and Pending Labs on day of discharge: Labs from last 24 hours 03/16/23 05:58 RBC Fol Joo for Serum 2.[address] Chest/Ab/Pelvis: Radiologist's impression: HISTORY: Blunt trauma. Fall. Pain. TECHNIQUE: Intravenous contrast enhanced CT of the chest, abdomen and pelvis. 150 mL Isovue-370 intravenous contrast was administered. COMPARISON: Chest CT from 06/03/2021. FINDINGS: Chest: Atherosclerotic changes of the thoracic aorta without aneurysm or dissection. There is no pericardial effusion. No mediastinal hematoma. Assessment for pulmonary embolism limited by respiratory motion artifact. There is no large/central pulmonary embolism. No technically enlarged mediastinal or hilar lymph nodes. - Lung parenchymal assessment limited by respiratory motion artifact. There are areas of atelectasis within both lungs. Ground-glass opacity within the right middle lobe laterally may relate either to atelectasis or ground-glass infiltrate. There is no lung consolidation. No pleural effusion or pneumothorax. Assessment for pulmonary nodules is severely limited by respiratory motion artifact. - Rib assessment limited by motion artifact. No acute displaced rib fracture is seen. No acute sternal fracture. There degenerative changes of the thoracic spine. No acute thoracic spine fracture. ----- Abdomen and pelvis: No acute liver parenchymal injury. There is fatty infiltration of liver. Gallbladder is distended with small gallstones. No biliary ductal dilatation. No definite acute splenic parenchymal injury. The low density noted posteriorly is felt to be artifactual. No focal pancreatic abnormality. Bilateral adrenal gland nodules are unchanged. No acute renal parenchymal injury. No hydronephrosis. No renal mass is inherent. Urinary bladder is decompressed by a catheter. - No dilated small bowel loops. No appendicitis. Colonic diverticulosis without acute diverticulitis. No fluid collection or free air. - Atherosclerotic changes of the abdominal aorta without aneurysm. Small nonspecific retroperitoneal lymph nodes. - No acute pelvic fracture. There are degenerative changes of the sacroiliac joints and hips. Degenerative changes within the spine. IMPRESSION: 1. No acute fractures. 2. Areas of atelectasis within both lungs. Ground-glass opacity within the right middle lobe may relate to atelectasis or ground-glass infiltrate. No pneumothorax or pleural effusion. 3. No mediastinal hematoma or acute traumatic aortic injury. 4. No solid organ injury within the abdomen. No abdominal or pelvic free fluid. 5. Fatty infiltration of the liver. Distended gallbladder with small gallstones. 6. No change in adrenal gland nodules. Shoulder: Radiologist's impression: INDICATION: BLUNT TRAUMA SHOULDER PAIN HISTORY: Fall. Evaluate for fracture. COMPARISON: None. TECHNIQUE: Left shoulder, 3 views. 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 There is no acute fracture visualized. Mineralization is reduced. No foreign body or soft tissue gas. The scapula appears intact. No dislocation on the transscapular Y-view. IMPRESSION: 1. No acute bone abnormality. 2. Degenerative arthrosis. CT scan - head: Radiologist's impression: INDICATION: Head trauma. Comparison 06/03/2021. TECHNIQUE: Noncontrast CT head. FINDINGS: Mild motion artifact. Normal brain parenchymal morphology. 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 Associated ex vacuo dilatation of the right lateral ventricle. No acute intracranial hemorrhage, acute infarct, mass effect, or fracture. No midline shift. Normal calvarium and skull base. Visualized paranasal sinuses are clear. Allowing for artifact, mastoid air cells are grossly clear. IMPRESSION: 1. Motion artifact. 2. No acute intracranial abnormality. 3. 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 Ex vacuo dilatation of the right lateral ventricle CT- Other: Radiologist's impression: C-spine CT: NDICATION: Fall. Neck pain. COMPARISON: 06/03/2021. TECHNIQUE: Noncontrast CT cervical spine. FINDINGS: Stable straightening and reversal of the normal cervical lordosis. Otherwise, normal vertebral body and facet alignment. No acute fractures. No vertebral body loss of height. No spondylolisthesis. No fractures of the visualized upper ribs. No prevertebral soft tissue swelling. Cervical spondylosis with multilevel disc degeneration. C1-2: No spinal canal narrowing. C2-3, C3-4 and C4-5: No spinal canal neural foraminal narrowing. C5-6: No spinal canal neural foraminal narrowing. C6-7: Disc degeneration. No narrowing of the spinal canal. Mild narrowing of the right neural foramen. No narrowing of left neural foramen. C7-T1: No spinal canal neural foraminal narrowing. Lung apices are clear. Carotid artery calcifications at the level of C3-4. IMPRESSION: 1. Straightening of the normal cervical lordosis. Otherwise normal alignment. 2. No acute fractures. No vertebral body loss of height. 3. No prevertebral soft tissue swelling. 4. Stable cervical spondylosis Ankle x-ray: Radiologist's impression: INDICATION: Pain and bruising. TECHNIQUE: Three views left ankle. COMPARISON : 05 Nov 2020 IMPRESSION: Band of high attenuation in the medial tibial metaphysis and plafond. Query methylmethacrylate cement from prior surgery. Recessed anchor screw medial pole of the navicular. No acute fracture. Mild osteoarthritis narrowing in the ankle. No obvious effusion. Spurring at the Achilles insertion posterior process calcaneus and moderate os calcis spur. Recessed screw incompletely assessed at the 1st metatarsal distal metaphysis and head. Overall, no meaningful change from comparison. Femur x-ray: Radiologist's impression: NDICATION: Fall with pain and bruising. TECHNIQUE: Two views left femur. IMPRESSION: Anatomic alignment at the hip. No obvious dislocation or significant degenerative or inflammatory change with some limitation due to body habitus. Total knee prosthesis. No knee joint effusion. No femoral fracture. Discharge Plan Discharge Disposition: [facility] Date of Admission: 03/10/23 07:32 Attending Provider on Discharge: Remington Angel Primary Care Provider: Cruz Damon Anticipated Discharge Date/Time: 03/19/23 15:00 Discharge Medications: New Metamucil 3.4 gram/5.4 gram powder 1 tbsp PO BID Qty: 660 0RF Rx Instructions: mix into at least 8 oz of water or juice before administering senna 8.6 mg capsule 17.2 mg PO BID Qty: 120 0RF ferrous sulfate 325 mg (65 mg iron) tablet 650 mg PO Q OTHER DAY Qty: 30 0RF nystatin 100,000 unit/gram cream 1 applic topical BID Qty: 30 0RF Continued atorvastatin 40 mg tablet 40 mg PO DAILY oxybutynin chloride 15 mg tablet extended release 24hr 15 mg PO DAILY trazodone 50 mg tablet 25 mg PO DAILY PRN Patient Comments: prn for agitation levetiracetam 500 mg tablet 500 mg PO BID gabapentin 400 mg capsule 400 mg PO TID trazodone 100 mg tablet 200 mg PO QPM mirtazapine 30 mg tablet 30 mg PO QPM buspirone 30 mg tablet 30 mg PO BID omeprazole 20 mg capsule,delayed release(DR/EC) 20 mg PO DAILY fluticasone propionate 50 mcg/actuation spray,suspension 1 spray INTRANASAL DAILY lamotrigine 100 mg tablet 200 mg PO QPM escitalopram oxalate 20 mg tablet 20 mg PO DAILY Eliquis 5 mg tablet 5 mg PO BID albuterol sulfate 90 mcg/actuation HFA aerosol inhaler 2 puff inhalation Q4H PRN aspirin 81 mg capsule 81 mg PO DAILY loratadine [Claritin] 10 mg tablet 10 mg PO DAILY melatonin 5 mg capsule 10 mg PO QPM Discontinued lisinopril 5 mg tablet 5 mg PO DAILY Discharge Orders: Discharge Order (Routine); Ordered 03/19/23 Ordered By: Remington Angel Activity Level: Up with assist Discharge Diet: Heart Healthy (2 gm sodium, low fat) Follow Up Appointments: Cruz Damon MD [Primary Care Provider] - Discharge Comments: Continue home CPAP. Admit to: SNF Discharge Potential: Fair Length of Stay: 30-90 days Can use facility standing orders?: Yes Code Status: Full Code Rehab Potential: Fair Therapy: Physical Therapy and Occupational Therapy Therapy Orders: Evaluate and Treat Oxygen: Yes Oxygen Delivery Method: Nasal Cannula Oxygen Flow Rate: 0-2 L per nasal cannula to maintain oxygen saturation above 90%. Urinary Catheter: No
--- NOTE | 2023-03-19 14:42 | PC.NURSE ---
O2 SATS 83%RA. REPLACED 2L O2 PER NC AND SATS INCREASED 91-93%. INTERMITTENT COUGH. PATIENT EXPRESSING FRUSTRATION WITH DIET RESTRICTIONS. UP WITH EZ STAND THIS AM TO RECLINER AND BSC. AFTER LUNCH, PATIENT REFUSING TO USE EZ STAND AND RETURNED TO BED WITH CEILING LIFT. PATIENT INCONTINENT OF URINE IN BED. PLAN TO TRANSFER SNF. ATTEMPTED TWICE (AT 1300 AND 1415) TO GIVE NURSE TO NURSE AT PHONE NUMBER [phone]. STAFF ANSWERED AND TRANSFERRED TO NURSING DEPARTMENT, BUT PHONE RANG WITH NO ONE ANSWERING AND NO ANSWERING MACHINE TO LEAVE MESSAGE.
--- NOTE | 2023-03-19 16:43 | PC.NURSE ---
Discharge note: The patient discharged to [facility] in the [facility] via non emergent EMS transport @ 0516. All of her belongings were sent with her... family was her to say goodbye to the patient before she left. In her belongings was her CPAP. Nurse to Nurse report was given to the facility via phone prior to her leaving.
== END 2023-03-19 15:45 | DRG 689 ==
LOC: ED 17:09 → MEDSURG 17:42
PROVIDERS: Family Medicine; Admitting Provider Family Medicine; Emergency Provider Emergency Medicine; PCP Family Medicine; Visit Provider Family Medicine
DX: N39.0 Urinary tract infection, site not specified (principal); J18.9 Pneumonia, unspecified organism; J44.0 Chronic obstructive pulmonary disease with (acute) lower respiratory infection; I69.854 Hemiplegia and hemiparesis following other cerebrovascular disease affecting left non-dominant side; F03.911 Unspecified dementia, unspecified severity, with agitation; F33.2 Major depressive disorder, recurrent severe without psychotic features; Z68.43 Body mass index [BMI] 50.0-59.9, adult; B96.4 Proteus (mirabilis) (morganii) as the cause of diseases classified elsewhere; B96.20 Unspecified Escherichia coli [E. coli] as the cause of diseases classified elsewhere; R42 Dizziness and giddiness; E66.01 Morbid (severe) obesity due to excess calories; I48.0 Paroxysmal atrial fibrillation; Z79.01 Long term (current) use of anticoagulants; W06.XXXA Fall from bed, initial encounter; Y92.003 Bedroom of unspecified non-institutional (private) residence as the place of occurrence of the external cause; S70.00XA Contusion of unspecified hip, initial encounter; F17.210 Nicotine dependence, cigarettes, uncomplicated; Z99.81 Dependence on supplemental oxygen; Z58.89 Other problems related to physical environment; Z63.8 Other specified problems related to primary support group; G47.33 Obstructive sleep apnea (adult) (pediatric); L30.8 Other specified dermatitis; D64.9 Anemia, unspecified; I25.10 Atherosclerotic heart disease of native coronary artery without angina pectoris; G40.909 Epilepsy, unspecified, not intractable, without status epilepticus; R13.14 Dysphagia, pharyngoesophageal phase; K21.9 Gastro-esophageal reflux disease without esophagitis; I10 Essential (primary) hypertension; F41.9 Anxiety disorder, unspecified; F60.9 Personality disorder, unspecified; S09.90XA Unspecified injury of head, initial encounter; M25.512 Pain in left shoulder; G89.29 Other chronic pain; R10.9 Unspecified abdominal pain; K59.00 Constipation, unspecified; L89.90 Pressure ulcer of unspecified site, unspecified stage; Z59.19 Other inadequate housing
CPT/HCPCS: 36415; 51798; 70450; 71045; 71260; 72125; 73030; 73552; 73610; 74177; 80048; 80053; 81001; 82270; 82607; 82728; 82746; 82803; 83036; 83540; 83550; 83605; 84443; 84484; 85018; 85025; 85027; 85045; 85610; 86140; 87040; 87081; 87086; 87186; 87631; 92610; 93005; 94640; 94664; 94761; 96365; 97110; 97162; 97165; 97530; 97535; 99285; G0378; A9270; J0456; J0692; J0696; J2405; J3010; J3370; J7030; J7050; J7120; Q9967

== ENCOUNTER 2023-03-19 15:51 | Outpatient (CLI) | payer MEDICARE, MEDICAID, SELFPAY ==
--- NOTE | 2023-03-21 16:08 | PC.SOCIAL ---
Social work: Received call from pt's son, Douglas Willams, , stating they are unhappy with the prison facility pt was discharged to and requesting information from hospital for evaluation for admission be sent to Alicia in admissions at [facility] in [place] near where the son lives. Called and faxed information to Alicia at [phone]. Son is aware her current prison facility would need to provide current information, nurse to nurse and MD orders to admit if pt is accepted to that facility. Provided son with information on the [facility] for [facility] care in case he wants to contact them for assistance.
== END 2023-03-19 15:52 | disposition home or self-care (01) ==
LOC: AMB 03-21 10:25
PROVIDERS: PCP Family Medicine; Visit Provider Family Medicine
DX: R53.1 Weakness (principal)
CPT/HCPCS: A0425; A0428

== ENCOUNTER 2024-08-08 18:21 | Outpatient (CLI) | payer MEDICARE, MEDICAID, SELFPAY | END 2024-08-08 18:22 | disposition home or self-care (01) | LOC: AMB 08-09 12:35 | PROVIDERS: PCP Family Medicine; Visit Provider Family Medicine | DX: R56.9 Unspecified convulsions (principal); R11.10 Vomiting, unspecified; R10.9 Unspecified abdominal pain; R53.1 Weakness | CPT/HCPCS: A0425; A0429 ==